=== PATIENT | male | born 1975 | race Caucasian/White ===

== ENCOUNTER 2019-04-28 12:08 | Inpatient (IN) | payer MEDICAID, SELFPAY | END 2019-04-30 15:40 | disposition home or self-care (01) | DRG 881 | PROVIDERS: Emergency Provider Emergency Medicine | DX: F32.9 Major depressive disorder, single episode, unspecified (principal); R45.851 Suicidal ideations; Z59.0 Homelessness; Z28.21 Immunization not carried out because of patient refusal; F20.1 Disorganized schizophrenia; F17.210 Nicotine dependence, cigarettes, uncomplicated ==

== ENCOUNTER 2019-05-05 22:16 | Inpatient (IN) | payer MEDICAID, SELFPAY ==
[2019-05-05 22:46] VITALS: BMI 31.1
[2019-05-05 22:54] VITALS: BP 122/94; PULSE 92; RESP 18; TEMP 36.6; O2SAT 98
--- NOTE | 2019-05-05 22:54 | ED_ITS ---
HPI - Psych General: Chief Complaint: Psychiatric Symptoms Stated Complaint: si/kidney pain Time Seen by Provider: 05/05/19 22:54 Source: patient Mode of arrival: ambulatory Limitations: no limitations History of Present Illness: HPI Narrative: pt states he is suicidal; reports 6-7 days ago he tried to OD on medications and was subsequently sent to [facility]; was released 5 days ago; pt reports meth use 5 days ago; reports he is homeless MD complaint: suicidal ideation Duration: constant History of same: Yes Relieving factors: none Context: recent drug abuse, significant life stressor and other (homelessness ) Associated symptoms: Reports depression and suicidal ideation Treatments prior to arrival: none Review of Systems Const: Denies: fever or chills Card: Denies: chest pain, palpitations, lightheadedness or syncope Resp: Denies: shortness of breath GI: Denies: abdominal pain, nausea, vomiting or diarrhea Skin/Breast: Denies: rash Neuro: Denies: headache Psych: Reports: depression and suicidal ideation PFSH ED PFSH: Statuses (acute, chronic, etc) shown below reflect problem list status as previously entered and may not be historically accurate Social History Smoking and tobacco status: current every day smoker Physical Exam Const: COMMON NORMALS: no apparent distress, oriented x3, alert and well nourished GENERAL APPEARANCE: cooperative and well kempt Resp: COMMON NORMALS: normal respiratory effort and clear to auscultation bilaterally AUSCULTATION: clear to auscultation bilaterally Cardio: COMMON NORMALS: regular rate and regular rhythm RATE: regular rate RHYTHM: regular rhythm Neuro: COMMON NORMALS: oriented x3 SENSORIUM/ORIENTATION: Yes alert Psych: COMMON NORMALS: mental status grossly normal, thought process normal, cooperative, affect normal, speech normal and activity/motor behavior normal APPEARANCE: Yes well kempt ACTIVITY/MOTOR BEHAVIOR: Yes appropriate eye contact and No psychomotor agitation SPEECH: Yes normal speech THOUGHT PROCESS: normal thought process MEMORY/COGNITION: Yes cognition grossly intact INSIGHT: insight good JUDGEMENT: judgment good MDM - Psych MDM Narrative: Medical decision making narrative: Dr. Byrd will place admit orders Lab Data: Labs: Lab Results 05/05/19 05/05/19 05/06/19 Range/Units 23:12 23:40 00:03 WBC 5.8 (4.0-10.0) 10^3/ uL RBC 4.92 (4.1-5.3) 10^6/u L Hgb 13.3 (11.7-16.6) g/dL Hct 41.5 L (42.0-52.0) % MCV 84.3 (80-94) fL MCH 27.0 L (28.0-34.0) pg MCHC 32.0 (30.0-36.0) g/dL RDW 12.5 (12.1-15.1) % Plt Count 275 (130-400) 10^3/c mm MPV 10.2 (7.4-10.4) fL Neut % (Auto) 42.2 % Lymph % (Auto) 45.8 % [place] % (Auto) 9.6 % Eos % (Auto) 1.9 % Baso % (Auto) 0.3 % Neut # (Auto) 2.5 (1.8-7.7) 10^3/u L Lymph # (Auto) 2.7 (0.8-4.8) 10^3/u L [place] # (Auto) 0.6 (0.2-0.9) 10^3/u L Eos # (Auto) 0.1 (0.0-0.8) 10^3/u L Baso # (Auto) 0.0 (0.0-0.1) 10^3/u L Nucleated RBC % (a uto) 0 % Nucleated RBCs # 0.0 /100WBC Sodium 137 (136-145) mmol/L Potassium 3.8 (3.5-5.1) mmol/L Chloride 100 (98-107) mmol/L Carbon Dioxide 26 (22-29) mmol/L Anion Gap 14.8 (5-19) BUN 9 (6-20) mg/dL Creatinine 0.6 L (0.7-1.2) mg/dL GFR Calculation 147.0 H (90-130) mL/min Glucose 90 (74-109) mg/dL Calcium 9.7 (8.6-10.0) mg/Dl Total Bilirubin 0.5 (0.15-1.2) mg/dL AST 29 (0-40) U/L ALT 32 (0-41) U/L Alkaline Phosphata se 82 (40-130) IU/L Total Protein 6.8 (6.6-8.7) g/dL Albumin 4.4 (3.5-5.2) g/dL Globulin 2.4 (1.3-4.6) g/dL Salicylates < 0.3 L (3-10) mg/dL Urine Opiates Scre en Negative (Negative) ng/mL Acetaminophen < 5.0 L (10-30) ug/mL Ur Barbiturates Sc reen Negative (Negative) ng/mL Ur Phencyclidine S crn Negative (Negative) ng/mL Ur Amphetamines Sc reen Positive H (Negative) ng/mL U Benzodiazepines Scrn Negative (Negative) ng/mL Urine Cocaine Scre en Negative (Negative) ng/mL U Marijuana (THC) Screen Negative (Negative) ng/mL Ethyl Alcohol < 10 (0-10) mg/dL Discharge Plan Discharge Patient Disposition: Home, Self-Care Clinical Impression: Suicidal ideation Condition: Stable Coding Level of Care Code ED Figurine Maker for Sriram Davalos Exam Problem Focused
[2019-05-05 23:22] LABS: Basophils % 0.3 %; Eosinophils # 0.1 10^3/uL (0.0-0.8); Eosinophils % 1.9 %; Hematocrit 41.5 % (42.0-52.0); Hemoglobin 13.3 g/dL (11.7-16.6); Lymphocytes # 2.7 10^3/uL (0.8-4.8); Lymphocytes % 45.8 %; Mean Corpuscular Volume 84.3 fL (80-94); Mean Platelet Volume 10.2 fL (7.4-10.4); Monocytes # 0.6 10^3/uL (0.2-0.9); Monocytes % 9.6 %; Neutrophils # 2.5 10^3/uL (1.8-7.7); Neutrophils % 42.2 %; Nucleated Red Blood Cells % 0 %; Platelet Count 275 10^3/cmm (130-400); Red Blood Count 4.92 10^6/uL (4.1-5.3); Red Cell Distribution Width 12.5 % (12.1-15.1); White Blood Count 5.8 10^3/uL (4.0-10.0)
[2019-05-06] VITALS (7 sets, daily range): BP systolic 109–133; BP diastolic 64–88; PULSE 68–90; RESP 14–20; TEMP 36.5–36.9; O2SAT 94–100
[2019-05-06 00:04] LABS: Alanine Aminotransferase 32 U/L (0-41); Albumin Level 4.4 g/dL (3.5-5.2); Alkaline Phosphatase 82 IU/L (40-130); Anion Gap 14.8 (5-19); Aspartate Amino Transferase 29 U/L (0-40); Blood Urea Nitrogen 9 mg/dL (6-20); Calcium 9.7 mg/Dl (8.6-10.0); Carbon Dioxide 26 mmol/L (22-29); Chloride 100 mmol/L (98-107); Globulin 2.4 g/dL (1.3-4.6); Glucose 90 mg/dL (74-109); Potassium 3.8 mmol/L (3.5-5.1); Sodium 137 mmol/L (136-145); Total Bilirubin 0.5 mg/dL (0.15-1.2); Total Protein 6.8 g/dL (6.6-8.7)
[2019-05-06 00:08] LABS: Acetaminophen < 5.0 ug/mL (10-30); Alcohol Level < 10 mg/dL (0-10); Salicylate < 0.3 mg/dL (3-10)
[2019-05-06 00:32] LABS: Barbiturates Screen Urine Negative (Negative); Benzodiazepines Screen Urine Negative (Negative); Cocaine Screen Urine Negative (Negative); Opiate Screen Urine Negative (Negative); PCP Screen Urine Negative (Negative); THC Screen Urine Negative (Negative)
[2019-05-06 00:34] LABS: Amphetamines Screen Urine Positive (Negative)
--- NOTE | 2019-05-06 13:37 | PM.NHP ---
Providers/Chief Complaint Admitting Physician: Jorge L Ceron MD Chief Complaint: si/kidney pain HPI [facility] History of Present Illness Yahir Kirkland is a 43 year old male who presented to the ED for as seventh hospitalization recently. He had 6 hospitalizations last year and the last 2 were very quick with him being admitted and being discharged within days. He presents reporting that he is homeless and he is needing his Abilify shot. Per his last hospitalization with Dr. Forrester it appears that he has struggled getting the 1 version of the injection Aristada. Further complicating matters is his continued addiction. He reports that he has been using methamphetamine and he is positive this time for meth. He reports that he has been working on and off that he has been on disability now for 10 years. He reports that last year his father and the property that he lived on was sold and things have been really tough since. He reports that he is on the Abilify injection and that he got it a week ago but we discussed the fact that he would need to continue with the oral medication for some period of time. Additionally we discussed the risks benefits and alternatives of considering naltrexone as an augmentation agent for his meth addiction that has shown some promise and he understood and agreed to proceed as is documented in this note. He denies any significant psychosocial changes since his last hospitalization. Per recent EVAL: History of Present Illness Date of Service: Mar 31, 2019 Chief Complaint: It's getting cold and I don't have any place to go. I was thinking about killing myself. HPI: History of present illness: Yahir Cancino presents on a voluntary basis for his fifth admission in 12 months. He vaguely reports suicidal ideation without intent or plan. He says that since his last admission here in November, he has not had any medication for the past month. He took the medications for a couple months and then stop mainly out of financial reasons. However he apparently did have money for access to methamphetamine. His urine drug screen is positive for meth. He does not give an estimate on how much she has been using. However he does report that he was charged with possession 2 weeks ago and has an upcoming court date. This is not supported by a surgeon public records at this time. Patient states that he is looking for a residential drug treatment. However the patient also states that one of his primary concerns at this time is that he is homeless and winter is coming. Otherwise he denies symptoms of depression. His suicidal ideation is passive only. He denies presence of auditory or visual hallucinations. He has good hedonic capacity. There is no apparent imminent risk to self or others. Patient is admitted under a voluntary status. Meds N[facility] Allergies Allergy/AdvReac Type Severity Reaction Status Date / Time No Known Allergies Allergy Verified 05/06/19 04:07 PFSH [facility] PFSH: Statuses (acute, chronic, etc) shown below reflect problem list status as previously entered and may not be historically accurate Social History Smoking and tobacco status: current every day smoker Mental Status Exam MSE Comments: This is an obese white male with adequate dress grooming and eye contact. No abnormal movements except for psychomotor retardation. Cooperative with exam in mild distress reportedly secondary to kidney stones. Speech was decreased rate and volume. Mood described as depressed affect congruent. Thought process organized. Thought content: Patient denied any homicidal ideation but did endorse suicidal ideation, there were no delusions reported or noted, he denied any auditory visual hallucinations. Attention and concentration were limited and memory appeared mostly reliable but none were formally tested. He is alert and oriented x3. Insight and judgment are limited versus impaired. Vitals/I&O/Wt Last Vital Signs Temp 98.4 F 05/06/19 13:58 Pulse 90 05/06/19 13:58 Resp 20 H 05/06/19 13:58 BP 133/81 05/06/19 13:58 Pulse Ox 100 05/06/19 13:58 Weight last 48 hrs Weight 102.693 kg Weight 104.326 kg A&P Assessment and plan (1) Adjustment disorder with mixed disturbance of emotions and conduct: This is a 43-year-old white male with a couple year history of depression and significant psychosocial stressors which have led to him being homeless and with limited resources even while on disability who presents struggling to have access to his medication. 1. Continue current medications. Except: 2. Start Abilify 10 mg p.o. every morning. And start naltrexone tomorrow. 3. Encouraged individual, group and milieu therapy. 4. Continue every 15 minute checks for safety. 5. Consider hospitalist consult for this reported kidney stone. Status: Acute Code(s): F43.25 - Adjustment disorder with mixed disturbance of emotions and conduct Involuntary Hold Information 96 Hour Hold: 96 Hour Involuntary Admission: No Attestations [facility] Medical Necessity Statement*: Inpatient hospitalization is medically necessary and the clinically appropriate intervention at this time. He will be in the hospital for over 2 midnights. We will initiate medication and titrate and monitor for effect. Likely length of stay 2 to 4 days. 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
[2019-05-06] MEDS: lithium carbonate 300 mg Capsule PO (17:17)
[2019-05-06] MEDS: trazodone 50 mg Tablet PO (21:08)
[2019-05-06] MEDS: doxepin 10 mg Capsule PO (21:08)
[2019-05-07 06:00] VITALS: BP 128/82; PULSE 66; RESP 18; TEMP 36.8; O2SAT 97
[2019-05-07] MEDS: acetaminophen 325 mg Tablet 650 MG PO ×2 (09:18→18:44)
[2019-05-07] MEDS: lithium carbonate 300 mg Capsule PO ×2 (09:19→17:12)
[2019-05-07 13:33] VITALS: BP 131/79; PULSE 75; RESP 18; TEMP 37; O2SAT 93
--- NOTE | 2019-05-07 14:19 | PM.NPN ---
Subjective [facility] Subjective: Interval history: Yahir presented today mostly disengaged. He has continued to stay to himself in his room mostly. He is not complaining as much today about his kidney issues. But he is not having a real sense of what his plan is. He was reluctant to the idea of starting the Abilify. But later in the day he agreed to started as I explained that he would only really need to take it for a period of time while we are waiting for the Abilify to fully take effect. He continues to be on board with the lithium and endorsed a willingness to work with the social work team we can find options for discharge. Mental Status Exam MSE Comments: This is an obese white male with adequate dress grooming and eye contact. No abnormal movements except for psychomotor retardation. Cooperative with exam in no acute distress. Speech was decreased rate and volume. Mood described as depressed affect congruent. Thought process organized. Thought content: Patient denied any homicidal ideation but did endorse suicidal ideation, there were no delusions reported or noted, he denied any auditory visual hallucinations. Attention and concentration were limited and memory appeared mostly reliable but none were formally tested. He is alert and oriented x3. Insight and judgment are limited versus impaired. Vitals/I&O/Wt Last Vital Signs Temp 98.2 F 05/08/19 06:00 Pulse 63 05/08/19 06:00 Resp 18 05/08/19 06:00 BP 149/85 05/08/19 06:00 Pulse Ox 97 05/08/19 06:00 A&P Additional A&P Information Additional A&P Information: This is a 43-year-old white male with a couple year history of depression and significant psychosocial stressors which have led to him being homeless and with limited resources even while on disability who presents struggling to have access to his medication. 1. Continue current medications. Except: 2. Start Abilify 15 mg p.o. every morning. And start naltrexone tomorrow. 3. Encouraged individual, group and milieu therapy. 4. Continue every 15 minute checks for safety. 5. Consider hospitalist consult for this reported kidney stone. Involuntary Hold Information 96 Hour Hold: 96 Hour Involuntary Admission: No Attestations [facility] Medical Necessity Statement*: Inpatient hospitalization is medically necessary and the clinically appropriate intervention at this time.We will initiate medication and titrate and monitor for effect. Likely length of stay 2 to 4 days. Coding Level of Care Code Acute C++ Quant Developer for Tanyag Anoop
[2019-05-07] MEDS: ARIPiprazole 30 mg Tablet 15 MG PO (18:43)
[2019-05-07] MEDS: doxepin 10 mg Capsule PO (20:41)
[2019-05-07 20:52] VITALS: BP 119/66; PULSE 83; RESP 16; TEMP 36.8; O2SAT 94
[2019-05-08 06:00] VITALS: BP 149/85; PULSE 63; RESP 18; TEMP 36.8; O2SAT 97
--- NOTE | 2019-05-08 07:25 | PM.NPN ---
Vitals/I&O/Wt Last Vital Signs Temp 98.2 F 05/08/19 06:00 Pulse 63 05/08/19 06:00 Resp 18 05/08/19 06:00 BP 149/85 05/08/19 06:00 Pulse Ox 97 05/08/19 06:00 Involuntary Hold Information 96 Hour Hold: 96 Hour Involuntary Admission: No Coding Level of Care Code Acute Manager Combination for Sriram Davalos
--- NOTE | 2019-05-08 08:28 | PM.NDC ---
Diagnoses at Discharge Discharge Diagnosis (1) Adjustment disorder with mixed disturbance of emotions and conduct: Status: Acute Reason for Visit Reason for Visit: Reason For Visit: si/kidney pain Brief History: HPI [facility] History of Present Illness Yahir Kirkland is a 43 year old male who presented to the ED for as seventh hospitalization recently. He had 6 hospitalizations last year and the last 2 were very quick with him being admitted and being discharged within days. He presents reporting that he is homeless and he is needing his Abilify shot. Per his last hospitalization with Dr. Forrester it appears that he has struggled getting the 1 version of the injection Aristada. Further complicating matters is his continued addiction. He reports that he has been using methamphetamine and he is positive this time for meth. He reports that he has been working on and off that he has been on disability now for 10 years. He reports that last year his father and the property that he lived on was sold and things have been really tough since. He reports that he is on the Abilify injection and that he got it a week ago but we discussed the fact that he would need to continue with the oral medication for some period of time. Additionally we discussed the risks benefits and alternatives of considering naltrexone as an augmentation agent for his meth addiction that has shown some promise and he understood and agreed to proceed as is documented in this note. He denies any significant psychosocial changes since his last hospitalization. Per recent EVAL: History of Present Illness Date of Service: Mar 31, 2019 Chief Complaint: It's getting cold and I don't have any place to go. I was thinking about killing myself. HPI: History of present illness: Yahir Cancino presents on a voluntary basis for his fifth admission in 12 months. He vaguely reports suicidal ideation without intent or plan. He says that since his last admission here in November, he has not had any medication for the past month. He took the medications for a couple months and then stop mainly out of financial reasons. However he apparently did have money for access to methamphetamine. His urine drug screen is positive for meth. He does not give an estimate on how much she has been using. However he does report that he was charged with possession 2 weeks ago and has an upcoming court date. This is not supported by a surgeon public records at this time. Patient states that he is looking for a residential drug treatment. However the patient also states that one of his primary concerns at this time is that he is homeless and winter is coming. Otherwise he denies symptoms of depression. His suicidal ideation is passive only. He denies presence of auditory or visual hallucinations. He has good hedonic capacity. There is no apparent imminent risk to self or others. Patient is admitted under a voluntary status. Hospital Course Hospital Course Yahir presented to the emergency room reporting lethality and active addiction. He endorsed not having access to his medication which was leading to poor choices. He was admitted to the neuropsychiatric unit where he slowly acclimated to the individual, group and milieu therapies provided. He was started on Abilify while we work with the social workers to figure out if we would be able to get his injections, and he responded well. During the hospitalization he had routine laboratory studies which were within normal limits except for a few outliers. Additionally he had a general medical evaluation which was also within normal limits and revealed no acute processes. Discharge Summary At the time of discharge he denied all lethality, his mood and psychosis had improved and he endorsed a plan to follow-up with outpatient services and the recommendations of the social workers and attempt to get some psychosocial stability in his life. He had achieved the maximum benefit from an inpatient hospitalization so he was discharged. Involuntary Hold Information 96 Hour Hold: 96 Hour Involuntary Admission: No Mental Status Exam MSE Comments: This is an obese white male with adequate dress grooming and eye contact. No abnormal movements except for psychomotor retardation. Cooperative with exam in no acute distress. Speech was decreased rate and volume. Mood described as better affect less subdued. Thought process organized. Thought content: Patient denied any suicidal or homicidal ideation, there were no delusions reported or noted, he denied any auditory visual hallucinations. Attention and concentration were improved and memory appeared mostly reliable but none were formally tested. He is alert and oriented x3. Insight and judgment are improving. Discharge Data Vitals: Last Vital Signs Temp 97.8 F 05/08/19 15:15 Pulse 81 05/08/19 15:15 Resp 20 H 05/08/19 15:15 BP 130/81 05/08/19 15:15 Pulse Ox 98 05/08/19 15:15 Discharge Plan Discharge Patient Disposition: Home, Self-Care Condition: Stable Prescriptions: No Action naproxen [EC-Naprosyn] 500 mg tablet,delayed release (DR/EC) 500 mg PO BID PRN (Reason: pain) Qty: 20 RF: 0 trazodone 50 mg Tablet 50 mg PO BEDTIME PRN (Reason: Sleep) Qty: 15 RF: 1 lithium carbonate 300 mg Capsule 300 mg PO BID Qty: 60 RF: 2 gabapentin 100 mg Capsule 100 mg PO TID Qty: 90 RF: 0 aripiprazole 30 mg Tablet 15 mg PO DAILY Qty: 30 RF: 2 Discharge Orders: Discharge Order (Routine); Ordered 05/08/19 Ordered By: Jorge L Ceron Patient Instructions: Depression, Doxepin (By mouth), [place] (By mouth), Aripiprazole (By mouth) Activity Restrictions/Additional Instructions: db To initiate services at [facility] you may go there during the walk-in hours and request initial intake. Walk-in hours 7:30-2:[address] 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
[2019-05-08] MEDS: ARIPiprazole 30 mg Tablet 15 MG PO (08:55)
[2019-05-08] MEDS: lithium carbonate 300 mg Capsule PO (08:56)
[2019-05-08 13:47] VITALS: BP 130/81; PULSE 81; RESP 20; TEMP 36.6; O2SAT 98
[2019-05-08 15:12] VITALS: BP 130/81; PULSE 81; RESP 20; TEMP 36.6; O2SAT 98
[2019-05-08 15:15] VITALS: BP 130/81; PULSE 81; RESP 20; TEMP 36.6; O2SAT 98
== END 2019-05-08 15:38 | disposition home or self-care (01) | DRG 882 ==
LOC: ER 05-06 00:30 → NP 05-06 00:58
PROVIDERS: Admitting Provider Psychiatry & Neurology Psychiatry; Emergency Provider Physician Assistant; Visit Provider Psychiatry & Neurology Psychiatry
DX: F43.25 Adjustment disorder with mixed disturbance of emotions and conduct (principal); F15.90 Other stimulant use, unspecified, uncomplicated; F17.210 Nicotine dependence, cigarettes, uncomplicated; Z59.0 Homelessness
CPT/HCPCS: 36415; 80053; 80307; 85025; 99284

== ENCOUNTER 2019-05-05 22:16 | Emergency (ER) | payer MEDICAID, SELFPAY | END 2019-05-06 02:07 | disposition admitted as inpatient to this hospital (09) | LOC: ER 06-15 09:54 | PROVIDERS: Emergency Provider Physician Assistant; PCP Urology | DX: F32.9 Major depressive disorder, single episode, unspecified (principal); R45.851 Suicidal ideations; F17.210 Nicotine dependence, cigarettes, uncomplicated; F19.10 Other psychoactive substance abuse, uncomplicated; Z59.0 Homelessness | CPT/HCPCS: 36415; 80053; 80307; 85025; 99284; 99285 ==

== ENCOUNTER 2019-05-15 17:43 | Emergency (ER) | payer MEDICAID, SELFPAY ==
[2019-05-15 18:07] VITALS: BP 118/78; PULSE 86; RESP 16; TEMP 36.6; O2SAT 98; BMI 29.8
[2019-05-15 19:02] LABS: Basophils % 0.4 %; Eosinophils # 0.1 10^3/uL (0.0-0.8); Eosinophils % 2.3 %; Hematocrit 41.3 % (42.0-52.0); Hemoglobin 13.5 g/dL (11.7-16.6); Lymphocytes # 2.5 10^3/uL (0.8-4.8); Lymphocytes % 47.4 %; Mean Corpuscular HGB Conc 32.7 g/dL (30.0-36.0); Mean Corpuscular Volume 85.5 fL (80-94); Mean Platelet Volume 9.6 fL (7.4-10.4); Monocytes # 0.3 10^3/uL (0.2-0.9); Neutrophils # 2.3 10^3/uL (1.8-7.7); Neutrophils % 43.7 %; Nucleated Red Blood Cells % 0 %; Platelet Count 200 10^3/cmm (130-400); Red Blood Count 4.83 10^6/uL (4.1-5.3); Red Cell Distribution Width 12.6 % (12.1-15.1); White Blood Count 5.2 10^3/uL (4.0-10.0)
[2019-05-15 19:50] LABS: Blood Urea Nitrogen 7 mg/dL (6-20); Calcium 9.7 mg/Dl (8.6-10.0); Carbon Dioxide 25 mmol/L (22-29); Chloride 101 mmol/L (98-107); Glomerular Filtration Rate 92.1 mL/min (90-130); Glucose 113 mg/dL (74-109); Sodium 138 mmol/L (136-145)
[2019-05-15 20:21] VITALS: BP 147/84; PULSE 78; RESP 17; O2SAT 98
--- NOTE | 2019-05-15 20:21 | PC.NURSE ---
Patient reports My kidney is hurting me. Patient states the pain has been getting worse. Patient states he has had a little burning with urination and dark urine.
--- NOTE | 2019-05-15 20:24 | ED_ITS ---
Entered by Sheela Gar, acting as scribe for Mora Canseco MD May 15, 2019 17:43 HPI - Abdominal Pain General: Chief Complaint: Abdominal Pain Stated Complaint: kidneys hurt Time Seen by Provider: 05/15/19 20:22 Source: patient Mode of arrival: ambulatory Limitations: no limitations History of Present Illness: HPI narrative: 43 y/o male presents to the ED with complaint of flank pain. Pt states this has been going on for several days and tonight it is worse. MD elicited complaint: flank pain Onset (ago): day(s) Pain Consistency: constant Quality: stabbing Relieving factors: nothing Associated Symptoms: Denies chills, diarrhea, fever(s), nausea and vomiting Review of Systems Const: Denies: fever or chills Eyes: Denies: change in vision ENMT: Denies: throat pain or mouth pain Card: Denies: chest pain Resp: Denies: shortness of breath GI: Denies: nausea, vomiting or diarrhea : Reports: flank pain Musc: Denies: joint pain Skin/Breast: Denies: rash Neuro: Denies: headache or behavioral changes Psych: Reports: anxiety Endo: Denies: excessive urination Bull/Lymph: Denies: easy bruising All/Imm: Denies: hives PFSH ED PFSH: Statuses (acute, chronic, etc) shown below reflect problem list status as previously entered and may not be historically accurate Medical History (Updated 05/15/19 @ 21:49 by Mora Canseco MD) Psychotic disorder (Acute) Social History Smoking and tobacco status: current every day smoker Physical Exam Const: COMMON NORMALS: no apparent distress, oriented x3 and healthy appearing HENMT: COMMON NORMALS: normocephalic and external nose normal HEAD & SCALP: normocephalic NOSE: external nose normal Eye: COMMON NORMALS: PERRL PUPIL: Yes PERRL Neck/C-Spine: COMMON NORMALS: full ROM and no lymphadenopathy Chest: COMMONS NORMALS: inspection of chest normal Resp: COMMON NORMALS: normal respiratory effort, no use of accessory muscles and clear to auscultation bilaterally AUSCULTATION: clear to auscultation bilaterally Cardio: COMMON NORMALS: regular rate and regular rhythm RATE: regular rate RHYTHM: regular rhythm GI: COMMON NORMALS: normal to inspection, nondistended, normoactive bowel sounds, soft to palpation, non-tender and no masses PALPATION: Yes soft OTHER: bilateral mild flank pain Back/Pelvis: THORACIC SPINE/UPPER BACK: Yes normal to inspection Extremity: COMMON NORMALS: normal to inspection, full ROM and normal capillary refill Neuro: COMMON NORMALS: oriented x3 Psych: COMMON NORMALS: mental status grossly normal and cooperative Skin: COMMON NORMALS: no rashes or lesions noted GENERAL SKIN EXAM: no rashes or lesions noted Course Vital Signs: Vital signs: Vital Signs Temperature 97.9 F 05/15/19 18:07 Pulse Rate 79 05/15/19 22:00 Respiratory Rate 17 05/15/19 22:00 Blood Pressure 141/85 05/15/19 22:00 Pulse Oximetry 98 05/15/19 22:00 MDM - Abdominal Pain MDM Narrative: Medical decision making narrative: Patient presents with flank pain. Bilateral nature and he does have point tenderness. Patient does have slight hematuria. Patient is not in severe pain and has no signs of acute kidney stone causing obstruction. Lab work here is normal including a normal white count. Patient is stable for discharge and is to follow-up with primary care doctor in 3 to 5 days and return if worsening. Lab Data: Labs: Lab Results 05/15/19 05/15/19 05/15/19 Range/Units 02:38 18:45 18:45 WBC 5.2 (4.0-10.0) 10^3/ uL RBC 4.83 (4.1-5.3) 10^6/u L Hgb 13.5 (11.7-16.6) g/dL Hct 41.3 L (42.0-52.0) % MCV 85.5 (80-94) fL MCH 28.0 (28.0-34.0) pg MCHC 32.7 (30.0-36.0) g/dL RDW 12.6 (12.1-15.1) % Plt Count 200 (130-400) 10^3/c mm MPV 9.6 (7.4-10.4) fL Neut % (Auto) 43.7 % Lymph % (Auto) 47.4 % [place] % (Auto) 6.0 % Eos % (Auto) 2.3 % Baso % (Auto) 0.4 % Neut # (Auto) 2.3 (1.8-7.7) 10^3/u L Lymph # (Auto) 2.5 (0.8-4.8) 10^3/u L [place] # (Auto) 0.3 (0.2-0.9) 10^3/u L Eos # (Auto) 0.1 (0.0-0.8) 10^3/u L Baso # (Auto) 0.0 (0.0-0.1) 10^3/u L Nucleated RBC % (a uto) 0 % Nucleated RBCs # 0.0 /100WBC Sodium 138 (136-145) mmol/L Potassium 4.0 (3.5-5.1) mmol/L Chloride 101 (98-107) mmol/L Carbon Dioxide 25 (22-29) mmol/L Anion Gap 16.0 (5-19) BUN 7 (6-20) mg/dL Creatinine 0.9 (0.7-1.2) mg/dL GFR Calculation 92.1 (90-130) mL/min Glucose 113 H (74-109) mg/dL Calcium 9.7 (8.6-10.0) mg/Dl Urine Color Yellow (Yellow) Urine Appearance Clear (CLEAR) Urine pH 6 (5-7) Ur Specific Gravit y 1.010 (1.005-1.030) Urine Protein Neg (Negative) Urine Glucose (UA) Norm (Normal) Urine Ketones Negative (Negative) Urine Occult Blood 2+ H (Negative) Urine Nitrate Negative (Negative) Urine Bilirubin Neg (NEGATIVE) Urine Urobilinogen Norm (Negative) mg/dL Ur Leukocyte Lisa ase Negative (Negative) Urine RBC 10-15 H (0-2) /hpf Urine WBC None (0-5) /hpf Ur Squamous Epith Cells None (0-5) Ur Transition Epit h Cell None /hpf Ur Renal Epithelia l Cell None /hpf Urine Bacteria None (NONE) Urine Mucus 1+ Discharge Plan Discharge Patient Disposition: Home, Self-Care Clinical Impression: Abdominal pain Qualifiers: Abdominal location: generalized Qualified Code(s): R10.84 - Generalized abdominal pain Back pain Qualifiers: Back pain location: low back pain Chronicity: acute Back pain laterality: bilateral Sciatica presence: without sciatica Qualified Code(s): M54.5 - Low back pain Condition: Stable Prescriptions: New EC-Naprosyn 500 mg tablet,delayed release (DR/EC) 500 mg PO BID PRN (Reason: pain) Qty: 20 RF: 0 No Action doxepin 10 mg Capsule 10 mg PO BEDTIME 30 Days Qty: 30 RF: 1 lithium carbonate 300 mg Capsule 300 mg PO BID 30 Days Qty: 60 RF: 0 aripiprazole 30 mg Tablet 15 mg PO DAILY 14 Days Qty: 14 RF: 0 Discharge Orders: Discharge Order (Routine); Ordered 05/15/19 Ordered By: Mora Canseco Discharge Diet: Advance as tolerated Discharge Activity: Resume usual activity Patient Instructions: Abdominal Pain (ED) Discharge Date/Time: 05/15/19 22:00 Coding Level of Care Code ED Mail Machine Operator for Chg Fwd Exam Problem Focused The documentation recorded by the Cong [employer] Ashley, accurately reflects the service I personally performed and the decisions made by Harleen bui Korby, MD May 15, 2019 17:43
[2019-05-15] MEDS: metoclopramide 5 mg/mL SDV 2 mL 10 MG IM (20:32)
[2019-05-15] MEDS: diphenhydrAMINE 50 mg/mL SDV 1mL IM (20:33)
--- NOTE | 2019-05-15 21:28 | PC.NURSE ---
Patient has bruise to the inner right knee and the inner left knee. Patient has abrasions to the left outer knee. Patient also has a bruise to the outer left ya.
[2019-05-15 21:29] LABS: Urine Color Yellow (Yellow)
[2019-05-15 21:30] LABS: Add Urine Microscopic? YES; Bilirubin Urine Neg (NEGATIVE); Blood Urine 2+ (Negative); Glucose Urine UA Norm (Normal); Ketones Urine Negative (Negative); Leukocyte Esterase Urine Negative (Negative); Nitrate Urine Negative (Negative); Protein Urine Neg (Negative); Urine Appearance Clear (CLEAR); Urobilinogen Urine Norm (Negative); pH Urine 6 (5-7)
[2019-05-15 21:37] LABS: Mucus Urine 1+
[2019-05-15 21:38] LABS: Add Urine Culture? Yes
[2019-05-15 22:00] VITALS: BP 141/85; PULSE 79; RESP 17; O2SAT 98
== END 2019-05-15 22:00 | disposition home or self-care (01) ==
PROVIDERS: Emergency Provider Emergency Medicine
DX: R10.84 Generalized abdominal pain (principal); M54.5 Low back pain; F17.210 Nicotine dependence, cigarettes, uncomplicated
CPT/HCPCS: 36415; 80048; 81003; 85025; 96372; 99282; J1200; J2765

== ENCOUNTER 2019-05-18 00:05 | Emergency (ER) | payer MEDICAID, SELFPAY ==
[2019-05-18 00:12] VITALS: BP 142/94; PULSE 65; RESP 17; TEMP 36.4; O2SAT 100; BMI 29.8
--- NOTE | 2019-05-18 00:18 | W.ED.DENTAL ---
HPI - Dental/Oral General: Chief complaint: Dental/Oral Stated complaint: DENTAL PAIN Time Seen by Provider: 05/18/19 00:17 History of Present Illness: HPI Narrative: Patient is a 43-year-old male comes to the ED with dental pain. Says the pain started Yesterday. He says he has had dental issues in the past. Said it's his back right lower mandible molar teeth that are bothering him. He currently does not have a dentist but is aware of a clinic in [place], [place] That he could call and try to set up an appointment. He says it's painful to touch the right lower jaw and he says he has a little bit of swelling. Denies any fever, chills, chest pain, shortness of breath, nausea, vomiting, abdominal pain, numbness tingling, weakness to extremities, dysuria and bowel symptoms. Patient was here for a kidney stone on May 15, 2019. He states he still has not passed the kidney stone. Review of Systems General: Reports: 10 or more systems reviewed and unremarkable except in HPI and below PFSH ED PFSH: Statuses (acute, chronic, etc) shown below reflect problem list status as previously entered and may not be historically accurate Medical History Psychotic disorder (Acute) Social History Smoking and tobacco status: current every day smoker Physical Exam Const: COMMON NORMALS: oriented x3 HENMT: COMMON NORMALS: normocephalic HEAD & SCALP: normocephalic FACE & SINUS: face symmetric (No facial swelling seen) and facial tenderness (Lower mandible-mild) on the right; no facial edema MOUTH: oral and palatal mucosa normal TEETH & GINGIVA: Yes abnormal tooth and associated gingiva (Mild tenderness and swelling gums on lower right mandible near molars), Yes caries, Yes gingiva abnormal (Mild) edematous and tender and Yes poor dentition THROAT: posterior oropharynx normal and uvula midline Neck/C-Spine: COMMON NORMALS: supple GENERAL: Yes normal visual inspection Resp: COMMON NORMALS: normal respiratory effort, no retractions, no use of accessory muscles and clear to auscultation bilaterally AUSCULTATION: clear to auscultation bilaterally Cardio: COMMON NORMALS: regular rate, regular rhythm, S1 normal heart sound, S2 normal heart sound, no gallops, no clicks, no murmurs and peripheral pulses 2+ throughout RATE: regular rate RHYTHM: regular rhythm HEART SOUNDS: S1 normal and S2 normal PERIPHERAL PULSES: pulses 2+ throughout GI: COMMON NORMALS: normal to inspection, nondistended, normoactive bowel sounds, soft to palpation, non-tender and no masses PALPATION: Yes soft : COMMON NORMALS: Yes no CVA tenderness BLADDER/KIDNEY EXAM: Yes no CVA tenderness Back/Pelvis: COMMON NORMALS: no CVA tenderness Neuro: COMMON NORMALS: oriented x3 and moves all extremities Course Vital Signs: Vital signs: Vital Signs Temperature 98.4 F 05/18/19 00:48 Pulse Rate 88 05/18/19 00:48 Respiratory Rate 16 05/18/19 00:48 Blood Pressure 114/69 05/18/19 00:48 Pulse Oximetry 94 05/18/19 00:48 Discharge Plan Discharge Patient Disposition: Home, Self-Care Clinical Impression: Pain due to dental caries Condition: Stable Prescriptions: New clindamycin HCl 150 mg capsule 300 mg PO QID 7 Days Qty: 56 RF: 0 No Action EC-Naprosyn 500 mg tablet,delayed release (DR/EC) 500 mg PO BID PRN (Reason: pain) Qty: 20 RF: 0 doxepin 10 mg Capsule 10 mg PO BEDTIME 30 Days Qty: 30 RF: 1 lithium carbonate 300 mg Capsule 300 mg PO BID 30 Days Qty: 60 RF: 0 aripiprazole 30 mg Tablet 15 mg PO DAILY 14 Days Qty: 14 RF: 0 Discharge Orders: Discharge Order (Routine); Ordered 05/18/19 Ordered By: Pavel Rogers Discharge Diet: Regular Discharge Activity: Resume usual activity Activity Restrictions/Additional Instructions: Call and set up an appointment with a dentist in the next 7-10 days for reevaluation. Take full course of antibiotics as prescribed. Take naproxen or ibuprofen as needed for pain or fevers. Apply warm moist heat and tender area and jaw. Discharge Date/Time: 05/18/19 00:48 Coding Level of Care Code ED Community Relations Police Lieutenant for Sriram Davalos
[2019-05-18] MEDS: HYDROcodone-acetaminophen 5-325 mg Tablet 1 TAB PO (00:36)
[2019-05-18 00:48] VITALS: BP 114/69; PULSE 88; RESP 16; TEMP 36.9; O2SAT 94
--- NOTE | 2019-05-18 13:56 | DCPLANNER ---
funeral home manager had message to help patient with a follow up appointment to a dentist. funeral home manager called patient to inform patient that there is a dentist in [place] at [facility] that accepts adult medicaid. funeral home manager was going to give patient the phone number to the clinic. funeral home manager unable to speak with patient at this time, a voicemail was left for patient to return case finisher phone call.
== END 2019-05-18 00:48 | disposition home or self-care (01) ==
PROVIDERS: Emergency Provider Physician Assistant
DX: K02.9 Dental caries, unspecified (principal); F17.210 Nicotine dependence, cigarettes, uncomplicated
CPT/HCPCS: 99281

== ENCOUNTER 2019-05-18 18:01 | Inpatient (IN) | payer MEDICAID, SELFPAY ==
[2019-05-18 18:11] VITALS: BP 147/98; PULSE 84; RESP 16; O2SAT 97; BMI 31.1
--- NOTE | 2019-05-18 18:20 | W.ED.PSYCH ---
HPI - Psych General: Chief Complaint: Psychiatric Symptoms Stated Complaint: SI Time Seen by Provider: 05/18/19 18:14 History of Present Illness: MD complaint: suicidal ideation and feels depressed Duration: constant History of same: Yes Relieving factors: none Exacerbating factors: other (homeless, lack of resources) Associated psychiatric symptoms: depression and suicidal ideation Associated symptoms: Reports depression and suicidal ideation Treatments prior to arrival: none If self harm: admits thoughts of self harm and has plan Review of Systems Const: Denies: fever, chills, change in appetite or malaise Eyes: Denies: change in vision, blurry vision, eye discharge or eye redness ENMT: Denies: throat pain, uvular edema, painful swallowing, mouth pain, dental pain, nasal congestion or facial/sinus pain Card: Denies: chest pain, irregular heart rhythm, swelling of feet/ankles, shortness of breath on exertion, shortness of breath when lying down or leg pain with exertion Resp: Denies: shortness of breath, productive cough, wheezing or coughing up blood GI: Denies: abdominal pain, nausea, vomiting, diarrhea, constipation or fecal incontinence : Denies: flank pain, painful urination, urinary frequency, urinary urgency or urinary hesitancy Musc: Denies: neck pain, back pain, extremity pain or extremity swelling Skin/Breast: Denies: rash, itching, redness, yellow skin or dry skin Neuro: Denies: headache, numbness in extremities, weakness in extremities, changes in sensation, lack of coordination or difficulty walking Psych: Reports: depression, sleeping less and suicidal ideation Endo: Denies: excessive urination, excessive thirst or tired all the time Bull/Lymph: Denies: easy bruising, petechiae or enlarged lymph nodes All/Imm: Denies: hives, throat swelling, facial swelling, acute wheezing or seasonal allergies PFSH ED PFSH: Statuses (acute, chronic, etc) shown below reflect problem list status as previously entered and may not be historically accurate Medical History Psychotic disorder (Acute) Social History Smoking and tobacco status: current every day smoker Physical Exam Const: COMMON NORMALS: no apparent distress, oriented x3, no limitations, healthy appearing, alert and well nourished GENERAL APPEARANCE: cooperative, comfortable, well kempt and well developed ORIENTATION/CONSCIOUSNESS: Yes awake, Yes oriented to person, Yes oriented to place and Yes oriented to time HENMT: COMMON NORMALS: normocephalic, head/scalp atraumatic, hearing grossly normal bilaterally, external ears normal, EAC's normal, TM's normal bilaterally, external nose normal, nasal mucous membranes and turbinates normal, moist oral mucous membranes, oropharynx normal, dentition normal and gingiva normal HEAD & SCALP: normal to inspection, normocephalic and atraumatic FACE & SINUS: normal facial exam NOSE: external nose normal and nasal mucous membranes and turbinates normal EXTERNAL EAR: Yes external ears normal EXTERNAL AUDITORY CANAL: EAC's normal TYMPANIC MEMBRANE: TM's normal bilaterally MOUTH: oral and palatal mucosa normal, lip normal and tongue normal THROAT: no uvular edema Eye: COMMON NORMALS: PERRL, EOMs intact bilaterally, conjunctivae normal, no scleral icterus and normal visual camp by confrontation GENERAL EYE: normal appearance of both eyes and normal light reflex VISUAL ACUITY: Yes acuity normal ALIGNMENT: Yes alignment normal PERIORBITAL: periorbital findings normal EYELID: eyelids normal CONJUNCTIVA: Yes conjunctivae normal SCLERA: sclerae normal PUPIL: Yes PERRL and Yes accommodation reflex normal DIRECT OPHTHALMOSCOPY: Yes normal light reflex Neck/C-Spine: COMMON NORMALS: full ROM, no lymphadenopathy, supple, no meningeal signs and no JVD GENERAL: Yes normal visual inspection CAROTIDS: Yes normal carotid upstroke CERVICAL SPINE: Yes cervical ROM normal Lymph: LYMPHATIC: no lymphadenopathy noted Chest: COMMONS NORMALS: inspection of chest normal CHEST: Yes symmetrical chest wall rise Resp: COMMON NORMALS: normal respiratory effort, no retractions, no use of accessory muscles and clear to auscultation bilaterally EFFORT & INSPECTION: Yes able to speak in complete sentences and Yes symmetric chest movement AUSCULTATION: clear to auscultation bilaterally Cardio: COMMON NORMALS: no JVD, regular rate, regular rhythm, S1 normal heart sound, S2 normal heart sound, no murmurs and peripheral pulses 2+ throughout RATE: regular rate RHYTHM: regular rhythm HEART SOUNDS: S1 normal and S2 normal PERIPHERAL PULSES: pulses 2+ throughout GI: COMMON NORMALS: normal to inspection, nondistended, normoactive bowel sounds and non-tender : COMMON NORMALS: Yes no CVA tenderness BLADDER/KIDNEY EXAM: Yes no CVA tenderness Back/Pelvis: COMMON NORMALS: no CVA tenderness, thoracic and lumbar spine normal to inspection, no thoracic nor lumbar tenderness and thoraco-lumbar ROM normal Extremity: COMMON NORMALS: normal to inspection, full ROM, normal capillary refill, no calf tenderness and no pedal edema Neuro: COMMON NORMALS: oriented x3, CN's II-XII intact bilaterally, moves all extremities, no focal motor deficits, no sensory deficits noted and gait normal SENSORIUM/ORIENTATION: Yes alert, Yes oriented to person, Yes oriented to place and Yes oriented to time MENINGEAL SIGNS: Yes no meningeal signs SPEECH: speech normal GAIT: Yes normal gait MOTOR EXAM: strength 5/5 throughout, no pronator drift and no tremor noted Psych: COMMON NORMALS: mental status grossly normal, thought process normal, cooperative, speech normal and activity/motor behavior normal APPEARANCE: Yes grossly normal and Yes well kempt ATTITUDE: Yes calm ACTIVITY/MOTOR BEHAVIOR: Yes appropriate eye contact SPEECH: Yes normal speech MOOD & AFFECT: Yes depressed mood THOUGHT PROCESS: normal thought process THOUGHT CONTENT: Yes suicidality ATTENTION/CONCENTRATION: Yes attention grossly intact and Yes concentration grossly intact MEMORY/COGNITION: Yes memory grossly intact and Yes cognition grossly intact (is aware that his circumstances in life now are due to poor life decisions) INSIGHT: insight good JUDGEMENT: fair Skin: COMMON NORMALS: no rashes or lesions noted, no wounds, skin turgor normal and no jaundice GENERAL SKIN EXAM: no rashes or lesions noted and turgor normal MDM - Psych Differential Diagnosis: Psych Differential Diagnosis: Likely suicidal ideation and depression Lab Data: Attestation: I reviewed the patient's lab results. Labs: Lab Results 05/18/19 05/18/19 Range/Units 19:38 19:38 WBC 5.7 (4.0-10.0) 10^3/ uL RBC 4.74 (4.1-5.3) 10^6/u L Hgb 12.7 (11.7-16.6) g/dL Hct 40.3 L (42.0-52.0) % MCV 85.0 (80-94) fL MCH 26.8 L (28.0-34.0) pg MCHC 31.5 (30.0-36.0) g/dL RDW 12.5 (12.1-15.1) % Plt Count 177 (130-400) 10^3/c mm MPV 9.8 (7.4-10.4) fL Neut % (Auto) 55.1 % Lymph % (Auto) 34.6 % [place] % (Auto) 6.9 % Eos % (Auto) 3.0 % Baso % (Auto) 0.2 % Neut # (Auto) 3.1 (1.8-7.7) 10^3/u L Lymph # (Auto) 2.0 (0.8-4.8) 10^3/u L [place] # (Auto) 0.4 (0.2-0.9) 10^3/u L Eos # (Auto) 0.2 (0.0-0.8) 10^3/u L Baso # (Auto) 0.0 (0.0-0.1) 10^3/u L Nucleated RBC % (a uto) 0 % Nucleated RBCs # 0.0 /100WBC Sodium 138 (136-145) mmol/L Potassium 4.0 (3.5-5.1) mmol/L Chloride 102 (98-107) mmol/L Carbon Dioxide 27 (22-29) mmol/L Anion Gap 13.0 (5-19) BUN 7 (6-20) mg/dL Creatinine 0.8 (0.7-1.2) mg/dL GFR Calculation 105.5 (90-130) mL/min Glucose 92 (74-109) mg/dL Calcium 9.5 (8.6-10.0) mg/Dl Total Bilirubin 0.2 (0.15-1.2) mg/dL AST 26 (0-40) U/L ALT 37 (0-41) U/L Alkaline Phosphata se 75 (40-130) IU/L Total Protein 6.6 (6.6-8.7) g/dL Albumin 4.0 (3.5-5.2) g/dL Globulin 2.6 (1.3-4.6) g/dL TSH 2.89 (0.27-4.20) uIU/ mL Salicylates < 0.3 L (3-10) mg/dL Acetaminophen < 5.0 L (10-30) ug/mL Ethyl Alcohol < 10 (0-10) mg/dL Discharge Plan Discharge Patient Disposition: Psych Hosp/Unit w Plan Readm Clinical Impression: Depression, Depression with suicidal ideation Condition: Stable Prescriptions: No Action naproxen [EC-Naprosyn] 500 mg tablet,delayed release (DR/EC) 500 mg PO BID PRN (Reason: pain) Qty: 20 RF: 0 clindamycin HCl 150 mg capsule 300 mg PO QID 7 Days Qty: 56 RF: 0 doxepin 10 mg Capsule 10 mg PO BEDTIME 30 Days Qty: 30 RF: 1 lithium carbonate 300 mg Capsule 300 mg PO BID 30 Days Qty: 60 RF: 0 aripiprazole 30 mg Tablet 15 mg PO DAILY 14 Days Qty: 14 RF: 0 Coding Level of Care Code ED Alternative Dispute Resolution Mediator for Sriram Davalos Exam Problem Focused
--- NOTE | 2019-05-18 19:18 | ECG_ITS ---
Measurements Intervals Bertrand Rate: 82 P: 30 MS: 160 QRS: 31 QRSD: 112 T: 75 QT: 393 QTc: 460 SINUS RHYTHM MODERATE INTRAVENTRICULAR CONDUCTION DELAY [110+ ms QRS DURATION] NONSPECIFIC T-WAVE ABNORMALITY Compared to ECG 01/04/2019 23:06:37 Intraventricular conduction delay now present T-wave abnormality still present Electronically Signed On 05-19-2019 11:27:49 [employer]OOK [employer]YRUP MAKER by Jm Anne M.D. [email or web address]
--- NOTE | 2019-05-18 19:26 | PC.NURSE ---
Introduced self to patient and initiated vital signs. Pt is A&O x 4 and agreeable. Pt states that the reason for the ER visit today is due to feelings of wanting to commit suicide. Pt states that he will take all of his meds in order to commit suicide if ne needs to. Pt states that he has been feeling this way for approximately 1 month. Reassured patient of needs and will continue to monitor. Awaiting provider at bedside.
[2019-05-18 19:43] LABS: Basophils % 0.2 %; Eosinophils # 0.2 10^3/uL (0.0-0.8); Hematocrit 40.3 % (42.0-52.0); Hemoglobin 12.7 g/dL (11.7-16.6); Lymphocytes % 34.6 %; Mean Corpuscular HGB Conc 31.5 g/dL (30.0-36.0); Mean Corpuscular Hemoglobin 26.8 pg (28.0-34.0); Mean Platelet Volume 9.8 fL (7.4-10.4); Monocytes # 0.4 10^3/uL (0.2-0.9); Monocytes % 6.9 %; Neutrophils # 3.1 10^3/uL (1.8-7.7); Neutrophils % 55.1 %; Nucleated Red Blood Cells % 0 %; Platelet Count 177 10^3/cmm (130-400); Red Blood Count 4.74 10^6/uL (4.1-5.3); Red Cell Distribution Width 12.5 % (12.1-15.1); White Blood Count 5.7 10^3/uL (4.0-10.0)
[2019-05-18 20:07] LABS: Alanine Aminotransferase 37 U/L (0-41); Alkaline Phosphatase 75 IU/L (40-130); Aspartate Amino Transferase 26 U/L (0-40); Blood Urea Nitrogen 7 mg/dL (6-20); Calcium 9.5 mg/Dl (8.6-10.0); Carbon Dioxide 27 mmol/L (22-29); Chloride 102 mmol/L (98-107); Globulin 2.6 g/dL (1.3-4.6); Glomerular Filtration Rate 105.5 mL/min (90-130); Glucose 92 mg/dL (74-109); Sodium 138 mmol/L (136-145); Thyroid Stimulating Hormone 2.89 uIU/mL (0.27-4.20); Total Bilirubin 0.2 mg/dL (0.15-1.2); Total Protein 6.6 g/dL (6.6-8.7)
[2019-05-18 20:08] LABS: Salicylate < 0.3 mg/dL (3-10)
[2019-05-18 20:09] LABS: Acetaminophen < 5.0 ug/mL (10-30); Alcohol Level < 10 mg/dL (0-10)
[2019-05-18 20:53] VITALS: BP 131/64; PULSE 78; RESP 18; O2SAT 94
[2019-05-18 21:27] VITALS: BP 145/61; PULSE 81; RESP 18; O2SAT 94
[2019-05-18 21:45] VITALS: BP 121/71; PULSE 78; RESP 18; TEMP 36.9; O2SAT 96
[2019-05-18 22:02] VITALS: BP 125/86; PULSE 77; RESP 18; TEMP 36.6; O2SAT 94
[2019-05-18 23:34] LABS: Add Urine Microscopic? NO
[2019-05-18 23:44] LABS: Bilirubin Urine Neg (NEGATIVE); Blood Urine Neg (Negative); Glucose Urine UA Norm (Normal); Ketones Urine Negative (Negative); Leukocyte Esterase Urine Negative (Negative); Nitrate Urine Negative (Negative); Protein Urine Neg (Negative); Urine Appearance Clear (CLEAR); Urine Color Yellow (Yellow); Urobilinogen Urine Norm (Negative); pH Urine 6.5 (5-7)
[2019-05-19 01:18] LABS: Barbiturates Screen Urine Negative (Negative); Benzodiazepines Screen Urine Negative (Negative); Cocaine Screen Urine Negative (Negative); Opiate Screen Urine Negative (Negative); PCP Screen Urine Negative (Negative); THC Screen Urine Negative (Negative)
[2019-05-19 01:36] LABS: Amphetamines Screen Urine Positive (Negative)
[2019-05-19 06:00] VITALS: BP 126/80; PULSE 74; RESP 19; TEMP 36.7; O2SAT 97
[2019-05-19] MEDS: lithium carbonate 300 mg Capsule PO ×2 (08:27→17:33)
[2019-05-19] MEDS: ARIPiprazole 30 mg Tablet 15 MG PO (08:27)
--- NOTE | 2019-05-19 09:48 | P.HP_ITS ---
Providers/Chief Complaint Admitting Physician: Mahendra Sorensen MD Chief Complaint: SUICIDAL IDEATION HPI NPU History of Present Illness Yahir Kirkland is a 43 year old male Chief complaint: History of present illness: Yahir Kirkland Presents for his 8 admission 2 months and second admission in 14 days.As is typical, Yahir does not provides much information though it becomes clear that his main intent and concern is lack of shoulder with rigid cold weather coming. The emergency room note is limited to: MD complaint: suicidal ideation and feels depressed Duration: constant History of same: Yes Relieving factors: none Exacerbating factors: other (homeless, lack of resources) Associated psychiatric symptoms: depression and suicidal ideation Associated symptoms: Reports depression and suicidal ideation Treatments prior to arrival: none If self harm: admits thoughts of self harm and has plan It is also noted that no lithium level was done at the time of admission. He was just in this unit for 4 days commencing on 05/06/2019. He was discharged on a combination of Abilify, lithium, and doxepin. The patient states that he likes his lithium because it helps him sleep. Noncompliance has been a problem in the past. He had been on Abilify and maintain a with his last injection being on April 27. His next scheduled injection would not be for another 9 days. He reported suicidal ideation but could not delineate a plan. Historically, he has utilized this complaint to gain access to the inpatient psychiatric unit for short periods of time. Mental health history: Discharge summary from 04/28/2019:Admission Diagnosis: Depression with suicidal ideation. Other Discharge Diagnoses: Chronic disorganized schizophrenia, mild. Psychosocial impairment. Homelessness. Noncompliance Procedures Performed: Initiation of Abilify maintena. Involvement in milieu. Discharge planning including follow-up for Abilify maintena. Brief History: The patient presents on a voluntary basis for his 6th admission in 12 months. He again vaguely reports suicidal ideation without intent or plan. He indicates he should be on Abilify maintena, suggesting the Aristada protocol, which our pharmacist says we don?t have and would have to be approved by the hospital pharmacy director. He is homeless and it is cold and raining outside. Otherwise, he denies symptoms of depression. His suicidal ideation is passive only. He denies presence of auditory or visual hallucinations. There is no apparent imminent risk to self or others. Hospital Course: The patient is here mainly to get his Abilify maintena, which was administered on the . He is doing well his mood is good and he is not troubled with any auditory hallucinations. He is now competent, per my assessment today, to resume responsibility for life on the outside. Disposition: Patient will be discharged to self-care. He has an apartment and her roommate and his car will be out of impound tomorrow. Condition at Discharge: The patient is improved she has not hallucinating mental status is bright and cheerful thought processes are under aerated and he has not delusional he has sufficient judgment and insight to resume his self-care in a safe manner. New Medications: Aripiprazole Maintena (Abilify Maintena) 400 Mg Suser.vial 400 MG IM every thirty days for 30 Days, #1 VIAL 1 Refill Next injection of Abilify maintena 400 milligrams is due May 28. Discharge summary from his admission on 03/30/2019: Yahir Cancino presented on a voluntary basis for his fifth admission in 12 months. He vaguely reported suicidal ideation without intent or plan. He said that since his last admission here in November, he has not had any medication for the past month. He took the medications for a couple months and then stopped mainly out of financial reasons. 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 He does not give an estimate on how much he has been using. However he was charged with possession 2 weeks ago and has an upcoming court date. This is not supported by a search of public records. Patient states that he is looking for a residential drug treatment. However, the patient also states that one of his primary concerns is that he is homeless and winter is coming. Otherwise he denies symptoms of depression. His suicidal ideation is passive only. He denies presence of auditory or visual hallucinations. He has good hedonic capacity. There is no apparent imminent risk to self or others. Hospital Course: The patient stabilized rapidly. He was tearful when I saw him yesterday but his mood has brightened now that he has the psychosocial support of our discharge planners. He continues to deny any suicidal or homicidal ideation, plan or intent. He says he is ready to leave and he will be safe. Social history:The patient remains homeless. His social history otherwise has not changed since his last admission. Legal history:The past years, he has been arrested for possession of marijuana twice, failing to drive on the correct side of the road once, and once for stealing. Past medical history:Please see the emergency room nursing notes. No significant changes since his admission of 05/06/2019. Mental Status Exam: Appearance: hygiene is fair; no gross neurological deficits., gait is unremarkable; AIMS=0 Speech: Speech is of normal rate and rhythm and easily understood. Thought processes: Thought processes are [place]. Judgment is not adequate for safety. Associations: intact Psychotic processes: There is no indication of guarding or paranoia. There is no attention to the internal stimuli. Auditory and visual hallucinations are denied. Judgment: Insight is fair. Problem solving skills are Poor. Orientation: The patient is oriented to person, place time and situation. Memory: no deficits noted in immediate, intermediate, or remote spheres. Attention: The patient is alert and interpersonally engaged. Language: Verbalizations are coherent. Fund of knowledge: Fund of knowledge is poor. Affect/Mood: Affect is consistent with a Euthymic mood. He verbalized passive suicidal ideation Affective range Constricted Psychosis: perception unimpaired except through cognitive distortion and cognitive limitations; reality testing intact. Diagnoses:Adjustment disorder with disturbance of mood and conduct Assessment:A lithium level be acquired to see if he has been at all compliant with medication is noted that he has already been given lithium once this morning. The rest of his medications will be continued and will see how his suicidal ideations evolve based on changing his psychosocial circumstances. Treatment plan: Due to the psychiatric conditions and treatment listed in the Assessment and Da n - the patient requires continued hospitalization. Will provide a safe and therapeutic environment for patient.. Will continue inpatient treatment to allow for medication adjustment and monitoring. Will continue q15 min safety checks. Hospital day #1:Will continue current medications and monitor for medication side effects. A lithium level be acquired to see if he has been at all compliant with medication is noted that he has already been given lithium once this morning. The rest of his medications will be continued and will see how his suicidal ideations evolve based on changing his psychosocial circumstances. Monitor patient's mood, sleep, appetite, and behavior closely. Encourage patient to participate in individual and group therapeutic sessions on the alvarez. Estimated length of stay 5 days The expected benefits and potential side effects of patient's psychiatric medications were discussed with the patient. The patient understands and consents to treatment.CRITERIA FOR DISCHARGE: stable on medications and no longer an im Meds NPU Allergies Allergy/AdvReac Type Severity Reaction Status Date / Time No Known Allergies Allergy Verified 05/15/19 18:12 PFSH NPU PFSH: Statuses (acute, chronic, etc) shown below reflect problem list status as previously entered and may not be historically accurate Medical History Psychotic disorder (Acute) Social History Smoking and tobacco status: current every day smoker Vitals/I&O/Wt Last Vital Signs Temp 98.1 F 05/19/19 06:00 Pulse 74 05/19/19 06:00 Resp 19 H 05/19/19 06:00 BP 126/80 05/19/19 06:00 Pulse Ox 97 05/19/19 06:00 Weight last 48 hrs Weight 104.326 kg Data NPU : 05/18/19 19:38 05/18/19 19:38 Involuntary Hold Information 96 Hour Hold: 96 Hour Involuntary Admission: No Attestations NPU Medical Necessity Statement*: Patient will remain in the hospital another 2-3 nights to complete this assessment and establish appropriate follow-up treatment plan. Coding Level of Care Code Acute Plastics Engineering Teacher for Sriram Davalos
[2019-05-19] MEDS: acetaminophen 325 mg Tablet 650 MG PO ×2 (11:16→21:36)
[2019-05-19 14:00] VITALS: BP 133/83; PULSE 83; RESP 18; TEMP 36.5; O2SAT 95
[2019-05-19 14:22] LABS: Lithium 0.5 mmol/L (0.6-1.2)
[2019-05-19 20:38] VITALS: BP 145/92; PULSE 72; RESP 18; TEMP 36.6; O2SAT 97
[2019-05-19] MEDS: doxepin 10 mg Capsule PO (21:35)
[2019-05-20 06:00] VITALS: BP 145/94; PULSE 73; RESP 20; TEMP 36.7; O2SAT 97
[2019-05-20] MEDS: ARIPiprazole 30 mg Tablet 15 MG PO (08:32)
[2019-05-20] MEDS: lithium carbonate 300 mg Capsule PO ×2 (08:33→17:58)
[2019-05-20] MEDS: gabapentin 300 mg Capsule PO (09:50)
--- NOTE | 2019-05-20 11:33 | P.PN_ITS ---
Mental Status Exam MSE Comments: Mental Status Exam: Appearance: hygiene is fair; no gross neurological deficits., gait is unremarkable; AIMS=0 Speech: Speech is of normal rate and rhythm and easily understood. Thought processes: Thought processes are [place]. Judgment is not adequate for safety. Associations: intact Psychotic processes: There is no indication of guarding or paranoia. There is no attention to the internal stimuli. Auditory and visual hallucinations are denied. Judgment: Insight is fair. Problem solving skills are Poor. Orientation: The patient is oriented to person, place time and situation. Memory: no deficits noted in immediate, intermediate, or remote spheres. Attention: The patient is alert and interpersonally engaged. Language: Verbalizations are coherent. Fund of knowledge: Fund of knowledge is poor. Affect/Mood: Affect is consistent with a Euthymic mood. He verbalized passive suicidal ideation Affective range Constricted Psychosis: perception unimpaired except through cognitive distortion and cognitive limitations; reality testing intact. Vitals/I&O/Wt Last Vital Signs Temp 98.1 F 05/20/19 06:00 Pulse 73 05/20/19 06:00 Resp 20 H 05/20/19 06:00 BP 145/94 05/20/19 06:00 Pulse Ox 97 05/20/19 06:00 Weight last 48 hrs Weight 108.953 kg Weight 104.326 kg Data NPU : 05/18/19 19:38 05/18/19 19:38 A&P Additional A&P Information Diagnoses:Adjustment disorder with disturbance of mood and conduct Assessment:A lithium level be acquired to see if he has been at all compliant with medication is noted that he has already been given lithium once this morning. The rest of his medications will be continued and will see how his suicidal ideations evolve based on changing his psychosocial circumstances. Treatment plan: Due to the psychiatric conditions and treatment listed in the Assessment and Plan - the patient requires continued hospitalization. Will provide a safe and therapeutic environment for patient.. Will continue inpatient treatment to allow for medication adjustment and monitoring. Will continue q15 min safety checks. Hospital day #1:Will continue current medications and monitor for medication side effects. A lithium level be acquired to see if he has been at all compliant with medication is noted that he has already been given lithium once this mornin g. The rest of his medications will be continued and will see how his suicidal ideations evolve based on changing his psychosocial circumstances. Hospital day #2: Patient complains about back pain and requests gabapentin. His lithium level on admission was = 0.5. This does indicate that there was some compliance with his discharge medications from his last admission.Plan: Patient has a history of vague somatic complaints. His presentation is consistent with those in the past and needing a place to stay during cold weather until his homelessness can be resolved.Gabapentin 150 mg 3 times a day. Monitor patient's mood, sleep, appetite, and behavior closely. Encourage patient to participate in individual and group therapeutic sessions on the alvarez. Estimated length of stay 5 days The expected benefits and potential side effects of patient's psychiatric medications were discussed with the patient. The patient understands and consents to treatment.CRITERIA FOR DISCHARGE: stable on medications and no longer an imminent risk To self or others Involuntary Hold Information 96 Hour Hold: 96 Hour Involuntary Admission: No Attestations NPU Medical Necessity Statement*: Patient will remain in the hospital tonight until we can verify compliance with medications and verify that he is medically stable. Coding Level of Care Code Acute Hotbed Operator for Sriram Davalos
[2019-05-20 14:00] VITALS: BP 135/85; PULSE 79; RESP 18; TEMP 36.9; O2SAT 97
[2019-05-20] MEDS: gabapentin 100 mg Capsule PO ×2 (14:55→20:39)
[2019-05-20 19:58] VITALS: BP 139/91; PULSE 70; RESP 18; TEMP 36.7; O2SAT 96
[2019-05-20] MEDS: doxepin 10 mg Capsule PO (20:39)
[2019-05-20 22:00] VITALS: BP 139/91; RESP 18; TEMP 36.7; O2SAT 96
[2019-05-21 06:00] VITALS: BP 138/93; PULSE 63; RESP 18; TEMP 36.8; O2SAT 96
[2019-05-21] MEDS: gabapentin 100 mg Capsule PO ×2 (09:18→14:57)
[2019-05-21] MEDS: lithium carbonate 300 mg Capsule PO (09:18)
[2019-05-21] MEDS: ARIPiprazole 30 mg Tablet 15 MG PO (09:18)
--- NOTE | 2019-05-21 14:35 | PM.NDC ---
Reason for Visit Reason for Visit: Reason For Visit: SUICIDAL IDEATION Brief History: [facility] [address] [place] [address] History & Physical Report Signed Patient: Yahir Kirkland WMR#: [id number] : 1975Acct#:[id number] Age/Sex: 43 / MADM Date: 05/18/19 [facility]: Mahendra Sorensen MD Report Number: [id number] Providers/Chief Complaint Admitting Physician: Mahendra Sorensen MD Chief Complaint: SUICIDAL IDEATION HPI NPU History of Present Illness Yahir Kirkland is a 43 year old male Chief complaint: History of present illness: Yahir Kirkland Presents for his 8 admission 2 months and second admission in 14 days.As is typical, Yahir does not provides much information though it becomes clear that his main intent and concern is lack of shoulder with rigid cold weather coming. The emergency room note is limited to: MD complaint: suicidal ideation and feels depressed Duration: constant History of same: Yes Relieving factors: none Exacerbating factors: other (homeless, lack of resources) Associated psychiatric symptoms: depression and suicidal ideation Associated symptoms: Reports depression and suicidal ideation Treatments prior to arrival: none If self harm: admits thoughts of self harm and has plan It is also noted that no lithium level was done at the time of admission. He was just in this unit for 4 days commencing on 05/06/2019. He was discharged on a combination of Abilify, lithium, and doxepin. The patient states that he likes his lithium because it helps him sleep. Noncompliance has been a problem in the past. He had been on Abilify and maintain a with his last injection being on April 27. His next scheduled injection would not be for another 9 days. He reported suicidal ideation but could not delineate a plan. Historically, he has utilized this complaint to gain access to the inpatient psychiatric unit for short periods of time. Hospital Course Hospital Course Hospital day #1:Will continue current medications and monitor for medication side effects. A lithium level be acquired to see if he has been at all compliant with medication is noted that he has already been given lithium once this morning. The rest of his medications will be continued and will see how his suicidal ideations evolve based on changing his psychosocial circumstances. Hospital day #2: Patient complains about back pain and requests gabapentin. His lithium level on admission was = 0.5. This does indicate that there was some compliance with his discharge medications from his last admission.Plan: Patient has a history of vague somatic complaints. His presentation is consistent with those in the past and needing a place to stay during cold weather until his homelessness can be resolved.Gabapentin 150 mg 3 times a day. Involuntary Hold Information 96 Hour Hold: 96 Hour Involuntary Admission: No Mental Status Exam MSE Comments: Discharge Mental Status Exam: Appearance: hygiene is good; no gross neurological deficits., gait is unremarkable; AIMS=0 Speech: Speech is of normal rate and rhythm and easily understood. Thought processes: Thought processes are abstract. Judgment is adequate for safety. Associations: intact Psychotic processes: There is no indication of guarding or paranoia. There is no attention to the internal stimuli. Auditory and visual hallucinations are denied. Judgment: Insight is fair. Problem solving skills are adequate for safety. Orientation: The patient is oriented to person, place time and situation. Memory: no deficits noted in immediate, intermediate, or remote spheres. Attention: The patient is alert and interpersonally engaged. Language: Verbalizations are coherent. Fund of knowledge: Fund of knowledge is adequate. Affect/Mood: Affect is consistent with a euthymic mood. denied suicidal ideation Affective range is appropriate. Psychosis: perception unimpaired except through cognitive distortion; reality testing intact. Discharge Data Vitals: Last Vital Signs Temp 98.2 F 05/21/19 06:00 Pulse 63 05/21/19 06:00 Resp 18 05/21/19 06:00 BP 138/93 05/21/19 06:00 Pulse Ox 96 05/21/19 06:00 Discharge Plan Discharge Patient Disposition: Home, Self-Care Condition: Stable Prescriptions: New trazodone 50 mg Tablet 50 mg PO BEDTIME PRN (Reason: Sleep) Qty: 15 RF: 1 lithium carbonate 300 mg Capsule 300 mg PO BID Qty: 60 RF: 2 gabapentin 100 mg Capsule 100 mg PO TID Qty: 90 RF: 0 aripiprazole 30 mg Tablet 15 mg PO DAILY Qty: 30 RF: 2 Continued naproxen [EC-Naprosyn] 500 mg tablet,delayed release (DR/EC) 500 mg PO BID PRN (Reason: pain) Qty: 20 RF: 0 Discontinued clindamycin HCl 150 mg capsule 300 mg PO QID 7 Days Qty: 56 RF: 0 doxepin 10 mg Capsule 10 mg PO BEDTIME 30 Days Qty: 30 RF: 1 lithium carbonate 300 mg Capsule 300 mg PO BID 30 Days Qty: 60 RF: 0 aripiprazole 30 mg Tablet 15 mg PO DAILY 14 Days Qty: 14 RF: 0 Discharge Orders: Discharge Order (Routine); Ordered 05/21/19 Ordered By: Mahendra Sorensen Referrals: Dylan Meehan MD [Physician] - Discharge Diet: Low Cholesterol Discharge Activity: Increase activity as tolerated Activity Restrictions/Additional [facility]ructions[facility] office: [phone] If you are interested in R[facility] placement at [facility] contact Mikayla at [phone] to discuss. [facility] Follow up as a walk in at [facility], walk in hours are from 7:30AM-2:00PM, first come, first seen. Once you do this assessment you will be referred for appropriate services. [place] [id number] [place] [address] Discharge Attestations NPU Time Spent in Discharge Care*: greater than 30 min Coding Level of Care Code Acute Diabetic Educator for Sriram Davalos
[2019-05-21 14:52] VITALS: BP 138/93; PULSE 63; RESP 18; TEMP 36.8; O2SAT 96
== END 2019-05-21 15:06 | disposition home or self-care (01) | DRG 881 ==
LOC: ER 22:01 → NP 22:38
PROVIDERS: Admitting Provider Psychiatry & Neurology Psychiatry; Emergency Provider Emergency Medicine; Visit Provider Psychiatry & Neurology Psychiatry
DX: F43.21 Adjustment disorder with depressed mood (principal); R45.851 Suicidal ideations; Z59.0 Homelessness; F20.9 Schizophrenia, unspecified; Z91.19 Patient's noncompliance with other medical treatment and regimen
CPT/HCPCS: 12345; 80053; 80178; 80306; 80307; 81003; 84443; 85025; 93005; 99284

== ENCOUNTER 2019-05-18 18:01 | Emergency (ER) | payer MEDICAID, SELFPAY | END 2019-05-18 18:02 | disposition left against medical advice (07) | LOC: ER 06-15 12:38 | PROVIDERS: Emergency Provider Emergency Medicine; PCP Urology | DX: N50.812 Left testicular pain (principal); J06.9 Acute upper respiratory infection, unspecified; F43.25 Adjustment disorder with mixed disturbance of emotions and conduct; Z76.5 Malingerer [conscious simulation]; Z53.21 Procedure and treatment not carried out due to patient leaving prior to being seen by health care provider | CPT/HCPCS: 99281 ==

== ENCOUNTER 2019-05-18 18:01 | Emergency (ER) | payer MEDICAID, SELFPAY | END 2019-05-19 00:19 | disposition admitted as inpatient to this hospital (09) | LOC: ER 07-25 13:31 | PROVIDERS: Emergency Provider Emergency Medicine; PCP Nurse Practitioner | DX: R07.9 Chest pain, unspecified (principal); S20.219A Contusion of unspecified front wall of thorax, initial encounter; X58.XXXA Exposure to other specified factors, initial encounter; F17.210 Nicotine dependence, cigarettes, uncomplicated; Z59.0 Homelessness; F25.0 Schizoaffective disorder, bipolar type; F43.25 Adjustment disorder with mixed disturbance of emotions and conduct; Z76.5 Malingerer [conscious simulation]; Z95.1 Presence of aortocoronary bypass graft | CPT/HCPCS: 80053; 80178; 80306; 80307; 81003; 84443; 85025; 93005; 99284; 99285 ==

== ENCOUNTER 2019-05-21 22:12 | Emergency (ER) | payer MEDICAID, SELFPAY ==
[2019-05-21 22:36] VITALS: BP 193/99; PULSE 77; RESP 18; TEMP 36.9; O2SAT 96; BMI 29.8
[2019-05-21 22:42] VITALS: BP 133/79; PULSE 76; RESP 16; O2SAT 97
[2019-05-21 23:00] LABS: Basophils % 0.1 %; Eosinophils # 0.1 10^3/uL (0.0-0.8); Eosinophils % 0.6 %; Hematocrit 42.3 % (42.0-52.0); Hemoglobin 13.9 g/dL (11.7-16.6); Lymphocytes # 1.9 10^3/uL (0.8-4.8); Lymphocytes % 23.5 %; Mean Corpuscular HGB Conc 32.9 g/dL (30.0-36.0); Mean Corpuscular Hemoglobin 27.2 pg (28.0-34.0); Mean Corpuscular Volume 82.8 fL (80-94); Mean Platelet Volume 10.2 fL (7.4-10.4); Monocytes # 0.5 10^3/uL (0.2-0.9); Neutrophils # 5.6 10^3/uL (1.8-7.7); Neutrophils % 69.6 %; Nucleated Red Blood Cells % 0 %; Platelet Count 197 10^3/cmm (130-400); Red Blood Count 5.11 10^6/uL (4.1-5.3); Red Cell Distribution Width 12.4 % (12.1-15.1)
--- NOTE | 2019-05-21 23:14 | ED_ITS ---
Entered by Sheela Gar, acting as scribe for Sulema Perez Tobin May 21, 2019 22:12 HPI - Abdominal Pain General: Chief Complaint: Abdominal Pain Stated Complaint: Kidney pain Time Seen by Provider: 05/21/19 23:13 Source: patient Mode of arrival: ambulatory History of Present Illness: HPI narrative: 43 y/o male presents to the ED with complaint of left flank pain. Pt states this has been going on for about a week. He has a hx of kidney stones and this pain feels similar to previous episodes. MD elicited complaint: flank pain Pertinent past history: kidney stones Onset (ago): week(s) (1) Pain Consistency: constant Severity: mild Exacerbating factors: movement Associated Symptoms: Denies chills, coffee ground emesis, constipation, GI cramping, diarrhea, dysuria, fever(s), hematochezia, hematuria, hematemesis, melena, nausea, syncope and vomiting Review of Systems General: Reports: other (negative unless marked) Const: Denies: fever, chills, body aches, fatigue, malaise or diaphoresis Eyes: Denies: change in vision or blurry vision ENMT: Denies: throat pain, painful swallowing, hoarseness, ear pain, ear discharge, Change in hearing or nasal discharge Card: Denies: chest pain, palpitations, irregular heart rhythm, syncope, pre- syncope, shortness of breath on exertion or shortness of breath when lying down Resp: Denies: shortness of breath, productive cough, non-productive cough, wheezing, coughing up blood or chest congestion GI: Denies: nausea, vomiting, vomiting blood, coffee grounds in vomit, diarrhea, constipation, cramping, blood in stool or black tarry stool : Denies: painful urination or blood in urine Musc: Denies: neck pain, back pain, extremity pain, extremity swelling, joint pain, joint swelling, joint warmth or joint stiffness Skin/Breast: Denies: rash, skin tenderness or yellow skin Neuro: Denies: headache, numbness in extremities, weakness in extremities, changes in sensation, lack of coordination, difficulty walking, dizziness, vertigo or confusion Endo: Denies: excessive thirst, tired all the time, cold intolerance, excess nishi sweating, flushing or hot flashes Bull/Lymph: Denies: easy bruising, easy bleeding, petechiae or enlarged lymph nodes All/Imm: Denies: hives, throat swelling, tongue swelling, facial swelling or acute wheezing PFSH ED PFSH: Statuses (acute, chronic, etc) shown below reflect problem list status as previously entered and may not be historically accurate Medical History Psychotic disorder (Acute) Social History Smoking and tobacco status: current every day smoker Physical Exam Const: COMMON NORMALS: no apparent distress, oriented x3, no limitations, healthy appearing and well nourished EXAM LIMITATIONS: no altered mental status GENERAL APPEARANCE: cooperative, well kempt and well developed ORIENTATION/CONSCIOUSNESS: Yes awake HENMT: COMMON NORMALS: normocephalic, head/scalp atraumatic, hearing grossly normal bilaterally, external ears normal, EAC's normal, external nose normal and moist oral mucous membranes HEAD & SCALP: normal to inspection, normocephalic and atraumatic FACE & SINUS: normal facial exam and face symmetric NOSE: external nose normal and nares normal EXTERNAL EAR: Yes external ears normal EXTERNAL AUDITORY CANAL: EAC's normal MOUTH: oral and palatal mucosa normal and tongue normal Eye: COMMON NORMALS: PERRL, EOMs intact bilaterally, conjunctivae normal and no scleral icterus GENERAL EYE: normal appearance of both eyes and normal light reflex CONJUNCTIVA: Yes conjunctivae normal SCLERA: sclerae normal CORNEA: Yes corneas normal PUPIL: Yes PERRL DIRECT OPHTHALMOSCOPY: Yes normal light reflex Neck/C-Spine: COMMON NORMALS: full ROM, no lymphadenopathy, supple, no meningeal signs and no JVD GENERAL: Yes normal visual inspection and Yes trachea midline CERVICAL SPINE: Yes cervical ROM normal Chest: COMMONS NORMALS: inspection of chest normal and palpation of chest normal Resp: COMMON NORMALS: normal respiratory effort, no retractions, no use of accessory muscles and clear to auscultation bilaterally EFFORT & INSPECTION: Yes able to speak in complete sentences AUSCULTATION: clear to auscultation bilaterally Cardio: COMMON NORMALS: no JVD, regular rate, regular rhythm, S1 normal heart sound, S2 normal heart sound, no gallops, no clicks, no murmurs and no rub JUGULAR VENOUS DISTENTION: no JVD RATE: regular rate RHYTHM: regular rhythm HEART SOUNDS: S1 normal and S2 normal GI: COMMON NORMALS: soft to palpation, non-tender, no hepatosplenomegaly and no masses INSPECTION: Yes normal to inspection PALPATION: Yes soft and Yes no hepatosplenomegaly : COMMON NORMALS: Yes no CVA tenderness BLADDER/KIDNEY EXAM: Yes no CVA tenderness Back/Pelvis: COMMON NORMALS: no CVA tenderness, thoracic and lumbar spine normal to inspection, no thoracic nor lumbar tenderness and thoraco-lumbar ROM normal Extremity: COMMON NORMALS: normal to inspection, full ROM, normal capillary refill, no joint enlargement, no clubbing, cyanosis or edema and no calf tenderness Neuro: COMMON NORMALS: oriented x3, CN's II-XII intact bilaterally, moves all extremities, no focal motor deficits and no sensory deficits noted MENINGEAL SIGNS: Yes no meningeal signs Psych: COMMON NORMALS: thought process normal, cooperative, affect normal, speech normal and activity/motor behavior normal APPEARANCE: Yes well kempt SPEECH: Yes normal speech THOUGHT PROCESS: normal thought process Skin: COMMON NORMALS: no rashes or lesions noted, skin turgor normal, no jaundice, no petechiae and no mottling GENERAL SKIN EXAM: no rashes or lesions noted and turgor normal Course Vital Signs: Vital signs: Vital Signs Temperature 98.4 F 05/22/19 00:52 Pulse Rate 75 05/22/19 00:52 Respiratory Rate 14 05/22/19 00:52 Blood Pressure 153/65 05/22/19 00:52 Pulse Oximetry 95 05/21/19 23:42 MDM - Abdominal Pain MDM Narrative: Medical decision making narrative: Yahir comes in complaining of left flank pain but there is no sign of stone on the left side. He has no right upper quadrant pain. His labs are unremarkable. He admits to being homeless and needing some place to stay as it is cold outside. He will be given something to eat and drink and allowed to be discharged. His CT scan does not show anything remarkable except for possible fluid around his gallbladder but he has no right upper quadrant pain and has no real complaints. His left flank pain is thought to be a lie just to come into the hospital stable and place warm. He does understand though he is welcome to return at any time should his symptoms return or he change his mind. Differential Diagnosis: Differential diagnosis abdominal pain: Likely abdominal pain, calculus of kidney, constipation, diverticulitis, gastroenteritis, pancreatitis and small bowel obstruction Lab Data: Attestation: I reviewed the patient's lab results. Labs: Lab Results 05/21/19 05/21/19 05/21/19 Range/Units 22:52 22:52 23:20 WBC 8.0 (4.0-10.0) 10^3/ uL RBC 5.11 (4.1-5.3) 10^6/u L Hgb 13.9 (11.7-16.6) g/dL Hct 42.3 (42.0-52.0) % MCV 82.8 (80-94) fL MCH 27.2 L (28.0-34.0) pg MCHC 32.9 (30.0-36.0) g/dL RDW 12.4 (12.1-15.1) % Plt Count 197 (130-400) 10^3/c mm MPV 10.2 (7.4-10.4) fL Neut % (Auto) 69.6 % Lymph % (Auto) 23.5 % Clarke % (Auto) 6.0 % Eos % (Auto) 0.6 % Baso % (Auto) 0.1 % Neut # (Auto) 5.6 (1.8-7.7) 10^3/u L Lymph # (Auto) 1.9 (0.8-4.8) 10^3/u L Clarke # (Auto) 0.5 (0.2-0.9) 10^3/u L Eos # (Auto) 0.1 (0.0-0.8) 10^3/u L Baso # (Auto) 0.0 (0.0-0.1) 10^3/u L Nucleated RBC % (a uto) 0 % Nucleated RBCs # 0.0 /100WBC Sodium 142 (136-145) mmol/L Potassium 3.8 (3.5-5.1) mmol/L Chloride 101 (98-107) mmol/L Carbon Dioxide 28 (22-29) mmol/L Anion Gap 16.8 (5-19) BUN 11 (6-20) mg/dL Creatinine 0.7 (0.7-1.2) mg/dL GFR Calculation 123.1 (90-130) mL/min Glucose 154 H (74-109) mg/dL Calcium 9.9 (8.6-10.0) mg/Dl Total Bilirubin 0.2 (0.15-1.2) mg/dL AST 31 (0-40) U/L ALT 50 H (0-41) U/L Alkaline Phosphata se 82 (40-130) IU/L Total Protein 7.3 (6.6-8.7) g/dL Albumin 3.9 (3.5-5.2) g/dL Globulin 3.4 (1.3-4.6) g/dL Urine Color Yellow (Yellow) Urine Appearance Clear (CLEAR) Urine pH 6 (5-7) Ur Specific Gravit y 1.020 (1.005-1.030) Urine Protein Neg (Negative) Urine Glucose (UA) Norm (Normal) Urine Ketones Negative (Negative) Urine Occult Blood Neg (Negative) Urine Nitrate Negative (Negative) Urine Bilirubin Neg (NEGATIVE) Urine Urobilinogen Norm (Negative) mg/dL Ur Leukocyte Lisa ase Negative (Negative) Urine RBC None (0-2) /hpf Urine WBC None (0-5) /hpf Ur Squamous Epith Cells None (0-5) Urine Bacteria 2+ H (NONE) Imaging Data ^: CT Abd/Pel: Radiologist's impression: [place] [address] CT Scan Report Signed Patient: Yahir Kirkland Unit #: [id number] : 1975 Age/Sex: 43 / M ADM Date: 05/21/19 Loc: ER Room/Bed: Attending Dr: Ordering Provider/Ordering MD: Sulema Perez DO Date of Service: 05/21/19 Procedure(s): CT kidney stone 30418 Accession Number(s): [id number] Report Number: [id number] PROCEDURE INFORMATION: Exam: CT Abdomen And Pelvis Without Contrast Exam date and time: 05/21/2019 11:33 PM Age: 43 years old Clinical indication: Abdominal pain; Flank; Right; Additional info: Flank/abdominal pain TECHNIQUE: Imaging protocol: Computed tomography of the abdomen and pelvis without contrast. Total DLP: 1906.26 mGy-cm Radiation optimization: All CT scans at this facility use at least one of these dose optimization techniques: automated exposure control; mA and/or kV adjustment per patient size (includes targeted exams where dose is matched to clinical indication); or iterative reconstruction. COMPARISON: CT Abdomen/Pelvis Renal [id number] 05/17/2018 9:35 PM FINDINGS: Lungs: The lung bases are clear. Liver: Unremarkable. Gallbladder and bile ducts: The gallbladder is contracted. At least 1 small calcified gallstone suspected within the gallbladder. Ultrasound could be more sensitive/specific for detecting gallstones, if clinically needed. Possible mild pericholecystic edema/inflammation, slightly less prominent than on the prior exam. Please correlate clinically for possibility of cholecystitis. No biliary tree dilation. Pancreas: Unremarkable. Spleen: Unremarkable. Adrenals: Unremarkable. Kidneys and ureters: There are several intrarenal calculi bilaterally. No significant hydronephrosis or hydroureter involving either kidney. No visible ureteral calculus. Mild to moderate perinephric stranding bilaterally, similar to prior exam. This is a nonspecific appearance and could well be chronic. Possibility of pyelonephritis is not entirely excluded, please correlate clinically. Stomach and bowel: There are no CT findings to strongly suggest diverticulitis. Appendix: The appendix is visualized and appears normal. Intraperitoneal space: No free air, ascites, or bowel distention. Vasculature: No evidence for abdominal aortic aneurysm. Lymph nodes: No retroperitoneal adenopathy. Bladder: Mild to moderate diffuse urinary bladder wall thickening. While nonspecific, this could indicate evidence for cystitis. Please correlate clinically. No visible calculus in the urinary bladder. Reproductive: Essentially unremarkable for age. Bones/joints: No significant acute finding. Soft tissues: Very small left inguinal hernia, containing only fat. CT/CT kidney stone [id number] IMPRESSION: 1. Bilateral intrarenal calculi. No significant hydronephrosis or visible ureteral calculus. 2. Mild to moderate perinephric stranding bilaterally, see above discussion. 3. Mild to moderate urinary bladder wall thickening, possibly secondary to cystitis. 4. Probable cholelithiasis, and possible pericholecystic edema, see additional details above. 5. Normal appendix. 6. Other findings discussed above. Radiation Dose CTDIVOL = (mGy): DLP = 1906.26 (mGy-cm) Dictated By: Chad Salmeron MD Signed By: Chad Salmeron MD Signed Date/Time: 05/22/19 0011 DD/ 0010 Discharge Plan Discharge Patient Disposition: Home, Self-Care Clinical Impression: Acute left flank pain Condition: Stable Prescriptions: No Action naproxen [EC-Naprosyn] 500 mg tablet,delayed release (DR/EC) 500 mg PO BID PRN (Reason: pain) Qty: 20 RF: 0 trazodone 50 mg Tablet 50 mg PO BEDTIME PRN (Reason: Sleep) Qty: 15 RF: 1 lithium carbonate 300 mg Capsule 300 mg PO BID Qty: 60 RF: 2 gabapentin 100 mg Capsule 100 mg PO TID Qty: 90 RF: 0 aripiprazole 30 mg Tablet 15 mg PO DAILY Qty: 30 RF: 2 Discharge Orders: Discharge Order (Routine); Ordered 05/22/19 Ordered By: Sulema Perez Referrals: Kyree Naqvi MD [Physician] - Patient Instructions: Cholecystitis (ED), Abdominal Pain (ED) Activity Restrictions/Additional Instructions: Please return to the ER immediately for any of the signs or symptoms listed on your discharge instruction sheets, worsening/changing of your symptoms, you are not getting better as quickly as expected, or for ANY other cause or concerns. Discharge Date/Time: 05/22/19 01:03 Coding Level of Care Code ED Manager Infrastructure for Chg Fwd Exam Problem Focused The documentation recorded by the Cong [employer] Ashley, accurately reflects the service I personally performed and the decisions made by Chris bui Eli N May 21, 2019 22:12
[2019-05-21 23:15] LABS: Alanine Aminotransferase 50 U/L (0-41); Albumin Level 3.9 g/dL (3.5-5.2); Alkaline Phosphatase 82 IU/L (40-130); Anion Gap 16.8 (5-19); Aspartate Amino Transferase 31 U/L (0-40); Blood Urea Nitrogen 11 mg/dL (6-20); Calcium 9.9 mg/Dl (8.6-10.0); Carbon Dioxide 28 mmol/L (22-29); Chloride 101 mmol/L (98-107); Globulin 3.4 g/dL (1.3-4.6); Glomerular Filtration Rate 123.1 mL/min (90-130); Glucose 154 mg/dL (74-109); Potassium 3.8 mmol/L (3.5-5.1); Sodium 142 mmol/L (136-145); Total Bilirubin 0.2 mg/dL (0.15-1.2); Total Protein 7.3 g/dL (6.6-8.7)
--- NOTE | 2019-05-21 23:19 | PC.NURSE ---
Introduced self to patient and initiated vital signs. Pt is A&O x 4 and agreeable. Pt states that the reason for the ER visit today is due to kidney pain. Reassured patient of needs and will continue to monitor. Awaiting provider at bedside.
[2019-05-21 23:42] VITALS: BP 150/91; PULSE 75; RESP 16; O2SAT 95
[2019-05-22 00:19] LABS: Bilirubin Urine Neg (NEGATIVE); Blood Urine Neg (Negative); Glucose Urine UA Norm (Normal); Ketones Urine Negative (Negative); Leukocyte Esterase Urine Negative (Negative); Nitrate Urine Negative (Negative); Protein Urine Neg (Negative); Urine Appearance Clear (CLEAR); Urine Color Yellow (Yellow); Urobilinogen Urine Norm (Negative); pH Urine 6 (5-7)
[2019-05-22 00:21] LABS: Bacteria Urine 2+
[2019-05-22 00:52] VITALS: BP 153/65; PULSE 75; RESP 14; TEMP 36.9
--- NOTE | 2019-05-22 10:33 | DCPLANNER ---
manager dialysis had message to schedule a follow up appointment for patient with Dr. Naqvi. manager dialysis called the office of Dr. Naqvi, spoke with Talia, gave clinic patients information. manager dialysis was told that patients information would be printed and given to Bernie for review. Clinic will call patient with appointment information. manager dialysis will call for appointment information.
--- NOTE | 2019-05-24 13:54 | DCPLANNER ---
A follow up appointment is scheduled for May at 3:[address] Naqvi. Clinic will contact patient with appointment information.
--- NOTE | 2019-05-31 14:37 | DCPLANNER ---
Appointment scheduled for 05.31.19 was cancelled.
== END 2019-05-22 01:03 | disposition home or self-care (01) ==
PROVIDERS: Emergency Provider Emergency Medicine
DX: N20.0 Calculus of kidney (principal)
CPT/HCPCS: 36415; 74176; 80053; 81001; 85025; 99282

== ENCOUNTER 2019-05-28 17:51 | Emergency (ER) | payer MEDICAID, SELFPAY ==
[2019-05-28 18:07] VITALS: BP 126/94; PULSE 88; RESP 20; TEMP 36.4; O2SAT 97; BMI 30.7
[2019-05-28 20:58] LABS: Bilirubin Urine Neg (NEGATIVE); Blood Urine Neg (Negative); Glucose Urine UA Norm (Normal); Ketones Urine Negative (Negative); Leukocyte Esterase Urine Negative (Negative); Nitrate Urine Negative (Negative); Protein Urine Neg (Negative); Specific Gravity, Urine 1.005 (1.005-1.030); Urine Appearance Clear (CLEAR); Urine Color Yellow (Yellow); Urobilinogen Urine Norm (Negative); pH Urine 7 (5-7)
[2019-05-28] MEDS: ciprofloxacin 500 mg Tablet PO (21:20)
[2019-05-28 21:21] VITALS: BP 130/84; PULSE 70; RESP 16; O2SAT 96
--- NOTE | 2019-05-29 14:59 | DCPLANNER ---
corporate services manager had message to schedule a follow up appointment for patient with Dr. Naqvi. corporate services manager called the office of Dr. Naqvi. corporate services manager spoke with Talia, gave clinic patients information. corporate services manager was told that patients information would be printed and given to Bernie for review. Clinic will call patient with appointment information. corporate services manager will call for appointment information.
--- NOTE | 2019-05-30 13:56 | DCPLANNER ---
Patient has a follow up appointment scheduled for 05.31.[address] Naqvi.
--- NOTE | 2019-06-17 02:24 | ED_ITS ---
HPI - Male Genitourinary General: Chief complaint: Urogenital-Male Stated complaint: flank pain, strong smelling urine Time Seen by Provider: 05/28/19 21:03 History of Present Illness: HPI Narrative: Flank pain right side has more of an urgency to go to the bathroom more often Onset (ago): hour(s) Duration: improved and now resolved Associated symptoms: Reports no associated symptoms; Deny nausea or vomiting Review of Systems Const: Denies: fever, chills or body aches Eyes: Denies: change in vision or blurry vision ENMT: Denies: throat pain or nasal congestion Card: Denies: chest pain or shortness of breath on exertion Resp: Denies: shortness of breath, productive cough or non-productive cough GI: Denies: abdominal pain, nausea or vomiting : Reports: urinary urgency; Denies: difficulty urinating Musc: Denies: extremity pain Skin/Breast: Denies: rash Neuro: Denies: headache Psych: Denies: anxiety or depression Bull/Lymph: Denies: easy bruising PFS ED PFSH: Medical History (Updated 06/16/19 @ 00:00 by ) Adjustment disorder with mixed disturbance of emotions and conduct Psychotic disorder Social History (Updated 06/05/19 @ 14:02 by An Serrato LPN) Smoking and tobacco status: current every day smoker cigarettes Packs smoked per day: 1 Years cigarettes smoked: 1 Quit status (tobacco): not considering quitting Second hand smoke exposure: No Physical Exam Const: COMMON NORMALS: no apparent distress, average body habitus and oriented x3 HENMT: COMMON NORMALS: normocephalic HEAD & SCALP: normal to inspection and normocephalic FACE & SINUS: normal facial exam Eye: COMMON NORMALS: conjunctivae normal GENERAL EYE: normal appearance of both eyes CONJUNCTIVA: Yes conjunctivae normal Neck/C-Spine: COMMON NORMALS: no JVD Chest: COMMONS NORMALS: inspection of chest normal Resp: COMMON NORMALS: normal respiratory effort and clear to auscultation bilaterally AUSCULTATION: clear to auscultation bilaterally Cardio: COMMON NORMALS: no JVD, regular rate and regular rhythm RATE: regular rate RHYTHM: regular rhythm GI: COMMON NORMALS: normal to inspection, nondistended, normoactive bowel sounds Extremity: COMMON NORMALS: normal to inspection and full ROM Neuro: COMMON NORMALS: oriented x3 Course Vital Signs: Vital signs: Vital Signs Temperature 97.6 F 05/28/19 18:07 Pulse Rate 70 05/28/19 21:21 Respiratory Rate 16 05/28/19 21:21 Blood Pressure 130/84 05/28/19 21:21 Pulse Oximetry 96 05/28/19 21:21 MDM - Male Lab Data: Labs: Lab Results 05/28/19 Range/Units 18:34 Urine Color Yellow (Yellow) Urine Appearance Clear (CLEAR) Urine pH 7 (5-7) Ur Specific Gravit y 1.005 (1.005-1.030) Urine Protein Neg (Negative) Urine Glucose (UA) Norm (Normal) Urine Ketones Negative (Negative) Urine Occult Blood Neg (Negative) Urine Nitrate Negative (Negative) Urine Bilirubin Neg (NEGATIVE) Urine Urobilinogen Norm (Negative) mg/dL Ur Leukocyte Lisa ase Negative (Negative) Urine RBC None (0-2) /hpf Urine WBC None (0-5) /hpf Ur Squamous Epith Cells None (0-5) Urine Bacteria None (NONE) Discharge Plan Discharge Patient Disposition: Home, Self-Care Clinical Impression: Dysuria Condition: Stable Prescriptions: No Action lithium carbonate 300 mg capsule 300 mg PO BID Qty: 60 RF: 2 trazodone 50 mg Tablet 50 mg PO BEDTIME PRN (Reason: Sleep) Qty: 15 RF: 1 gabapentin 100 mg Capsule 100 mg PO TID Qty: 90 RF: 0 aripiprazole 10 mg Tablet 10 mg PO DAILY 30 Days Qty: 30 RF: 1 gabapentin 100 mg Capsule 100 mg PO TID 30 Days Qty: 90 RF: 0 ibuprofen 800 mg tablet 800 mg PO Q8H PRN (Reason: pain) Qty: 20 RF: 0 Discharge Orders: Discharge Order (Routine); Ordered 05/28/19 Ordered By: Ricardo Miranda Referrals: Kyree Naqvi MD [Primary Care Provider] - Discharge Diet: Usual diet Discharge Activity: Resume usual activity Patient Instructions: Dysuria (ED) Activity Restrictions/Additional Instructions: Follow-up with medical provider as directed. Take medications as prescribed. Return to the ER or your medical provider if condition worsens. Please read and understand discharge instructions. If any questions ask please. Make sure you see your primary care provider Discharge Date/Time: 05/28/19 21:21 Coding Level of Care Code ED Electronic Prepress Operator for Sriram Davalos
== END 2019-05-28 21:21 | disposition home or self-care (01) ==
PROVIDERS: Emergency Medicine; Emergency Provider Nurse Practitioner Family; PCP Urology
DX: R30.0 Dysuria (principal); F17.210 Nicotine dependence, cigarettes, uncomplicated
CPT/HCPCS: 81001; 99282

== ENCOUNTER 2019-05-30 01:48 | Emergency (ER) | payer MEDICAID, SELFPAY ==
[2019-05-30 02:07] VITALS: BP 165/96; PULSE 97; RESP 20; TEMP 36.6; O2SAT 94; BMI 29.8
--- NOTE | 2019-05-30 02:18 | ED_ITS ---
HPI - Chest Pain General: Chief Complaint: Chest Pain Stated Complaint: CP Time Seen by Provider: 05/30/19 02:10 History of Present Illness: HPI narrative: Patient complains about chest wall tenderness on the left upper chest. Complains of pain with range of motion of his arm. Patient is requesting picture of where he had a heart surgery in the past. Denies any illicit drug use here recently. Said he is not taking medication for this pain that he has. Said it hurts when he moves his shoulder around. Said is been going on for days patient denies being suicidal denies any is going to hurt himself or anybody else he said he has had these thoughts in the past but currently he is doing fine complaint: chest discomfort Onset (ago): day(s) Timing of current episode: episodic Prior episodes: Yes Pain location: left chest Pain radiation: none and left shoulder (Left shoulder hurts with range of motion) Quality: aching Exacerbating factors: movement Associated symptoms: Deny abdominal pain, dyspnea, fever(s), nausea or vomiting Review of Systems Const: Denies: fever, chills or body aches Eyes: Denies: change in vision or blurry vision ENMT: Denies: throat pain or nasal congestion Card: Reports: chest pain; Denies: shortness of breath on exertion Resp: Denies: shortness of breath, productive cough or non-productive cough GI: Denies: abdominal pain, nausea or vomiting : Denies: difficulty urinating Musc: Reports: extremity pain (Left shoulder) Skin/Breast: Denies: rash Neuro: Denies: headache Psych: Denies: anxiety or depression Bull/Lymph: Denies: easy bruising PFSH ED PFSH: Statuses (acute, chronic, etc) shown below reflect problem list status as previously entered and may not be historically accurate Social History Smoking and tobacco status: current every day smoker Physical Exam Const: COMMON NORMALS: no apparent distress, average body habitus and oriented x3 HENMT: COMMON NORMALS: normocephalic HEAD & SCALP: normal to inspection and normocephalic FACE & SINUS: normal facial exam Eye: COMMON NORMALS: conjunctivae normal GENERAL EYE: normal appearance of both eyes CONJUNCTIVA: Yes conjunctivae normal Neck/C-Spine: COMMON NORMALS: no JVD Chest: COMMONS NORMALS: negative for palpation of chest normal (Does have chest wall tenderness to his left chest up into the shoulder and has pains with range of motion of left shoulder denies any heaviness in his chest) Resp: COMMON NORMALS: normal respiratory effort and clear to auscultation bilaterally AUSCULTATION: clear to auscultation bilaterally Cardio: COMMON NORMALS: no JVD, regular rate and regular rhythm RATE: r egular rate RHYTHM: regular rhythm GI: COMMON NORMALS: normal to inspection, nondistended, normoactive bowel sounds Extremity: COMMON NORMALS: normal to inspection and full ROM LEFT UPPER EXTREMITY: Yes shoulder joint (Pain with range of motion no swelling. Does have pain on palpation. Or pain with abduction then abduction.) Neuro: COMMON NORMALS: oriented x3 Course Vital Signs: Vital signs: Vital Signs Temperature 97.8 F 05/30/19 02:07 Pulse Rate 97 05/30/19 02:07 Respiratory Rate 20 H 05/30/19 02:07 Blood Pressure 165/96 05/30/19 02:07 Pulse Oximetry 94 05/30/19 02:07 MDM - Chest Pain EKG Data^: EKG 1: EKG interpretation date: 05/30/19 EKG interpretation time: 02:12 Interpretation: NSR, 88BPM Discharge Plan Discharge Patient Disposition: Home, Self-Care Clinical Impression: Chest wall tenderness Condition: Stable Prescriptions: New ketorolac 10 mg tablet 10 mg PO TID PRN (Reason: pain) 3 Days RF: 0 No Action naproxen [EC-Naprosyn] 500 mg tablet,delayed release (DR/EC) 500 mg PO BID PRN (Reason: pain) Qty: 20 RF: 0 trazodone 50 mg Tablet 50 mg PO BEDTIME PRN (Reason: Sleep) Qty: 15 RF: 1 lithium carbonate 300 mg Capsule 300 mg PO BID Qty: 60 RF: 2 gabapentin 100 mg Capsule 100 mg PO TID Qty: 90 RF: 0 aripiprazole 30 mg Tablet 15 mg PO DAILY Qty: 30 RF: 2 ciprofloxacin HCl 500 mg tablet 500 mg PO BID Qty: 10 RF: 0 Referrals: Kyree Naqvi MD [Primary Care Provider] - Discharge Diet: Advance as tolerated Discharge Activity: Increase activity as tolerated Patient Instructions: Chest Pain - Chest Wall Activity Restrictions/Additional Instructions: Follow-up with medical provider as directed. Take medications as prescribed. Return to the ER or your medical provider if condition worsens. Please read and understand discharge instructions. If any questions ask please. Ice and heat alternate to left shoulder left chest wall Coding Level of Care Code ED Oscillograph Technician for Tanyag Fwd Exam Problem Focused
--- NOTE | 2019-05-30 02:22 | XR_ITS ---
WS: [id number] CHEST XRAY TECHNIQUE: Portable chest. CLINICAL INFORMATION: admission COMPARISON: None. FINDINGS: Heart: Sternotomy. CABG. Lungs: Mild chronic emphysematous changes. No acute pulmonary infiltrates. Bones: Normal visualized bony structures. XR/XR chest 1V portable [id number] IMPRESSION: No acute chest findings
[2019-05-30] MEDS: ketorolac 60 mg/2 mL INJ IM (02:32)
[2019-05-30 03:01] VITALS: BP 113/62; PULSE 84; RESP 16; O2SAT 94
== END 2019-05-30 03:02 | disposition home or self-care (01) ==
PROVIDERS: Emergency Provider Nurse Practitioner Family; PCP Urology
DX: R07.89 Other chest pain (principal); F17.210 Nicotine dependence, cigarettes, uncomplicated
CPT/HCPCS: 71045; 96372; 99281; 99283; J1885

== ENCOUNTER 2019-05-31 00:43 | Emergency (ER) | payer MEDICAID, SELFPAY | END 2019-05-31 04:05 | disposition admitted as inpatient to this hospital (09) | LOC: ER 06-21 07:37 | PROVIDERS: Emergency Provider Emergency Medicine | DX: F43.9 Reaction to severe stress, unspecified (principal); R45.851 Suicidal ideations; R45.850 Homicidal ideations; F17.210 Nicotine dependence, cigarettes, uncomplicated | CPT/HCPCS: 36415; 80053; 80156; 80164; 80178; 80185; 80307; 81003; 84443; 85025; 99284; 99285 ==

== ENCOUNTER 2019-05-31 00:43 | Inpatient (IN) | payer MEDICAID, SELFPAY ==
[2019-05-31] VITALS (7 sets, daily range): BP systolic 132–173; BP diastolic 83–105; PULSE 68–98; RESP 17–20; TEMP 36.4–36.7; O2SAT 95–98; BMI 29.8
--- NOTE | 2019-05-31 01:11 | ED_ITS ---
Documented by User: KEISHA La 05/31/19 17:09 HPI - Psych General: Chief Complaint: Psychiatric Symptoms Stated Complaint: LEFT FOOT PAIN, STRESSED Time Seen by Provider: 05/31/19 00:54 Source: patient Mode of arrival: ambulatory Limitations: no limitations History of Present Illness: HPI Narrative: Patient comes in today for complaints of suicidal thoughts and homicidal ideation. Patient has a history of psychiatric disorder and substance abuse. Patient does admit to use of meth every now and then. Patient denies any alcohol use or cigarette use. Patient states he takes lithium and gabapentin routinely. Patient is also on a antibiotic he reports for a urinary tract infection and has also been on some ketorolac for chest wall pain. Patient appears well. Patient appears in no pain. Patient is very cooperative. Patient is homeless. MD complaint: suicidal ideation Context: significant life stressor (homeless) Associated symptoms: Reports depression and suicidal ideation Review of Systems General: Reports: 10 or more systems reviewed and unremarkable except in HPI and below Psych: Reports: depression and suicidal ideation PFS ED PFSH: Statuses (acute, chronic, etc) shown below reflect problem list status as previously entered and may not be historically accurate Social History Smoking and tobacco status: current every day smoker Physical Exam Const: COMMON NORMALS: no apparent distress and oriented x3 GENERAL APPEARANCE: cooperative HENMT: COMMON NORMALS: normocephalic, external ears normal, EAC's normal, TM's normal bilaterally and external nose normal HEAD & SCALP: normal to inspection and normocephalic FACE & SINUS: normal facial exam NOSE: external nose normal GENERAL EAR: hearing not grossly impaired EXTERNAL EA R: Yes external ears normal EXTERNAL AUDITORY CANAL: EAC's normal TYMPANIC MEMBRANE: TM's normal bilaterally MOUTH: oral and palatal mucosa normal THROAT: posterior oropharynx normal Eye: COMMON NORMALS: PERRL and EOMs intact bilaterally PUPIL: Yes PERRL Neck/C-Spine: COMMON NORMALS: full ROM and no lymphadenopathy Lymph: LYMPHATIC: no lymphedema noted Chest: COMMONS NORMALS: inspection of chest normal and palpation of chest normal Resp: COMMON NORMALS: normal respiratory effort and clear to auscultation bilaterally AUSCULTATION: clear to auscultation bilaterally Cardio: COMMON NORMALS: regular rate and regular rhythm RATE: regular rate RHYTHM: regular rhythm GI: COMMON NORMALS: normal to inspection, nondistended, normoactive bowel soun ds and non-tender : COMMON NORMALS: Yes no CVA tenderness BLADDER/KIDNEY EXAM: Yes no CVA tenderness Back/Pelvis: COMMON NORMALS: no CVA tenderness and thoracic and lumbar spine normal to inspection Extremity: COMMON NORMALS: normal to inspection GENERAL: No edema Neuro: COMMON NORMALS: oriented x3, moves all extremities and no focal motor deficits Psych: COMMON NORMALS: thought process normal, cooperative and activity/motor behavior normal (flat affect) APPEARANCE: Yes unkempt ATTITUDE: Yes calm ACTIVITY/MOTOR BEHAVIOR: No appropriate eye contact SPEECH: Yes slow MOOD & AFFECT: Yes blunted affect THOUGHT PROCESS: normal thought process THOUGHT CONTENT: Yes suicidality (wants to step into traffic to kill self) and Yes homicidality (wants to harm some family member ) ATTENTION/CONCENTRATION: Yes attention grossly intact MEMORY/COGNITION: Yes memory grossly intact INSIGHT: fair JUDGEMENT: fair Skin: COMMON NORMALS: no rashes or lesions noted GENERAL SKIN EXAM: no rashes or lesions noted MDM - Psych Lab Data: Labs: Lab Results 05/31/19 05/31/19 05/31/19 Range/Units 00:57 00:57 01:25 WBC 6.4 (4.0-10.0) 10^3/ uL RBC 4.75 (4.1-5.3) 10^6/u L Hgb 12.9 (11.7-16.6) g/dL Hct 39.8 L (42.0-52.0) % MCV 83.8 (80-94) fL MCH 27.2 L (28.0-34.0) pg MCHC 32.4 (30.0-36.0) g/dL RDW 13.2 (12.1-15.1) % Plt Count 250 (130-400) 10^3/c mm MPV 9.1 (7.4-10.4) fL Neut % (Auto) 51.4 % Lymph % (Auto) 37.6 % [place] % (Auto) 8.2 % Eos % (Auto) 2.3 % Baso % (Auto) 0.3 % Neut # (Auto) 3.3 (1.8-7.7) 10^3/u L Lymph # (Auto) 2.4 (0.8-4.8) 10^3/u L [place] # (Auto) 0.5 (0.2-0.9) 10^3/u L Eos # (Auto) 0.2 (0.0-0.8) 10^3/u L Baso # (Auto) 0.0 (0.0-0.1) 10^3/u L Nucleated RBC % (a uto) 0 % Nucleated RBCs # 0.0 /100WBC Sodium (136-145) mmol/L Potassium (3.5-5.1) mmol/L Chloride (98-107) mmol/L Carbon Dioxide (22-29) mmol/L Anion Gap (5-19) BUN (6-20) mg/dL Creatinine (0.7-1.2) mg/dL GFR Calculation (90-130) mL/min Glucose (74-109) mg/dL Calcium (8.5-10.5) mg/dL Total Bilirubin (0.15-1.2) mg/dL AST (0-40) U/L ALT (0-41) U/L Alkaline Phosphata se (40-130) IU/L Total Protein (6.6-8.7) g/dL Albumin (3.5-5.2) g/dL Globulin (1.3-4.6) g/dL TSH (0.27-4.20) uIU/ mL Urine Color Yellow (Yellow) Urine Appearance Clear (CLEAR) Urine pH 6 (5-7) Ur Specific Gravit y 1.020 (1.005-1.030) Urine Protein Neg (Negative) Urine Glucose (UA) Norm (Normal) Urine Ketones Negative (Negative) Urine Occult Blood Neg (Negative) Urine Nitrate Negative (Negative) Urine Bilirubin Neg (NEGATIVE) Urine Urobilinogen Norm (Negative) mg/dL Ur Leukocyte Lisa ase Negative (Negative) Salicylates (3-10) mg/dL Urine Opiates Scre en Negative (Negative) ng/mL Acetaminophen (10-30) ug/mL Ur Barbiturates Sc reen Negative (Negative) ng/mL Phenytoin (10-20) ug/mL Valproic Acid (50-100) mcg/mL Carbamazepine (4.0-12.0) ug/mL Ur Phencyclidine S crn Negative (Negative) ng/mL Ur Amphetamines Sc reen Positive H (Negative) ng/mL U Benzodiazepines Scrn Negative (Negative) ng/mL [place] (0.6-1.2) mmol/L Urine Cocaine Scre en Negative (Negative) ng/mL U Marijuana (THC) Screen Negative (Negative) ng/mL Ethyl Alcohol (0-10) mg/dL 05/31/19 05/31/19 Range/Units 01:25 01:25 WBC (4.0-10.0) 10^3/ uL RBC (4.1-5.3) 10^6/u L Hgb (11.7-16.6) g/dL Hct (42.0-52.0) % MCV (80-94) fL MCH (28.0-34.0) pg MCHC (30.0-36.0) g/dL RDW (12.1-15.1) % Plt Count (130-400) 10^3/c mm MPV (7.4-10.4) fL Neut % (Auto) % Lymph % (Auto) % [place] % (Auto) % Eos % (Auto) % Baso % (Auto) % Neut # (Auto) (1.8-7.7) 10^3/u L Lymph # (Auto) (0.8-4.8) 10^3/u L [place] # (Auto) (0.2-0.9) 10^3/u L Eos # (Auto) (0.0-0.8) 10^3/u L Baso # (Auto) (0.0-0.1) 10^3/u L Nucleated RBC % (a uto) % Nucleated RBCs # /100WBC Sodium 139 (136-145) mmol/L Potassium 4.0 (3.5-5.1) mmol/L Chloride 100 (98-107) mmol/L Carbon Dioxide 28 (22-29) mmol/L Anion Gap 15.0 (5-19) BUN 11 (6-20) mg/dL Creatinine 1.0 (0.7-1.2) mg/dL GFR Calculation 81.6 L (90-130) mL/min Glucose 115 H (74-109) mg/dL Calcium 9.8 (8.5-10.5) mg/dL Total Bilirubin 0.4 (0.15-1.2) mg/dL AST 45 H (0-40) U/L ALT 40 (0-41) U/L Alkaline Phosphata se 71 (40-130) IU/L Total Protein 7.3 (6.6-8.7) g/dL Albumin 4.0 (3.5-5.2) g/dL Globulin 3.3 (1.3-4.6) g/dL TSH 5.67 H (0.27-4.20) uIU/ mL Urine Color (Yellow) Urine Appearance (CLEAR) Urine pH (5-7) Ur Specific Gravit y (1.005-1.030) Urine Protein (Negative) Urine Glucose (UA) (Normal) Urine Ketones (Negative) Urine Occult Blood (Negative) Urine Nitrate (Negative) Urine Bilirubin (NEGATIVE) Urine Urobilinogen (Negative) mg/dL Ur Leukocyte Lisa ase (Negative) Salicylates < 0.3 L (3-10) mg/dL Urine Opiates Scre en (Negative) ng/mL Acetaminophen < 5.0 L (10-30) ug/mL Ur Barbiturates Sc reen (Negative) ng/mL Phenytoin < 0.8 L (10-20) ug/mL Valproic Acid < 2.8 L (50-100) mcg/mL Carbamazepine < 2.0 L (4.0-12.0) ug/mL Ur Phencyclidine S crn (Negative) ng/mL Ur Amphetamines Sc reen (Negative) ng/mL U Benzodiazepines Scrn (Negative) ng/mL [place] 0.7 (0.6-1.2) mmol/L Urine Cocaine Scre en (Negative) ng/mL U Marijuana (THC) Screen (Negative) ng/mL Ethyl Alcohol < 10 (0-10) mg/dL Discharge Plan Discharge Patient Disposition: Admitted As Inpatient Admit Provider: Jorge L Ceron Condition: Stable Referrals: Kyree Naqvi MD [Primary Care Provider] - Discharge Date/Time: 05/31/19 04:05 Sign Out Sign Out Data: Patient Sign Out occurred on 05/31/19 at 02:56. Patient's care was discussed, and care was transferred from Roberth Jim to Sulema Perez. Sign Out Comment: Patient comes in for suicidal thought and homicidal ideation. Patient was kicked out of family home, patient is cooperative. Labs back awaiting admit to [facility]. wjw Last updated by Roberth Jmi FNP at 05/31/19 02:48 Coding Level of Care Code ED [employer] Chg Fwd Exam Problem Focused Documented by User: Sulema Perez 05/31/19 04:33 HPI - Psych General: Chief Complaint: Psychiatric Symptoms Stated Complaint: LEFT FOOT PAIN, STRESSED Time Seen by Provider: 05/31/19 00:54 [facility] ED PFSH: Statuses (acute, chronic, etc) shown below reflect problem list status as previously entered and may not be historically accurate Social History Smoking and tobacco status: current every day smoker MDM - Psych MDM Narrative: Medical decision making narrative: Patient care assumed by me at the end of shift of Roberth Jim APN. Please see his note for his history, physical exam and medical decision making notes. The patient was admitted by me with a 96-hour hold. Dr. Ceron accepts the patient. Lab Data: Attestation: I reviewed the patient's lab results. Labs: Lab Results 05/31/19 05/31/19 05/31/19 Range/Units 00:57 00:57 01:25 WBC 6.4 (4.0-10.0) 10^3/ uL RBC 4.75 (4.1-5.3) 10^6/u L Hgb 12.9 (11.7-16.6) g/dL Hct 39.8 L (42.0-52.0) % MCV 83.8 (80-94) fL MCH 27.2 L (28.0-34.0) pg MCHC 32.4 (30.0-36.0) g/dL RDW 13.2 (12.1-15.1) % Plt Count 250 (130-400) 10^3/c mm MPV 9.1 (7.4-10.4) fL Neut % (Auto) 51.4 % Lymph % (Auto) 37.6 % [place] % (Auto) 8.2 % Eos % (Auto) 2.3 % Baso % (Auto) 0.3 % Neut # (Auto) 3.3 (1.8-7.7) 10^3/u L Lymph # (Auto) 2.4 (0.8-4.8) 10^3/u L [place] # (Auto) 0.5 (0.2-0.9) 10^3/u L Eos # (Auto) 0.2 (0.0-0.8) 10^3/u L Baso # (Auto) 0.0 (0.0-0.1) 10^3/u L Nucleated RBC % (a uto) 0 % Nucleated RBCs # 0.0 /100WBC Sodium (136-145) mmol/L Potassium (3.5-5.1) mmol/L Chloride (98-107) mmol/L Carbon Dioxide (22-29) mmol/L Anion Gap (5-19) BUN (6-20) mg/dL Creatinine (0.7-1.2) mg/dL GFR Calculation (90-130) mL/min Glucose (74-109) mg/dL Calcium (8.5-10.5) mg/dL Total Bilirubin (0.15-1.2) mg/dL AST (0-40) U/L ALT (0-41) U/L Alkaline Phosphata se (40-130) IU/L Total Protein (6.6-8.7) g/dL Albumin (3.5-5.2) g/dL Globulin (1.3-4.6) g/dL TSH (0.27-4.20) uIU/ mL Urine Color Yellow (Yellow) Urine Appearance Clear (CLEAR) Urine pH 6 (5-7) Ur Specific Gravit y 1.020 (1.005-1.030) Urine Protein Neg (Negative) Urine Glucose (UA) Norm (Normal) Urine Ketones Negative (Negative) Urine Occult Blood Neg (Negative) Urine Nitrate Negative (Negative) Urine Bilirubin Neg (NEGATIVE) Urine Urobilinogen Norm (Negative) mg/dL Ur Leukocyte Lisa ase Negative (Negative) Salicylates (3-10) mg/dL Urine Opiates Scre en Negative (Negative) ng/mL Acetaminophen (10-30) ug/mL Ur Barbiturates Sc reen Negative (Negative) ng/mL Phenytoin (10-20) ug/mL Valproic Acid (50-100) mcg/mL Carbamazepine (4.0-12.0) ug/mL Ur Phencyclidine S crn Negative (Negative) ng/mL Ur Amphetamines Sc reen Positive H (Negative) ng/mL U Benzodiazepines Scrn Negative (Negative) ng/mL [place] (0.6-1.2) mmol/L Urine Cocaine Scre en Negative (Negative) ng/mL U Marijuana (THC) Screen Negative (Negative) ng/mL Ethyl Alcohol (0-10) mg/dL 05/31/19 05/31/19 Range/Units 01:25 01:25 WBC (4.0-10.0) 10^3/ uL RBC (4.1-5.3) 10^6/u L Hgb (11.7-16.6) g/dL Hct (42.0-52.0) % MCV (80-94) fL MCH (28.0-34.0) pg MCHC (30.0-36.0) g/dL RDW (12.1-15.1) % Plt Count (130-400) 10^3/c mm MPV (7.4-10.4) fL Neut % (Auto) % Lymph % (Auto) % [place] % (Auto) % Eos % (Auto) % Baso % (Auto) % Neut # (Auto) (1.8-7.7) 10^3/u L Lymph # (Auto) (0.8-4.8) 10^3/u L [place] # (Auto) (0.2-0.9) 10^3/u L Eos # (Auto) (0.0-0.8) 10^3/u L Baso # (Auto) (0.0-0.1) 10^3/u L Nucleated RBC % (a uto) % Nucleated RBCs # /100WBC Sodium 139 (136-145) mmol/L Potassium 4.0 (3.5-5.1) mmol/L Chloride 100 (98-107) mmol/L Carbon Dioxide 28 (22-29) mmol/L Anion Gap 15.0 (5-19) BUN 11 (6-20) mg/dL Creatinine 1.0 (0.7-1.2) mg/dL GFR Calculation 81.6 L (90-130) mL/min Glucose 115 H (74-109) mg/dL Calcium 9.8 (8.5-10.5) mg/dL Total Bilirubin 0.4 (0.15-1.2) mg/dL AST 45 H (0-40) U/L ALT 40 (0-41) U/L Alkaline Phosphata se 71 (40-130) IU/L Total Protein 7.3 (6.6-8.7) g/dL Albumin 4.0 (3.5-5.2) g/dL Globulin 3.3 (1.3-4.6) g/dL TSH 5.67 H (0.27-4.20) uIU/ mL Urine Color (Yellow) Urine Appearance (CLEAR) Urine pH (5-7) Ur Specific Gravit y (1.005-1.030) Urine Protein (Negative) Urine Glucose (UA) (Normal) Urine Ketones (Negative) Urine Occult Blood (Negative) Urine Nitrate (Negative) Urine Bilirubin (NEGATIVE) Urine Urobilinogen (Negative) mg/dL Ur Leukocyte Lisa ase (Negative) Salicylates < 0.3 L (3-10) mg/dL Urine Opiates Scre en (Negative) ng/mL Acetaminophen < 5.0 L (10-30) ug/mL Ur Barbiturates Sc reen (Negative) ng/mL Phenytoin < 0.8 L (10-20) ug/mL Valproic Acid < 2.8 L (50-100) mcg/mL Carbamazepine < 2.0 L (4.0-12.0) ug/mL Ur Phencyclidine S crn (Negative) ng/mL Ur Amphetamines Sc reen (Negative) ng/mL U Benzodiazepines Scrn (Negative) ng/mL [place] 0.7 (0.6-1.2) mmol/L Urine Cocaine Scre en (Negative) ng/mL U Marijuana (THC) Screen (Negative) ng/mL Ethyl Alcohol < 10 (0-10) mg/dL Discharge Plan Discharge Patient Disposition: Admitted As Inpatient Admit Provider: Jorge L Ceron Condition: Stable Referrals: Kyree Naqvi MD [Primary Care Provider] - Discharge Date/Time: 05/31/19 04:05 Sign Out Sign Out Data: Patient Sign Out occurred on 05/31/19 at 02:56. Patient's care was discussed, and care was transferred from Roberth Jim to Sulema Perez. Sign Out Comment: Patient comes in for suicidal thought and homicidal ideation. Patient was kicked out of family home, patient is cooperative. Labs back awaiting admit to [facility]. wjw Last updated by Roberth Jim FNP at 05/31/19 02:48 Coding Level of Care Code ED [employer]g Fwd Exam Problem Focused
[2019-05-31 01:31] LABS: Basophils % 0.3 %; Eosinophils # 0.2 10^3/uL (0.0-0.8); Eosinophils % 2.3 %; Hematocrit 39.8 % (42.0-52.0); Hemoglobin 12.9 g/dL (11.7-16.6); Lymphocytes # 2.4 10^3/uL (0.8-4.8); Lymphocytes % 37.6 %; Mean Corpuscular HGB Conc 32.4 g/dL (30.0-36.0); Mean Corpuscular Hemoglobin 27.2 pg (28.0-34.0); Mean Corpuscular Volume 83.8 fL (80-94); Mean Platelet Volume 9.1 fL (7.4-10.4); Monocytes # 0.5 10^3/uL (0.2-0.9); Monocytes % 8.2 %; Neutrophils # 3.3 10^3/uL (1.8-7.7); Neutrophils % 51.4 %; Nucleated Red Blood Cells % 0 %; Platelet Count 250 10^3/cmm (130-400); Red Blood Count 4.75 10^6/uL (4.1-5.3); Red Cell Distribution Width 13.2 % (12.1-15.1); White Blood Count 6.4 10^3/uL (4.0-10.0)
[2019-05-31 01:33] LABS: Add Urine Microscopic? NO
[2019-05-31 01:36] LABS: Bilirubin Urine Neg (NEGATIVE); Blood Urine Neg (Negative); Glucose Urine UA Norm (Normal); Ketones Urine Negative (Negative); Leukocyte Esterase Urine Negative (Negative); Nitrate Urine Negative (Negative); Protein Urine Neg (Negative); Urine Appearance Clear (CLEAR); Urine Color Yellow (Yellow); Urobilinogen Urine Norm (Negative); pH Urine 6 (5-7)
[2019-05-31 01:53] LABS: Barbiturates Screen Urine Negative (Negative); Benzodiazepines Screen Urine Negative (Negative); Cocaine Screen Urine Negative (Negative); Opiate Screen Urine Negative (Negative); PCP Screen Urine Negative (Negative); THC Screen Urine Negative (Negative)
[2019-05-31 01:56] LABS: Alanine Aminotransferase 40 U/L (0-41); Alkaline Phosphatase 71 IU/L (40-130); Aspartate Amino Transferase 45 U/L (0-40); Blood Urea Nitrogen 11 mg/dL (6-20); Calcium 9.8 mg/dL (8.5-10.5); Carbon Dioxide 28 mmol/L (22-29); Chloride 100 mmol/L (98-107); Globulin 3.3 g/dL (1.3-4.6); Glomerular Filtration Rate 81.6 mL/min (90-130); Glucose 115 mg/dL (74-109); Sodium 139 mmol/L (136-145); Thyroid Stimulating Hormone 5.67 uIU/mL (0.27-4.20); Total Bilirubin 0.4 mg/dL (0.15-1.2); Total Protein 7.3 g/dL (6.6-8.7)
[2019-05-31 02:37] LABS: Acetaminophen < 5.0 ug/mL (10-30); Alcohol Level < 10 mg/dL (0-10); Salicylate < 0.3 mg/dL (3-10)
[2019-05-31 02:39] LABS: Amphetamines Screen Urine Positive (Negative)
[2019-05-31 06:06] LABS: Lithium 0.7 mmol/L (0.6-1.2)
[2019-05-31 06:27] LABS: Carbamazepine Tegretol < 2.0 ug/mL (4.0-12.0); Phenytoin Dilantin < 0.8 ug/mL (10-20); Valproic Acid Level < 2.8 mcg/mL (50-100)
[2019-05-31] MEDS: lithium carbonate 300 mg Capsule PO ×2 (08:27→17:09)
[2019-05-31] MEDS: ciprofloxacin 500 mg Tablet PO ×2 (08:27→17:08)
[2019-05-31] MEDS: gabapentin 100 mg Capsule PO ×3 (08:28→20:45)
--- NOTE | 2019-05-31 13:28 | P.HP_ITS ---
Providers/Chief Complaint Admitting Physician: Jorge L Ceron MD Primary Care Provider: Kyree Naqvi MD Chief Complaint: SI HPI NPU History of Present Illness Yahir Kirkland is a 43 year old male who presents for evaluation today was limited contributory information for the circumstance. He is homeless and is reporting more or less that he is couch surfing post discharge. He initially very much focused on how medications to be changed in very much downplays his addiction and those choices in the circumstances. We discussed his medications at length and the symptoms he's been having changes will be possible. Specifically we discussed the possibility of increasing his lithium, he'll requesting increase in his Neurontin back to a dose he reports he was being given before, we discussed Abilify and whether or not it was effective and he h ad been actually using it prior to admission, as well as all his other medications. He reports that he ran out of the Abilify due to limitation in prescribing and we agree I would look into it and we would consider restarting the Abilify. We discussed however the importance of him following up with outpatient services and creating an environment where he can have success with outpatient treatment. We reviewed the chart for May and March and those hospitalizations. He reports that there've been no significant changes from a psychosocial standpoint in this period of time. Information from past hospitalizations: HPI NPU History of Present Illness Yahir Kirkland is a 43 year old male Chief complaint: History of present illness: Yahir Kirkland Presents for his 8 admission 2 months and second admission in 14 days.As is typical, Yahir does not provides much information though it becomes clear that his main intent and concern is lack of shoulder with rigid cold weather coming. The emergency room note is limited to: complaint: suicidal ideation and feels depressed Duration: constant History of same: Yes Relieving factors: none Exacerbating factors: other (homeless, lack of resources) Associated psychiatric symptoms: depression and suicidal ideation Associated symptoms: Reports depression and suicidal ideation Treatments prior to arrival: none If self harm: admits thoughts of self harm and has plan It is also noted that no lithium level was done at the time of admission. He was just in this unit for 4 days commencing on 05/06/2019. He was discharged on a combination of Abilify, lithium, and doxepin. The patient states that he likes his lithium because it helps him sleep. Noncompliance has been a problem in the past. He had been on Abilify and maintain a with his last injection being on April 27. His next scheduled injection would not be for another 9 days. He reported suicidal ideation but could not delineate a plan. Historically, he has utilized this complaint to gain access to the inpatient psychiatric unit for short periods of time. Mental health history: Discharge summary from 04/28/2019:Admission Diagnosis: Depression with suicidal ideation. Other Discharge Diagnoses: Chronic disorganized schizophrenia, mild. Psychosocial impairment. Homelessness. Noncompliance Procedures Performed: Initiation of Abilify maintena. Involvement in milieu. Discharge planning including follow-up for Abilify maintena. Brief History: The patient presents on a voluntary basis for his 6th admission in 12 months. He again vaguely reports suicidal ideation without intent or plan. He indicates he should be on Abilify maintena, suggesting the [facility] protocol, which our pharmacist says we don?t have and would have to be approved by the pharmacy consultant. He is homeless and it is cold and raining outside. Otherwise, he denies symptoms of depression. His suicidal ideation is passive only. He denies presence of auditory or visual hallucinations. There is no apparent imminent risk to self or others. Hospital Course: The patient is here mainly to get his Abilify maintena, which was administered on the . He is doing well his mood is good and he is not troubled with any auditory hallucinations. He is now competent, per my assessment today, to resume responsibility for life on the outside. Disposition: Patient will be discharged to self-care. He has an apartment and her roommate and his car will be out of impound tomorrow. Condition at Discharge: The patient is improved she has not hallucinating mental status is bright and cheerful thought processes are under aerated and he has not delusional he has sufficient judgment and insight to resume his self-care in a safe manner. New Medications: Aripiprazole Maintena (Abilify Maintena) 400 Mg Suser.vial 400 MG IM every thirty days for 30 Days, #1 VIAL 1 Refill Next injection of Abilify maintena 400 milligrams is due May 28. Discharge summary from his admission on 03/30/2019: Yahir Cancino presented on a voluntary basis for his fifth admission in 12 months. He vaguely reported suicidal ideation without intent or plan. He said that since his last admission here in November, he has not had any medication for the past month. He took the medications for a couple months and then stopped mainly out of financial reasons. 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 He does not give an estimate on how much he has been using. However he was charged with possession 2 weeks ago and has an upcoming court date. This is not supported by a search of public records. Patient states that he is looking for a residential drug treatment. However, the patient also states that one of his primary concerns is that he is homeless and winter is coming. Otherwise he denies symptoms of depression. His suicidal ideation is passive only. He denies presence of auditory or visual hallucinations. He has good hedonic capacity. There is no apparent imminent risk to self or others. Hospital Course: The patient stabilized rapidly. He was tearful when I saw him yesterday but his mood has brightened now that he has the psychosocial support of our discharge planners. He continues to deny any suicidal or homicidal ideation, plan or intent. He says he is ready to leave and he will be safe. Social history:The patient remains homeless. His social history otherwise has not changed since his last admission. Legal history:The past years, he has been arrested for possession of marijuana twice, failing to drive on the correct side of the road once, and once for stealing. Past medical history:Please see the emergency room nursing notes. No significant changes since his admission of 05/06/2019. Mental Status Exam: Appearance: hygiene is fair; no gross neurological deficits., gait is unremarkable; AIMS=0 Speech: Speech is of normal rate and rhythm and easily understood. Thought processes: Thought processes are [place]. Judgment is not adequate for safety. Associations: intact Psychotic processes: There is no indication of guarding or paranoia. There is no attention to the internal stimuli. Auditory and visual hallucinations are denied. Judgment: Insight is fair. Problem solving skills are Poor. Orientation: The patient is oriented to person, place time and situation. Memory: no deficits noted in immediate, intermediate, or remote spheres. Attention: The patient is alert and interpersonally engaged. Language: Verbalizations are coherent. Fund of knowledge: Fund of knowledge is poor. Affect/Mood: Affect is consistent with a Euthymic mood. He verbalized passive suicidal ideation Affective range Constricted Psychosis: perception unimpaired except through cognitive distortion and cognitive limitations; reality testing intact. Diagnoses:Adjustment disorder with disturbance of mood and conduct Assessment:A lithium level be acquired to see if he has been at all compliant with medication is noted that he has already been given lithium once this mornin g. The rest of his medications will be continued and will see how his suicidal ideations evolve based on changing his psychosocial circumstances. Treatment plan: Due to the psychiatric conditions and treatment listed in the Assessment and Plan - the patient requires continued hospitalization. Will provide a safe and therapeutic environment for patient.. Will continue inpatient treatment to allow for medication adjustment and monitoring. Will continue q15 min safety checks. Hospital day #1:Will continue current medications and monitor for medication side effects. A lithium level be acquired to see if he has been at all compliant with medication is noted that he has already been given lithium once this morning. The rest of his medications will be continued and will see how his suicidal ideations evolve based on changing his psychosocial circumstances. Monitor patient's mood, sleep, appetite, and behavior closely. Encourage patient to participate in individual and group therapeutic sessions on the alvarez. Estimated length of stay 5 days The expected benefits and potential side effects of patient's psychiatric medications were discussed with the patient. The patient understands and c onsents to treatment.CRITERIA FOR DISCHARGE: stable on medications and no longer an im Meds NPU Allergies Allergy/AdvReac Type Severity Reaction Status Date / Time No Known Allergies Allergy Verified 05/31/19 00:54 PFSH NPU PFSH: Statuses (acute, chronic, etc) shown below reflect problem list status as previously entered and may not be historically accurate Social History Smoking and tobacco status: current every day smoker Mental Status Exam MSE Comments: This is an obese white male with adequate dress grooming and eye contact. No abnormal movements except for psychomotor retardation. Cooperative with exam in no acute distress. Speech was decreased rate and volume. Mood described as depressed affect subdued. Thought process organized. Thought content: Patient denied any suicidal or homicidal ideation, there were no delusions reported or noted, he denied any auditory visual hallucinations. Attention and concentration were intact and memory appeared mostly unreliable but none were formally tested. He is alert and oriented x3. Insight and judgment are impaired. Vitals/I&O/Wt Last Vital Signs Temp 98.1 F 05/31/19 13:36 Pulse 72 05/31/19 13:36 Resp 20 H 05/31/19 13:36 BP 141/83 05/31/19 13:36 Pulse Ox 97 05/31/19 13:36 Weight last 48 hrs Weight 99.79 kg Data NPU : 05/31/19 01:25 05/31/19 01:25 A&P Additional A&P Information This is a 43-year-old white male with multiple recent hospitalizations with similar story lines who presents reporting significant depression and anxiety and need for medication changes with continued active addiction with limited investment in any treatment paradigm that would give him a chance for success who presents wanting medications to be changes centimeters needs and with limited real conversation about addressing his ongoing addiction. Concerns for malingering have been raised. 1. Continue current medication. 2. Review medications and consider the appropriateness for restarting Abilify, increasing Neurontin, as well as considering an increase in the lithium. Additionally consideration of antidepressant is being discussed with Yahir. 3. Continue individual, group and milieu therapy. 4. Continue every 15 minute checks for safety. 5. Recommend sober living services at the highest level of care to which he is willing to commit. Involuntary Hold Information 96 Hour Hold: 96 Hour Involuntary Admission: Yes 96 Hour Hold Ending Date: 06/06/19 96 Hour Hold Ending Time: 01:25 Attestations NPU Medical Necessity Statement*: Inpatient hospitalization is medically necessary in the clinically appropriate intervention at this time. Will monitor medications and changes indicated and titrated to effect. He will be inpatient for over 2 midnights. Likely length of stay 3-5 days. Coding Level of Care Code Acute Attorney Law Clerk for Sriram Davalos
[2019-06-01 06:00] VITALS: BP 138/92; PULSE 72; RESP 21; TEMP 36.8; O2SAT 98
[2019-06-01] MEDS: lithium carbonate 300 mg Capsule PO ×2 (08:39→17:36)
[2019-06-01] MEDS: gabapentin 100 mg Capsule PO ×3 (08:39→20:48)
[2019-06-01] MEDS: ciprofloxacin 500 mg Tablet PO ×2 (08:39→17:35)
--- NOTE | 2019-06-01 11:05 | PM.NPN ---
Subjective NPU Subjective: Interval history: Yahir presented today and we discussed his plan moving forward. We discussed the fact that we would work with him this time but discussed his pattern of use of the inpatient unit and that we would need to make sure that we had some clear goals to his progress and treatment suspect that we're not just going in this pattern of him coming leaving when he has money and returning when he is broke. He endorsed understanding we discussed the risks benefits and alternatives of restarting Abilify and he understood and agreed to proceed as documented in his note. Mental Status Exam MSE Comments: This is an obese white male with adequate dress grooming and eye contact. No abnormal movements except for psychomotor retardation. Cooperative with exam in no acute distress. Speech was decreased rate and volume. Mood described as depressed affect subdued. Thought process organized. Thought content: Patient denied any suicidal or homicidal ideation, there were no delusions reported or noted, he denied any auditory visual hallucinations. Attention and concentration were intact and memory appeared mostly unreliable but none were formally tested. He is alert and oriented x3. Insight and judgment are improving. Vitals/I&O/Wt Last Vital Signs Temperature 98.1, pulse 73, respirations 18, pulse ox 98%, blood pressure 134/79 Data NPU : 05/31/19 01:25 05/31/19 01:25 A&P Additional A&P Information This is a 43-year-old white male with multiple recent hospitalizations with similar story lines who presents reporting significant depression and anxiety and need for medication changes with continued active addiction with limited investment in any treatment paradigm that would give him a chance for success who presents wanting medications to be changes centimeters needs and with limited real conversation about addressing his ongoing addiction. Concerns for malingering have been raised. 1. Continue current medication. 2. Restart Abilify 10 mg by mouth every morning. 3. Continue individual, group and milieu therapy. 4. Continue every 15 minute checks for safety. 5. Recommend sober living services at the highest level of care to which he is willing to commit. Involuntary Hold Information 96 Hour Hold: 96 Hour Involuntary Admission: Yes 96 Hour Hold Ending Date: 06/06/19 96 Hour Hold Ending Time: 01:25 Attestations NPU Medical Necessity Statement*: Inpatient hospitalization is medically necessary in the clinically appropriate intervention at this time. We will initiate medications, monitor medications and titrate to effect. Likely length of stay 1-3 days. Coding Level of Care Code Acute Splitting Machine Operator Helper for Sriram Davalos
[2019-06-01 14:00] VITALS: BP 140/90; PULSE 80; RESP 20; TEMP 37; O2SAT 98
[2019-06-01 19:48] VITALS: BP 134/79; PULSE 73; RESP 18; TEMP 36.7; O2SAT 98
[2019-06-01] MEDS: trazodone 50 mg Tablet PO (20:48)
[2019-06-01] MEDS: acetaminophen 325 mg Tablet 650 MG PO (20:49)
[2019-06-02 05:36] VITALS: BP 114/71; PULSE 69; RESP 16; TEMP 36.6; O2SAT 95
--- NOTE | 2019-06-02 08:07 | PC.NURSE ---
Nursing Note; Random inspection of clients room completed this morning. No contraband found.
[2019-06-02] MEDS: ciprofloxacin 500 mg Tablet PO (08:52)
[2019-06-02] MEDS: lithium carbonate 300 mg Capsule PO (08:52)
[2019-06-02] MEDS: gabapentin 100 mg Capsule PO (08:53)
[2019-06-02] MEDS: ARIPiprazole 10 mg Tablet PO (11:17)
--- NOTE | 2019-06-02 11:36 | PM.NDC ---
Diagnoses at Discharge Discharge Diagnosis (1) Homeless: Status: Chronic (2) Tobacco use disorder: Status: Chronic (3) Schizoaffective disorder, bipolar type: Status: Chronic (4) Adjustment disorder with mixed disturbance of emotions and conduct: Status: Acute (5) Malingering: Status: Acute Reason for Visit Reason for Visit: Reason For Visit: SI Brief History: HPI NPU History of Present Illness Yahir Kirkland is a 43 year old male who presents for evaluation today was limited contributory information for the circumstance. He is homeless and is reporting more or less that he is couch surfing post discharge. He initially very much focused on how medications need to be changed and very much downplays his addiction and those choices contribution in the circumstances. We discussed his medications at length and the symptoms he's been having and what changes will be possible. Specifically we discussed the possibility of increasing his lithium, he's requesting an increase in his Neurontin back to a dose he reports he was being given before, we discussed Abilify and whether or not it was effective and he had been actually using it prior to admission, as well as all his other medications. He reports that he ran out of the Abilify due to limitation in prescribing and we agree I would look into it and we would consider restarting the Abilify. We discussed however the importance of him following up with outpatient services and creating an environment where he can have success with outpatient treatment. We reviewed the chart for May and March and those hospitalizations. He reports that there've been no significant changes from a psychosocial standpoint in this period of time. Information from past hospitalizations: HPI NPU History of Present Illness Yahir Kirkland is a 43 year old male Chief complaint: History of present illness: Yahir Kirkland Presents for his 8 admission 2 months and second admission in 14 days.As is typical, Yahir does not provides much information though it becomes clear that his main intent and concern is lack of shoulder with rigid cold weather coming. The emergency room note is limited to: complaint: suicidal ideation and feels depressed Duration: constant History of same: Yes Relieving factors: none Exacerbating factors: other (homeless, lack of resources) Associated psychiatric symptoms: depression and suicidal ideation Associated symptoms: Reports depression and suicidal ideation Treatments prior to arrival: none If self harm: admits thoughts of self harm and has plan It is also noted that no lithium level was done at the time of admission. He was just in this unit for 4 days commencing on 05/06/2019. He was discharged on a combination of Abilify, lithium, and doxepin. The patient states that he likes his lithium because it helps him sleep. Noncompliance has been a problem in the past. He had been on Abilify and maintain a with his last injection being on April 27. His next scheduled injection would not be for another 9 days. He reported suicidal ideation but could not delineate a plan. Historically, he has utilized this complaint to gain access to the inpatient psychiatric unit for short periods of time. Mental health history: Discharge summary from 04/28/2019:Admission Diagnosis: Depression with suicidal ideation. Other Discharge Diagnoses: Chronic disorganized schizophrenia, mild. Psychosocial impairment. Homelessness. Noncompliance Procedures Performed: Initiation of Abilify maintena. Involvement in milieu. Discharge planning including follow-up for Abilify maintena. Brief History: The patient presents on a voluntary basis for his 6th admission in 12 months. He again vaguely reports suicidal ideation without intent or plan. He indicates he should be on Abilify maintena, suggesting the Aristada protocol, which our pharmacist says we don?t have and would have to be approved by the pharmacy general manager. He is homeless and it is cold and raining outside. Otherwise, he denies symptoms of depression. His suicidal ideation is passive only. He denies presence of auditory or visual hallucinations. There is no apparent imminent risk to self or others. Hospital Course: The patient is here mainly to get his Abilify maintena, which was administered on the . He is doing well his mood is good and he is not troubled with any auditory hallucinations. He is now competent, per my assessment today, to resume responsibility for life on the outside. Disposition: Patient will be discharged to self-care. He has an apartment and her roommate and his car will be out of impound tomorrow. Condition at Discharge: The patient is improved she has not hallucinating mental status is bright and cheerful thought processes are under aerated and he has not delusional he has sufficient judgment and insight to resume his self-care in a safe manner. New Medications: Aripiprazole Maintena (Abilify Maintena) 400 Mg Sitaer.vial 400 MG IM every thirty days for 30 Days, #1 VIAL 1 Refill Next injection of Abilify maintena 400 milligrams is due May 28. Discharge summary from his admission on 03/30/2019: Yahir Cancino presented on a voluntary basis for his fifth admission in 12 months. He vaguely reported suicidal ideation without intent or plan. He said that since his last admission here in November, he has not had any medication for the past month. He took the medications for a couple months and then stopped mainly out of financial reasons. 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 He does not give an estimate on how much he has been using. However he was charged with possession 2 weeks ago and has an upcoming court date. This is not supported by a search of public records. Patient states that he is looking for a residential drug treatment. However, the patient also states that one of his primary concerns is that he is homeless and winter is coming. Otherwise he denies symptoms of depression. His suicidal ideation is passive only. He denies presence of auditory or visual hallucinations. He has good hedonic capacity. There is no apparent imminent risk to self or others. Hospital Course: The patient stabilized rapidly. He was tearful when I saw him yesterday but his mood has brightened now that he has the psychosocial support of our discharge planners. He continues to deny any suicidal or homicidal ideation, plan or intent. He says he is ready to leave and he will be safe. Social history:The patient remains homeless. His social history otherwise has not changed since his last admission. Legal history:The past years, he has been arrested for possession of marijuana twice, failing to drive on the correct side of the road once, and once for stealing. Past medical history:Please see the emergency room nursing notes. No significant changes since his admission of 05/06/2019. Mental Status Exam: Appearance: hygiene is fair; no gross neurological deficits., gait is unremarkable; AIMS=0 Speech: Speech is of normal rate and rhythm and easily understood. Thought processes: Thought processes are [place]. Judgment is not adequate for safety. Associations: intact Psychotic processes: There is no indication of guarding or paranoia. There is no attention to the internal stimuli. Auditory and visual hallucinations are denied. Judgment: Insight is fair. Problem solving skills are Poor. Orientation: The patient is oriented to person, place time and situation. Memory: no deficits noted in immediate, intermediate, or remote spheres. Attention: The patient is alert and interpersonally engaged. Language: Verbalizations are coherent. Fund of knowledge: Fund of knowledge is poor. Affect/Mood: Affect is consistent with a Euthymic mood. He verbalized passive suicidal ideation Affective range Constricted Psychosis: perception unimpaired except through cognitive distortion and cognitive limitations; reality testing intact. Diagnoses:Adjustment disorder with disturbance of mood and conduct Assessment:A lithium level be acquired to see if he has been at all compliant with medication is noted that he has already been given lithium once this morning. The rest of his medications will be continued and will see how his suicidal ideations evolve based on changing his psychosocial circumstances. Treatment plan: Due to the psychiatric conditions and treatment listed in the Assessment and Plan - the patient requires continued hospitalization. Will provide a safe and therapeutic environment for patient.. Will continue inpatient treatment to allow for medication adjustment and monitoring. Will continue q15 min safety checks. Hospital day #1:Will continue current medications and monitor for medication side effects. A lithium level be acquired to see if he has been at all compliant with medication is noted that he has already been given lithium once this morning. The rest of his medications will be continued and will see how his suicidal ideations evolve based on changing his psychosocial circumstances. Monitor patient's mood, sleep, appetite, and behavior closely. Encourage patient to participate in individual and group therapeutic sessions on the alvarez. Estimated length of stay 5 days The expected benefits and potential side effects of patient's psychiatric medications were discussed with the patient. The patient understands and consents to treatment.CRITERIA FOR DISCHARGE: stable on medications and no longer an im Hospital Course Hospital Course Yahir presented to the emergency room with suicidal ideation and irritability much like his previous hospitalizations. He was admitted to the neuro psych unit and slowly acclimated to the individual, group and milieu therapies provided. We had very in-depth conversations about his current situation and how his lack of accountability to taking the medication as prescribed is likely contributing to the lack of effectiveness he feels from the medication. We restarted Abilify and he was not open to going back to the previous 15 mg dose. We are able to restart the lithium and Neurontin. His mood improved significantly but he was resistant to really embracing the impact of his addiction on his frequent presentations to the unit. Routine laboratory studies were obtained which were within normal limits except for a few outliers. Additionally a general medical evaluation was performed which was within normal limits in general and revealed no new acute processes. Discharge Summary At the time of discharge all lethality was denied. Mood and anxiety were reported as improved and there was no psychosis reported or noted. Patient reported a plan to follow-up with outpatient services per referrals. She endorsed a plan to avoid all drugs of abuse and explore some recovery oriented aftercare. Maximum benefit from inpatient hospitalization was achieved and the patient was discharged. Involuntary Hold Information 96 Hour Hold: 96 Hour Involuntary Admission: Yes 96 Hour Hold Ending Date: 06/06/19 96 Hour Hold Ending Time: 01:25 Mental Status Exam MSE Comments: This is an obese white male with adequate dress grooming and eye contact. No abnormal movements except for improving psychomotor retardation. Cooperative with exam in no acute distress. Speech was less decreased rate and volume. Mood described as a little better affect less subdued. Thought process organized. Thought content: Patient denied any suicidal or homicidal ideation, there were no delusions reported or noted, he denied any auditory visual hallucinations. Attention and concentration were intact and memory appeared mostly unreliable but none were formally tested. He is alert and oriented x3. Insight and judgment are limited but improving. Discharge Data Vitals: Last Vital Signs Temp 98 F 06/02/19 05:36 Pulse 69 06/02/19 05:36 Resp 16 06/02/19 05:36 BP 114/71 06/02/19 05:36 Pulse Ox 95 06/02/19 05:36 Discharge Plan Discharge Patient Disposition: Home, Self-Care Condition: Stable Prescriptions: Discontinued aripiprazole 30 mg Tablet 15 mg PO DAILY Qty: 30 RF: 2 No Action aripiprazole [Abilify] 10 mg tablet 10 mg PO DAILY Qty: 30 RF: 0 lithium carbonate 300 mg capsule 300 mg PO BID Qty: 60 RF: 0 gabapentin 100 mg capsule 100 mg PO TID Qty: 90 RF: 0 trazodone 50 mg tablet 50 mg PO BEDTIME PRN (Reason: Sleep) Qty: 30 RF: 0 methocarbamol [Robaxin-750] 750 mg tablet 750 mg PO Q8H Qty: 10 RF: 0 ibuprofen 800 mg tablet 800 mg PO Q8H PRN (Reason: pain) Qty: 20 RF: 0 loperamide [Imodium A-D] 2 mg capsule 2 mg PO Q4H PRN (Reason: loose stool) Qty: 14 RF: 0 lisinopril 10 mg tablet 10 mg PO DAILY Qty: 14 RF: 0 Discharge Orders: Discharge Order (Routine); Ordered 06/02/19 Ordered By: Jorge L Ceron Referrals: Janee Williamson APRN [Nurse Practitioner] - 06/05/19 2:00 pm Kyree Naqvi MD [Primary Care Provider] - Discharge Diet: Regular Discharge Activity: Resume usual activity Patient Instructions: Gabapentin (By mouth), Aripiprazole (By mouth) Activity Restrictions/Additional Instructions: Do consider going to [facility] as soon as you get your legal issue resolved. [facility] [place] [address] [facility] [phone] Discharge Date/Time: 06/02/19 13:05 Discharge Attestations NPU Time Spent in Discharge Care*: less than 30 min Specific Discharge Activities: Specific discharge activities: educating patient, discussing with telehealth case manager/social workers/dc planners, documenting/other paperwork and evaluating patient/reviewing data Coding Level of Care Code Acute Welding Machine Operator Arc for [facility] Fwd Diagnoses Homeless Z59.0 Tobacco use disorder F17.200 Schizoaffective disorder, bipolar type F25.0 Adjustment disorder with mixed disturbance of emotions and conduct F43.25 Malingering Z76.5
[2019-06-02 12:48] VITALS: BP 114/71; PULSE 69; RESP 16; TEMP 36.6; O2SAT 95
--- NOTE | 2019-06-02 17:05 | PC.NURSE ---
Housekeeping; Housekeeping came down to clean this patients room after he was discharged from the hospital. Client left an empty can of chewing tobacco in the bed linens. Staff member did a safety sweep of his room earlier in the day and did not find any contraband in his room. Client must have had it on his person and left in his room prior to his discharge.
== END 2019-06-02 13:05 | disposition home or self-care (01) | DRG 881 ==
LOC: ER 03:43 → NP 03:44
PROVIDERS: Nurse Practitioner Family; Admitting Provider Psychiatry & Neurology Psychiatry; Emergency Provider Emergency Medicine; PCP Urology; Visit Provider Psychiatry & Neurology Psychiatry
DX: F32.9 Major depressive disorder, single episode, unspecified (principal); R45.851 Suicidal ideations; Z59.0 Homelessness; F20.1 Disorganized schizophrenia; Z91.14 Patient's other noncompliance with medication regimen; F43.25 Adjustment disorder with mixed disturbance of emotions and conduct; F17.210 Nicotine dependence, cigarettes, uncomplicated
CPT/HCPCS: 12345; 36415; 80053; 80156; 80164; 80178; 80185; 80307; 81003; 84443; 85025; 99284; A9270

== ENCOUNTER → 2019-06-05 13:44 | Outpatient (BNVA) | payer MEDICAID, SELFPAY | PROVIDERS: PCP Urology; Visit Provider Nurse Practitioner Psychiatric/Mental Health | DX: F15.10 Other stimulant abuse, uncomplicated (principal); Z59.0 Homelessness; F25.0 Schizoaffective disorder, bipolar type; F17.200 Nicotine dependence, unspecified, uncomplicated; Z51.81 Encounter for therapeutic drug level monitoring; Z79.899 Other long term (current) drug therapy | CPT/HCPCS: 99204 ==

== ENCOUNTER 2019-06-07 06:47 | Emergency (ER) | payer MEDICAID, SELFPAY ==
[2019-06-07 06:54] VITALS: BP 160/91; PULSE 88; RESP 18; TEMP 36.6; O2SAT 99; BMI 29.8
--- NOTE | 2019-06-07 07:01 | W.ED.BACK ---
HPI - Back Pain/Injury General: Chief Complaint: Back Pain/Injury Stated Complaint: Side pain on both sides Time Seen by Provider: 06/07/19 07:01 Source: patient Mode of arrival: ambulatory Limitations: no limitations History of Present Illness: HPI Narrative: Patient here today with complaints of back pain/kidney pain. Patient thinks he has a urinary tract infection. Patient has a history of previous urinary tract infections. Patient reports that he is getting ready to go into treatment for his methamphetamine use. Patient is in good spirits and is excited about completing treatment. Patient reports some back pain and is requesting medication for his pain. Patient appears well. Patient appears in mild to no pain. MD elicited complaint: back pain Review of Systems General: Reports: 10 or more systems reviewed and unremarkable except in HPI and below Musc: Reports: back pain PFSH ED PFSH: Statuses (acute, chronic, etc) shown below reflect problem list status as previously entered and may not be historically accurate Medical History (Updated 06/07/19 @ 07:48 by KEISHA La) Adjustment disorder with mixed disturbance of emotions and conduct (Acute) Psychotic disorder (Acute) Social History (Updated 06/05/19 @ 14:02 by An Serrato LPN) Smoking and tobacco status: current every day smoker cigarettes Packs smoked per day: 1 Years cigarettes smoked: 1 Quit status (tobacco): not considering quitting Second hand smoke exposure: No Physical Exam Const: COMMON NORMALS: no apparent distress and oriented x3 GENERAL APPEARANCE: cooperative HENMT: COMMON NORMALS: normocephalic, external ears normal, EAC's normal, TM's normal bilaterally and external nose normal HEAD & SCALP: normal to inspection and normocephalic FACE & SINUS: normal facial exam NOSE: external nose normal GENERAL EAR: hearing not grossly impaired EXTERNAL EAR: Yes external ears normal EXTERNAL AUDITORY CANAL: EAC's normal TYMPANIC MEMBRANE: TM's normal bilaterally MOUTH: oral and palatal mucosa normal THROAT: posterior oropharynx normal Eye: COMMON NORMALS: PERRL and EOMs intact bilaterally PUPIL: Yes PERRL Neck/C-Spine: COMMON NORMALS: full ROM and no lymphadenopathy Lymph: LYMPHATIC: no lymphedema noted Chest: COMMONS NORMALS: inspection of chest normal and palpation of chest normal Resp: COMMON NORMALS: normal respiratory effort and clear to auscultation bilaterally AUSCULTATION: clear to auscultation bilaterally Cardio: COMMON NORMALS: regular rate and regular rhythm RATE: regular rate RHYTHM: regular rhythm GI: COMMON NORMALS: normal to inspection, nondistended, normoactive bowel sounds and non-tender : COMMON NORMALS: Yes no CVA tenderness BLADDER/KIDNEY EXAM: Yes no CVA tenderness Back/Pelvis: COMMON NORMALS: no CVA tenderness LUMBAR SPINE/LOWER BACK: Yes paraspinal muscle tenderness Extremity: COMMON NORMALS: normal to inspection GENERAL: No edema Neuro: COMMON NORMALS: oriented x3, moves all extremities and no focal motor deficits Psych: COMMON NORMALS: mental status grossly normal and cooperative Skin: COMMON NORMALS: no rashes or lesions noted GENERAL SKIN EXAM: no rashes or lesions noted Course Vital Signs: Vital signs: Vital Signs Temperature 97.8 F 06/07/19 06:54 Pulse Rate 88 06/07/19 06:54 Respiratory Rate 18 06/07/19 06:54 Blood Pressure 160/91 06/07/19 06:54 Pulse Oximetry 95 06/07/19 07:08 MDM - Back Pain/Injury MDM Narrative: Medical decision making narrative: Patient comes in today with complaints of back pain. Patient states that he is having some urinary difficulty and believes the back pain is due to that. Patient has had frequent urinary tract infections. Exam notes some mild CVA tenderness bilaterally and muscle tenderness on palpation. No vertebral tenderness is noted. Negative leg lift test. Differential diagnosis includes pyelonephritis, prostatitis, UTI, lumbar strain, facet arthropathy, intervertebral disc disease. Urine was insignificant. Reviewed exam with patient recommended continued treatment with the Cipro for another 7 days and ibuprofen as needed for pain. Encourage plenty of fluids and follow-up with primary care. Patient reports understanding agreed to plan. Lab Data: Labs: Lab Results 06/07/19 Range/Units 07:27 Urine Color Yellow (Yellow) Urine Appearance Clear (CLEAR) Urine pH 6.0 (5-7) Ur Specific Gravit y 1.015 (1.005-1.030) Urine Protein Neg (Negative) Urine Glucose (UA) Norm (Normal) Urine Ketones Negative (Negative) Urine Occult Blood Neg (Negative) Urine Nitrate Negative (Negative) Urine Bilirubin Neg (NEGATIVE) Urine Urobilinogen Norm (Negative) mg/dL Ur Leukocyte Lisa ase Negative (Negative) Urine RBC TNP Urine WBC TNP Ur Squamous Epith Cells TNP Urine Bacteria TNP Discharge Plan Discharge Patient Disposition: Home, Self-Care Clinical Impression: Dysuria Condition: Stable Prescriptions: New Cipro 500 mg tablet 500 mg PO BID Qty: 14 RF: 0 ibuprofen 800 mg tablet 800 mg PO Q8H PRN (Reason: pain) Qty: 20 RF: 0 Discontinued naproxen [EC-Naprosyn] 500 mg tablet,delayed release (DR/EC) 500 mg PO BID PRN (Reason: pain) Qty: 20 RF: 0 ciprofloxacin HCl 500 mg tablet 500 mg PO BID Qty: 10 RF: 0 No Action trazodone 50 mg Tablet 50 mg PO BEDTIME PRN (Reason: Sleep) Qty: 15 RF: 1 lithium carbonate 300 mg Capsule 300 mg PO BID Qty: 60 RF: 2 gabapentin 100 mg Capsule 100 mg PO TID Qty: 90 RF: 0 aripiprazole 10 mg Tablet 10 mg PO DAILY 30 Days Qty: 30 RF: 1 gabapentin 100 mg Capsule 100 mg PO TID 30 Days Qty: 90 RF: 0 Discharge Orders: Discharge Order (Routine); Ordered 06/07/19 Ordered By: Roberth Jim Referrals: Kyree Naqvi MD [Primary Care Provider] - Discharge Diet: Usual diet Discharge Activity: Increase activity as tolerated Patient Instructions: Dysuria (ED) Activity Restrictions/Additional Instructions: Drink plenty of water Activity as tolerated Healthy diet Follow-up with primary care in one week Return to ER for high fever or new concerns Coding Level of Care Code ED Senior Caregiver for Sriram Davalos Exam Problem Focused
[2019-06-07 07:08] VITALS: O2SAT 95
[2019-06-07] MEDS: ketorolac 30 mg/mL INJ IM (07:31)
[2019-06-07 07:39] LABS: Bilirubin Urine Neg (NEGATIVE); Blood Urine Neg (Negative); Glucose Urine UA Norm (Normal); Ketones Urine Negative (Negative); Leukocyte Esterase Urine Negative (Negative); Nitrate Urine Negative (Negative); Protein Urine Neg (Negative); Specific Gravity, Urine 1.015 (1.005-1.030); Urine Appearance Clear (CLEAR); Urine Color Yellow (Yellow); Urobilinogen Urine Norm (Negative)
[2019-06-07 07:40] LABS: Add Urine Culture? No
[2019-06-07 07:51] VITALS: BP 160/91; PULSE 81; O2SAT 92
--- NOTE | 2019-06-11 09:58 | DCPLANNER ---
Addendum entered by Deepti Hutchins 06/11/19 10:20: Bita from Dr. Castanon office called rn case mgr and was told that patient would need to follow up with his primary care physician. Clinic can not reach patient due to not answering phone. Original Note: construction engineering manager had message to schedule a follow up appointment for patient with Dr. Naqvi. construction engineering manager called the office of Dr. Naqvi, spoke with Bita, gave clinic patients information. construction engineering manager was told that patients information would be printed and given to Bernie for review. Clinic will call patient with appointment information. construction engineering manager will call for appointment information.
== END 2019-06-07 07:51 | disposition home or self-care (01) ==
PROVIDERS: Emergency Provider Nurse Practitioner Family; PCP Urology
DX: R30.0 Dysuria (principal); F17.210 Nicotine dependence, cigarettes, uncomplicated
CPT/HCPCS: 81001; 96372; 99282; 99283; A9270; J1885

== ENCOUNTER 2019-06-08 16:38 | Emergency (ER) | payer MEDICAID, SELFPAY ==
[2019-06-08 16:59] VITALS: BP 152/95; PULSE 93; RESP 18; TEMP 36.6; O2SAT 97; BMI 29.9
--- NOTE | 2019-06-08 17:39 | PC.NURSE ---
PT LEFT PRIOR TO NURSES ASSESSMENT. STOPPED NURSE IN [place] AND STATED HE WAS GOING TO LEAVE. NURSE ASKED PT TO WAIT A FEW MINUTES TO NOTIFY PROVIDER. PT STATES SHE LOOKED AT IT AND SAID THEY WEREN'T GOING TO DO ANYTHING. PT THEN STATES, YOU THINK THEY'LL GIVE ME SOMETHING FOR IT? EXPLAINED TO PT THAT I COULD NOT SPEAK FOR HIS PROVIDER. SEE PA'S ASSESSMENT .
--- NOTE | 2019-06-08 17:40 | ED_ITS ---
HPI - Extremity Problem General: Chief complaint: Extremity Injury, Lower Stated complaint: toe pain on left foot Time Seen by Provider: 06/08/19 17:27 Source: patient Mode of arrival: ambulatory Limitations: no limitations History of Present Illness: HPI Narrative: Patient is a 43-year-old male who presents to ED today with a spot on his second left toe that has bothering him for a few weeks now. MD Complaint: extremity pain Onset (ago): week(s) Pain Consistency: constant Location: left and toe Exacerbating factors: other (walking) Associated symptoms: Deny fever(s) or rash Review of Systems Const: Denies: fever or chills Musc: Reports: extremity pain (L toe pain); Denies: neck pain, back pain, extremity swelling, joint pain, joint swelling, redness or joint warmth Skin/Breast: Denies: rash PFSH ED PFSH: Statuses (acute, chronic, etc) shown below reflect problem list status as previously entered and may not be historically accurate Medical History (Updated 06/08/19 @ 17:44 by WYATT Knutson) Adjustment disorder with mixed disturbance of emotions and conduct (Acute) Psychotic disorder (Acute) Social History (Updated 06/05/19 @ 14:02 by An Serrato LPN) Smoking and tobacco status: current every day smoker cigarettes Packs smoked per day: 1 Years cigarettes smoked: 1 Quit status (tobacco): not considering quitting Second hand smoke exposure: No Physical Exam Const: COMMON NORMALS: no apparent distress, oriented x3, no limitations and alert Extremity: OTHER: pt has a few callused areas throughout his L foot; he complains of pain to the distal tip of his second toe that is callused and appears to have a small blood blister; no redness/swelling/drainage Neuro: COMMON NORMALS: oriented x3 SENSORIUM/ORIENTATION: Yes alert Course Vital Signs: Vital signs: Vital Signs Temperature 97.8 F 06/08/19 16:59 Pulse Rate 93 06/08/19 16:59 Respiratory Rate 18 06/08/19 16:59 Blood Pressure 152/95 06/08/19 16:59 Pulse Oximetry 97 06/08/19 16:59 MDM - Extremity (Nontraumatic) MDM Narrative: Medical decision making narrative: site does not look infected; he mentioned me cutting it out but pt overall has poor hygiene and I told him me excising something on his foot would increase chance of infection; there is no active infection currently; recommend keeping area clean and dry, discussed foot care, adequate shoe wear; he is stable for discharge Discharge Plan Discharge Patient Disposition: Left Against Medical Advice Clinical Impression: Callus of foot Prescriptions: No Action trazodone 50 mg Tablet 50 mg PO BEDTIME PRN (Reason: Sleep) Qty: 15 RF: 1 lithium carbonate 300 mg Capsule 300 mg PO BID Qty: 60 RF: 2 gabapentin 100 mg Capsule 100 mg PO TID Qty: 90 RF: 0 aripiprazole 10 mg Tablet 10 mg PO DAILY 30 Days Qty: 30 RF: 1 gabapentin 100 mg Capsule 100 mg PO TID 30 Days Qty: 90 RF: 0 Cipro 500 mg tablet 500 mg PO BID Qty: 14 RF: 0 ibuprofen 800 mg tablet 800 mg PO Q8H PRN (Reason: pain) Qty: 20 RF: 0 Interventions: ED Discharge Assessment Last Done: 06/08/19 17:43 Discharge Date/Time: 06/08/19 17:43 Coding Level of Care Code ED Blueprint Cutter for Sriram Davalos
== END 2019-06-08 17:43 | disposition left against medical advice (07) ==
PROVIDERS: Emergency Provider Physician Assistant; PCP Urology
DX: L84 Corns and callosities (principal)
CPT/HCPCS: 99281

== ENCOUNTER 2019-06-11 23:12 | Emergency (ER) | payer MEDICAID, SELFPAY ==
[2019-06-11 23:16] VITALS: BP 135/79; PULSE 80; RESP 16; TEMP 36.7; O2SAT 99; BMI 30.7
--- NOTE | 2019-06-12 00:46 | ED_ITS ---
Entered by Jeanna Hernandez, acting as scribe for Mora Canseco MD Jun 11, 2019 23:12 HPI - Dental/Oral General: Chief complaint: Dental/Oral Stated complaint: DENTAL PAIN Time Seen by Provider: 06/12/19 00:02 History of Present Illness: HPI Narrative: 43 yo m came to the er for dental pain. He has been seen in the ER multiple times for dental pain. Patient last patient bikes week ago. He states he has not followed up with a doctor. He has had no problems swallowing or breathing. Complaint: tooth pain Onset (ago): day(s) (today) Duration: constant Relieving factors: nothing Exacerbating factors: nothing Associated symptoms: Reports no associated symptoms; Denies fever(s) Review of Systems General: Reports: other (negative unless marked) Const: Denies: fever, chills, body aches or change in appetite Eyes: Denies: blurry vision or eye discomfort ENMT: Reports: dental pain; Denies: throat pain Card: Denies: chest pain Resp: Denies: shortness of breath GI: Denies: abdominal pain, nausea, vomiting or diarrhea : Denies: painful urination Musc: Denies: neck pain or back pain Skin/Breast: Denies: rash Neuro: Denies: headache Psych: Denies: depression Bull/Lymph: Denies: easy bruising All/Imm: Denies: hives PFSH ED PFSH: Statuses (acute, chronic, etc) shown below reflect problem list status as previously entered and may not be historically accurate Medical History (Updated 06/12/19 @ 00:48 by Mora Canseco MD) Adjustment disorder with mixed disturbance of emotions and conduct Psychotic disorder Social History (Updated 06/05/19 @ 14:02 by An Serrato LPN) Smoking and tobacco status: current every day smoker cigarettes Packs smoked per day: 1 Years cigarettes smoked: 1 Quit status (tobacco): not considering quitting Second hand smoke exposure: No Physical Exam Const: COMMON NORMALS: no apparent distress, oriented x3 and healthy appearing HENMT: COMMON NORMALS: normocephalic and head/scalp atraumatic HEAD & SCALP: normocephalic and atraumatic OTHER: Patient has slight dental caries with no abscess or trismus Eye: COMMON NORMALS: PERRL and EOMs intact bilaterally PUPIL: Yes PERRL Neck/C-Spine: COMMON NORMALS: full ROM and supple Chest: COMMONS NORMALS: inspection of chest normal and palpation of chest normal Resp: COMMON NORMALS: normal respiratory effort, no retractions, no use of accessory muscles and clear to auscultation bilaterally AUSCULTATION: clear to auscultation bilaterally Cardio: COMMON NORMALS: regular rate, regular rhythm and no murmurs RATE: regular rate RHYTHM: regular rhythm GI: COMMON NORMALS: normal to inspection, nondistended, normoactive bowel sounds, soft to palpation, non-tender and no masses PALPATION: Yes soft Extremity: COMMON NORMALS: normal to inspection and full ROM Neuro: COMMON NORMALS: oriented x3, moves all extremities and no focal motor deficits Psych: COMMON NORMALS: mental status grossly normal, thought process normal and cooperative THOUGHT PROCESS: normal thought process Skin: COMMON NORMALS: no rashes or lesions noted and no wounds GENERAL SKIN EXAM: no rashes or lesions noted Course Vital Signs: Vital signs: Vital Signs Temperature 98.1 F 06/11/19 23:16 Pulse Rate 80 06/11/19 23:16 Respiratory Rate 16 06/11/19 23:16 Blood Pressure 135/79 06/11/19 23:16 Pulse Oximetry 99 06/11/19 23:16 MDM - Dental/Oral MDM Narrative: Medical decision making narrative: Patient presents here with dental pain. Patient's exam here is benign he has no abscess. Patient is to follow-up with primary care doctor in 3 to 5 days. Patient given Naprosyn here. Discharge Plan Discharge Patient Disposition: Home, Self-Care Clinical Impression: Toothache Condition: Stable Prescriptions: No Action lithium carbonate 300 mg capsule 300 mg PO BID Qty: 60 RF: 2 trazodone 50 mg Tablet 50 mg PO BEDTIME PRN (Reason: Sleep) Qty: 15 RF: 1 gabapentin 100 mg Capsule 100 mg PO TID Qty: 90 RF: 0 aripiprazole 10 mg Tablet 10 mg PO DAILY 30 Days Qty: 30 RF: 1 gabapentin 100 mg Capsule 100 mg PO TID 30 Days Qty: 90 RF: 0 Cipro 500 mg tablet 500 mg PO BID Qty: 14 RF: 0 ibuprofen 800 mg tablet 800 mg PO Q8H PRN (Reason: pain) Qty: 20 RF: 0 Referrals: Kyree Naqvi MD [Primary Care Provider] - Discharge Diet: Advance as tolerated Discharge Activity: Resume usual activity Patient Instructions: Toothache (ED) Coding Level of Care Code ED Social Media Sr Strategy Manager for Chg Fwd The documentation recorded by the David banks Stephanie Lyn, accurately reflects the service I personally performed and the decisions made by , Mora Canseco MD Jun 11, 2019 23:12
[2019-06-12] MEDS: naproxen 500 mg Tablet PO (01:22)
[2019-06-12 01:26] VITALS: RESP 16
== END 2019-06-12 01:26 | disposition home or self-care (01) ==
PROVIDERS: Emergency Provider Emergency Medicine; PCP Urology
DX: K08.89 Other specified disorders of teeth and supporting structures (principal); F17.210 Nicotine dependence, cigarettes, uncomplicated
CPT/HCPCS: 99281; 99283

== ENCOUNTER 2019-06-14 00:33 | Emergency (ER) | payer MEDICAID, SELFPAY ==
--- NOTE | 2019-06-14 00:37 | ED_ITS ---
Entered by Sheela Gar, acting as scribe for Mora Canseco MD HPI - General Adult General: Chief complaint: General Medical Stated complaint: HEADACHE, CONGESTION Time Seen by Provider: 06/14/19 00:34 Source: patient Mode of arrival: ambulatory History of Present Illness: HPI narrative: 43 y/o male presents to the ED with complaint of cough and FERRERA. Pt states he has had nasal congestion for about 2 weeks. He denies fever or productive cough. MD complaint: Cough, FERRERA Onset (ago): week(s) (2) Location: head Severity: similar to prior episodes Relieving factors: none Associated symptoms: Reports headache(s); Deny chest pain, dyspnea, nausea, rash or vomiting Review of Systems Const: Denies: fever, chills, body aches or change in appetite Eyes: Denies: blurry vision or eye discomfort ENMT: Denies: throat pain or dental pain Card: Denies: chest pain Resp: Reports: non-productive cough; Denies: shortness of breath GI: Denies: abdominal pain, nausea, vomiting or diarrhea : Denies: painful urination Musc: Denies: neck pain or back pain Skin/Breast: Denies: rash Neuro: Reports: headache Psych: Denies: depression Bull/Lymph: Denies: easy bruising All/Imm: Denies: hives PFSH ED PFSH: Statuses (acute, chronic, etc) shown below reflect problem list status as previously entered and may not be historically accurate Medical History (Updated 06/14/19 @ 01:36 by Mora Canseco MD) Adjustment disorder with mixed disturbance of emotions and conduct Psychotic disorder Social History (Updated 06/05/19 @ 14:02 by An Serrato LPN) Smoking and tobacco status: current every day smoker cigarettes Packs smoked per day: 1 Years cigarettes smoked: 1 Quit status (tobacco): not considering quitting Second hand smoke exposure: No Physical Exam Const: COMMON NORMALS: no apparent distress, oriented x3 and healthy appearing HENMT: COMMON NORMALS: normocephalic and head/scalp atraumatic HEAD & SCALP: normocephalic and atraumatic Eye: COMMON NORMALS: PERRL and EOMs intact bilaterally PUPIL: Yes PERRL Neck/C-Spine: COMMON NORMALS: full ROM and supple Chest: COMMONS NORMALS: inspection of chest normal and palpation of chest normal Resp: COMMON NORMALS: normal respiratory effort, no retractions, no use of accessory muscles and clear to auscultation bilaterally AUSCULTATION: clear to auscultation bilaterally Cardio: COMMON NORMALS: regular rate, regular rhythm and no murmurs RATE: regular rate RHYTHM: regular rhythm GI: COMMON NORMALS: normal to inspection, nondistended, normoactive bowel sounds, soft to palpation, non-tender and no masses PALPATION: Yes soft Extremity: COMMON NORMALS: normal to inspection and full ROM Neuro: COMMON NORMALS: oriented x3, moves all extremities and no focal motor deficits Psych: COMMON NORMALS: mental status grossly normal, thought process normal and cooperative THOUGHT PROCESS: normal thought process Skin: COMMON NORMALS: no rashes or lesions noted and no wounds GENERAL SKIN EXAM: no rashes or lesions noted Course Vital Signs: Vital signs: Vital Signs Temperature 97.8 F 06/14/19 00:38 Pulse Rate 88 06/14/19 01:54 Respiratory Rate 18 06/14/19 01:54 Blood Pressure 129/91 06/14/19 01:54 Pulse Oximetry 98 06/14/19 01:54 MDM - General Adult MDM Narrative: Medical decision making narrative: Patient presents here with cough and congestion is likely an upper respiratory infection. Patient's x-ray here is negative. Patient is stable for discharge and is to follow-up with primary care doctor in 3 to 5 days return if worsening. Imaging Data^: CXR: Attestation: I personally reviewed and interpreted this imaging study as follows: My impression: no acute abnormality Discharge Plan Discharge Patient Disposition: Home, Self-Care Clinical Impression: Acute upper respiratory infection Condition: Stable Prescriptions: No Action lithium carbonate 300 mg capsule 300 mg PO BID Qty: 60 RF: 2 trazodone 50 mg Tablet 50 mg PO BEDTIME PRN (Reason: Sleep) Qty: 15 RF: 1 gabapentin 100 mg Capsule 100 mg PO TID Qty: 90 RF: 0 aripiprazole 10 mg Tablet 10 mg PO DAILY 30 Days Qty: 30 RF: 1 gabapentin 100 mg Capsule 100 mg PO TID 30 Days Qty: 90 RF: 0 ibuprofen 800 mg tablet 800 mg PO Q8H PRN (Reason: pain) Qty: 20 RF: 0 Discharge Orders: Discharge Order (Routine); Ordered 06/14/19 Ordered By: Mora Canseco Referrals: Kyree Naqvi MD [Primary Care Provider] - Discharge Diet: Advance as tolerated Discharge Activity: Resume usual activity Patient Instructions: Upper Respiratory Infection (ED) Discharge Date/Time: 06/14/19 01:55 Coding Level of Care Code ED Steel Buffer for Chg Fwd Exam Problem Focused The documentation recorded by the Cong banks Ashley, accurately reflects the service I personally performed and the decisions made by Harleen bui Korby, MD Jun 14, 2019 00:33
[2019-06-14 00:38] VITALS: BP 124/79; PULSE 82; RESP 16; TEMP 36.6; O2SAT 92; BMI 29.8
--- NOTE | 2019-06-14 00:38 | XR_ITS ---
WS: [id number] PROCEDURE: XR chest 2V* [id number] CLINICAL INFORMATION: cough COMPARISON: May 30, 2019 FINDINGS: Heart: Normal cardiac silhouette. Sternotomy. CABG. Lungs: Lungs are clear. No consolidation or pleural fluid. Mild chronic emphysematous changes. Bones: Mild thoracic kyphosis. Chronic anterior wedging mid thoracic spine. XR/XR chest 2V* [id number] IMPRESSION: 1. Sternotomy with CABG. Normal cardiac silhouette. 2. No acute pulmonary infiltrates. No focal pneumonia.
[2019-06-14] MEDS: dexamethasone 10 mg/mL INJ IM (00:48)
[2019-06-14 01:54] VITALS: BP 129/91; PULSE 88; RESP 18; O2SAT 98
--- NOTE | 2019-06-15 09:53 | DCPLANNER ---
certified wellness program manager had message to schedule a follow up appointment for patient with Dr. Naqvi. certified wellness program manager called the office of Dr. Naqvi, spoke with Talia, was told that patient will need to call and schedule the appointment. Patient does not have a phone number that is good to be able to reach patient on to give appointment information. Patient no shows his appointments.
== END 2019-06-14 01:55 | disposition home or self-care (01) ==
PROVIDERS: Emergency Provider Emergency Medicine; PCP Urology
DX: J06.9 Acute upper respiratory infection, unspecified (principal); F17.210 Nicotine dependence, cigarettes, uncomplicated
CPT/HCPCS: 71046; 96372; 99281; 99283; J1100

== ENCOUNTER 2019-06-17 09:21 | Emergency (ER) | payer MEDICAID, SELFPAY | END 2019-06-17 11:25 | disposition home or self-care (01) | LOC: ER 06-26 14:53 | PROVIDERS: Emergency Provider Physician Assistant | DX: S20.219A Contusion of unspecified front wall of thorax, initial encounter (principal); X58.XXXA Exposure to other specified factors, initial encounter; R07.9 Chest pain, unspecified; F17.210 Nicotine dependence, cigarettes, uncomplicated ==

== ENCOUNTER 2019-06-17 09:21 | Emergency (ER) | payer MEDICAID, SELFPAY ==
[2019-06-17 09:24] VITALS: BP 141/91; PULSE 101; RESP 17; TEMP 36.6; O2SAT 96; BMI 29.8
--- NOTE | 2019-06-17 09:33 | ED_ITS ---
HPI - SOB/Dyspnea General: Chief Complaint: Shortness of Breath/Dyspnea Stated Complaint: Congested Time Seen by Provider: 06/17/19 09:30 History of Present Illness: HPI Narrative: Patient is a 43-year-old male comes to the ED with upper respiratory symptoms. He has had a nonproductive cough and nasal congestion for the past week. Patient has been seen here and diagnosed with upper respiratory infection several days ago.Patient is complaining of some neck muscle pain started in the past couple days. He also is complaining of some dysuria started a couple days ago and he says his urine dark. Denies any fevers, chest pain, abdominal pain, nausea, vomiting, bowel symptoms. Associated symptoms: Deny abdominal pain, chest pain, fever(s), nausea, orthopnea, palpitations or vomiting Review of Systems Const: Denies: fever, chills or fatigue Eyes: Denies: change in vision or eye discomfort ENMT: Denies: throat pain, painful swallowing, nasal discharge or nasal congestion Card: Denies: chest pain, palpitations, edema, swelling of feet/ankles, shortness of breath on exertion or shortness of breath when lying down Resp: Reports: shortness of breath and non-productive cough; Denies: productive cough GI: Denies: abdominal pain, nausea, vomiting, diarrhea, constipation or blood in stool : Reports: painful urination; Denies: flank pain, difficulty urinating or blood in urine Musc: Reports: neck pain; Denies: back pain or extremity swelling Skin/Breast: Denies: rash or new lesion Neuro: Denies: headache, numbness in extremities or weakness in extremities [facility] ED PFSH: Medical History Adjustment disorder with mixed disturbance of emotions and conduct Psychotic disorder Social History Smoking and tobacco status: current every day smoker cigarettes Packs smoked per day: 1 Years cigarettes smoked: 1 Quit status (tobacco): not considering quitting Second hand smoke exposure: No Physical Exam Const: COMMON NORMALS: oriented x3 HENMT: COMMON NORMALS: normocephalic HEAD & SCALP: normocephalic MOUTH: oral and palatal mucosa normal THROAT: posterior oropharynx normal and uvula midline Neck/C-Spine: COMMON NORMALS: supple GENERAL: Yes normal visual inspection CERVICAL SPINE: Yes trapezius muscle tenderness left Resp: COMMON NORMALS: normal respiratory effort, no retractions, no use of accessory muscles and clear to auscultation bilaterally AUSCULTATION: clear to auscultation bilaterally Cardio: COMMON NORMALS: regular rate, regular rhythm, S1 normal heart sound, S2 normal heart sound, no gallops, no clicks, no murmurs and peripheral pulses 2+ throughout RATE: regular rate RHYTHM: regular rhythm HEART SOUNDS: S1 normal and S2 normal PERIPHERAL PULSES: pulses 2+ throughout GI: COMMON NORMALS: normal to inspection, nondistended, normoactive bowel sounds, soft to palpation, non-tender and no masses PALPATION: Yes soft : COMMON NORMALS: Yes no CVA tenderness BLADDER/KIDNEY EXAM: Yes no CVA tenderness Back/Pelvis: COMMON NORMALS: no CVA tenderness Extremity: COMMON NORMALS: normal to inspection Neuro: COMMON NORMALS: oriented x3 and moves all extremities Skin: GENERAL SKIN EXAM: dry skin Course Vital Signs: Vital signs: Vital Signs Temperature 98.2 F 06/17/19 09:39 Pulse Rate 82 06/17/19 11:24 Respiratory Rate 16 06/17/19 11:24 Blood Pressure 152/93 06/17/19 11:24 Pulse Oximetry 96 06/17/19 11:24 MDM - SOB/Dyspnea Lab Data: Attestation: I reviewed the patient's lab results. Labs: Lab Results 06/17/19 Range/Units 10:47 Urine Color Yellow (Yellow) Urine Appearance Clear (CLEAR) Urine pH 6.5 (5-7) Ur Specific Gravit y 1.010 (1.005-1.030) Urine Protein Neg (Negative) Urine Glucose (UA) Norm (Normal) Urine Ketones Negative (Negative) Urine Occult Blood Neg (Negative) Urine Nitrate Negative (Negative) Urine Bilirubin Neg (NEGATIVE) Urine Urobilinogen Norm (Negative) mg/dL Ur Leukocyte Lisa ase Negative (Negative) Urine RBC TNP Urine WBC TNP Ur Squamous Epith Cells TNP Urine Bacteria TNP Imaging Data^: CXR: Attestation: I personally reviewed and interpreted this imaging study as follows: Radiologist's impression: [address] [address] XRay Report Signed Patient: IsaelYahir Vazquez Unit #: [id number] : 1975 Age/Sex: 43 / M ADM Date: 06/17/19 Loc: ER Room/Bed: Attending Dr: Ordering Provider/Ordering MD: Pavel Rogers Date of Service: 06/17/19 Procedure(s): XR chest 1V portable [id number] Accession Number(s): [id number] Report Number: [id number] WS: [id number] XR chest 1V portable [id number] REASON FOR EXAM: cough and SOB FINDINGS: Sternotomy findings are identified with prior coronary bypass changes. This study was compared to June 14, 2019 with no interval changes. The peripheral lung show no active infiltrates no pneumonia or pulmonary edema pleural effusion or mass effect. The hilum and apices were normal. XR/XR chest 1V portable [id number] IMPRESSION: Coronary bypass findings. Dictated By: Bj Akers DO Signed By: Bj Akers DO Signed Date/Time: 06/17/19999 DD/ 0958 Discharge Plan Discharge Patient Disposition: Home, Self-Care Clinical Impression: Upper respiratory infection Qualifiers: URI type: unspecified viral URI Qualified Code(s): J06.9 - Acute upper res piratory infection, unspecified Condition: Stable Prescriptions: No Action lithium carbonate 300 mg capsule 300 mg PO BID Qty: 60 RF: 2 trazodone 50 mg Tablet 50 mg PO BEDTIME PRN (Reason: Sleep) Qty: 15 RF: 1 gabapentin 100 mg Capsule 100 mg PO TID Qty: 90 RF: 0 aripiprazole 10 mg Tablet 10 mg PO DAILY 30 Days Qty: 30 RF: 1 gabapentin 100 mg Capsule 100 mg PO TID 30 Days Qty: 90 RF: 0 ibuprofen 800 mg tablet 800 mg PO Q8H PRN (Reason: pain) Qty: 20 RF: 0 Discharge Orders: Discharge Order (Routine); Ordered 06/17/19 Ordered By: Pavel Rogers Referrals: Kyree Naqvi MD [Primary Care Provider] - Discharge Diet: Regular Discharge Activity: Resume usual activity Patient Instructions: Upper Respiratory Infection - Adult Activity Restrictions/Additional Instructions: Follow-up with your PCP in 7 days for reevaluation. Drink plenty of fluids and stay hydrated. Take Tylenol and/or Motrin for fever control. Also take [id number] decongestants to help with nasal symptoms. Discharge Date/Time: 06/17/19 11:25 Coding Level of Care Code ED Transfer Controller for Sriram Davalos Exam Detailed
[2019-06-17 09:39] VITALS: BP 136/79; RESP 18; TEMP 36.8; O2SAT 93
--- NOTE | 2019-06-17 09:41 | XR_ITS ---
WS: [id number] XR chest 1V portable [id number] REASON FOR EXAM: cough and SOB FINDINGS: Sternotomy findings are identified with prior coronary bypass changes. This study was keyla red to June 14, 2019 with no interval changes. The peripheral lung show no active infiltrates no pneumonia or pulmonary edema pleural effusion or ma ss effect. The hilum and apices were normal. XR/XR chest 1V portable [id number] IMPRESSION: Coronary bypass findings.
[2019-06-17] MEDS: ketorolac 30 mg/mL INJ IM (10:22)
[2019-06-17 11:13] LABS: Add Urine Culture? No; Bilirubin Urine Neg (NEGATIVE); Blood Urine Neg (Negative); Glucose Urine UA Norm (Normal); Ketones Urine Negative (Negative); Leukocyte Esterase Urine Negative (Negative); Nitrate Urine Negative (Negative); Protein Urine Neg (Negative); Urine Color Yellow (Yellow); Urobilinogen Urine Norm (Negative); pH Urine 6.5 (5-7)
[2019-06-17 11:15] LABS: Urine Appearance Clear (CLEAR)
[2019-06-17 11:24] VITALS: BP 152/93; PULSE 82; RESP 16; O2SAT 96
== END 2019-06-17 11:25 | disposition home or self-care (01) ==
PROVIDERS: Emergency Provider Physician Assistant; PCP Urology
DX: J06.9 Acute upper respiratory infection, unspecified (principal); F17.210 Nicotine dependence, cigarettes, uncomplicated
CPT/HCPCS: 71045; 81001; 96372; 99281; 99282; 99283; A9270; J1885

== ENCOUNTER 2019-06-19 22:56 | Emergency (ER) | payer MEDICAID, SELFPAY ==
[2019-06-19 23:05] VITALS: BP 148/95; PULSE 107; RESP 18; TEMP 36.9; O2SAT 96; BMI 29.1
--- NOTE | 2019-06-19 23:18 | ED_ITS ---
HPI - Male Genitourinary General: Chief complaint: Urogenital-Male Stated complaint: needle puncture??? Time Seen by Provider: 06/19/19 23:11 Source: patient Mode of arrival: ambulatory Limitations: no limitations History of Present Illness: HPI Narrative: Patient is a 43-year-old male who presents to ED today with complaints of left groin pain. Patient states he has had pain intermittently for several months now. His pain today began while walking. When asked specifically where he is having pain he shows me his left testicle. He has not noticed any redness or swelling. MD Complaint: testicle pain Onset (ago): month(s) Duration: intermittent Location: left testicle Severity: mild Associated symptoms: Deny dysuria, hematuria, nausea, urinary incontinence or vomiting Review of Systems Const: Denies: fever or chills ENMT: Denies: throat pain, enlarged tonsils or painful swallowing Card: Denies: chest pain, palpitations, irregular heart rhythm, edema, lightheadedness, syncope or pre-syncope Resp: Denies: shortness of breath, productive cough, coughing up blood or chest congestion GI: Denies: abdominal pain, nausea, vomiting or diarrhea : Reports: testicular pain; Denies: flank pain, difficulty urinating, painful urination, urinary frequency, urinary urgency, urinary hesitancy, urinary incontinence, blood in urine, genital lesion, penile discharge, testicular mass or scrotal swelling Skin/Breast: Denies: rash, itching, sores or new lesion PFS ED PFSH: Social History Smoking and tobacco status: current every day smoker cigarettes Packs smoked per day: 1 Years cigarettes smoked: 1 Quit status (tobacco): not considering quitting Second hand smoke exposure: No Physical Exam Const: COMMON NORMALS: no apparent distress, no limitations, alert and well nourished GI: COMMON NORMALS: normal to inspection, nondistended, normoactive bowel soun ds, soft to palpation, non-tender, no hepatosplenomegaly and no masses PALPATION: Yes soft and Yes no hepatosplenomegaly : COMMON NORMALS: Yes no CVA tenderness, Yes external exam normal, Yes teste s normal, Yes scrotum normal, Yes no scrotal swelling and Yes no hernias present BLADDER/KIDNEY EXAM: Yes no CVA tenderness PENIS: normal penis MEATUS: meatus normal SCROTUM: Yes testes descended bilaterally TESTES: Yes testicular lie normal Back/Pelvis: COMMON NORMALS: no CVA tenderness Neuro: SENSORIUM/ORIENTATION: Yes alert Skin: COMMON NORMALS: no rashes or lesions noted GENERAL SKIN EXAM: no rashes or lesions noted Course Vital Signs: Vital signs: Vital Signs Temperature 98.5 F 06/19/19 23:05 Pulse Rate 107 H 06/19/19 23:05 Respiratory Rate 18 06/19/19 23:05 Blood Pressure 148/95 06/19/19 23:05 Pulse Oximetry 96 06/19/19 23:05 MDM - Male MDM Narrative: Medical decision making narrative: Patient states he just wants a shot of Toradol and wants to go home. He refuses any form of work-up from the emergency department including UA, blood work, testicular ultrasound. Discharge Plan Discharge Patient Disposition: Home, Self-Care Clinical Impression: Pain in left testicle Condition: Stable Prescriptions: No Action lithium carbonate 300 mg capsule 300 mg PO BID Qty: 60 RF: 2 trazodone 50 mg Tablet 50 mg PO BEDTIME PRN (Reason: Sleep) Qty: 15 RF: 1 gabapentin 100 mg Capsule 100 mg PO TID Qty: 90 RF: 0 Abilify 10 mg tablet 10 mg PO DAILY RF: 0 gabapentin 100 mg Capsule 100 mg PO TID 30 Days Qty: 90 RF: 0 ibuprofen 800 mg tablet 800 mg PO Q8H PRN (Reason: pain) Qty: 20 RF: 0 Discharge Orders: Discharge Order (Routine); Ordered 06/19/19 Ordered By: Lise Meier Referrals: Kyree Naqvi MD [Primary Care Provider] - Discharge Diet: Usual diet Discharge Activity: Resume usual activity Activity Restrictions/Additional Instructions: As discussed you have refused any form of evaluation for your testicular/scrotal pain including urine analysis, blood work, testicular ultrasound. Given your history of pain over the past several months this is most likely nonemergent in nature however I still recommended that you stay for evaluation but again you have refused. Please follow-up with your primary care provider so they can assess your discomfort. Coding Level of Care Code ED Golf Cart Assembler for Sriram Davalos
[2019-06-19] MEDS: ketorolac 60 mg/2 mL INJ IM (23:23)
== END 2019-06-19 23:24 | disposition home or self-care (01) ==
LOC: ER 23:32
PROVIDERS: Emergency Provider Physician Assistant; PCP Urology
DX: N50.812 Left testicular pain (principal); F17.210 Nicotine dependence, cigarettes, uncomplicated
CPT/HCPCS: 96372; 99281; 99283; J1885

== ENCOUNTER 2019-06-22 20:37 | Emergency (ER) | payer MEDICAID, SELFPAY ==
[2019-06-22 20:43] VITALS: BP 148/95; PULSE 83; RESP 16; TEMP 36.6; O2SAT 97; BMI 29.8
--- NOTE | 2019-06-22 20:53 | ED_ITS ---
HPI - General Adult General: Chief complaint: General Medical Stated complaint: stiffness both legs Time Seen by Provider: 06/22/19 20:53 History of Present Illness: HPI narrative: Patient is a 43-year-old male who comes into the ED with neck pain and some bilateral leg soreness. Patient said symptoms started a couple days ago. Denies any injury or fall or trauma. He describes the neck pain is muscular soreness is worse in the mornings when he wakes up and then gets a little better throughout the day. The leg pain is similar and affects both calf muscles. He says in the mornings when he wakes up his calf muscles feel sore and tight but then get all better throughout the day. Denies any chest pain or shortness of breath or cough. Associated symptoms: Deny chest pain, dyspnea, headache(s), nausea, rash, palpitations or vomiting Review of Systems Const: Denies: fever, chills or fatigue Eyes: Denies: change in vision or eye discomfort ENMT: Denies: throat pain, painful swallowing, nasal discharge or nasal congestion Card: Denies: chest pain, palpitations, edema, swelling of feet/ankles, shortness of breath on exertion or shortness of breath when lying down Resp: Denies: shortness of breath, productive cough or non-productive cough GI: Denies: abdominal pain, nausea, vomiting, diarrhea, constipation or blood in stool : Denies: flank pain, difficulty urinating, painful urination or blood in urine Musc: Reports: neck pain (muscular pain and stiffness) and extremity pain (bilateral calf muscles); Denies: back pain or extremity swelling Skin/Breast: Denies: rash or new lesion Neuro: Denies: headache, numbness in extremities or weakness in extremities PFS ED PFSH: Social History Smoking and tobacco status: current every day smoker cigarettes Packs smoked per day: 1 Years cigarettes smoked: 1 Quit status (tobacco): not considering quitting Second hand smoke exposure: No Physical Exam Narrative: EXAM NARRATIVE: Patient is a 43-year-old male sitting comfortably in chair in the exam room. He is showing no signs of acute pain or respiratory distress. Const: COMMON NORMALS: oriented x3 HENMT: COMMON NORMALS: normocephalic HEAD & SCALP: normocephalic MOUTH: oral and palatal mucosa normal THROAT: posterior oropharynx normal and uvula midline Neck/C-Spine: COMMON NORMALS: full ROM and supple GENERAL: Yes normal visual inspection CERVICAL SPINE: Yes paracervical muscle tenderness and Yes trapezius muscle tenderness Resp: COMMON NORMALS: normal respiratory effort, no retractions, no use of ac cessory muscles and clear to auscultation bilaterally AUSCULTATION: clear to auscultation bilaterally Cardio: COMMON NORMALS: regular rate, regular rhythm, S1 normal heart sound, S2 normal heart sound, no gallops, no clicks, no murmurs and peripheral pulses 2+ throughout RATE: regular rate RHYTHM: regular rhythm HEART SOUNDS: S1 normal and S2 normal PERIPHERAL PULSES: pulses 2+ throughout GI: COMMON NORMALS: normal to inspection, nondistended, normoactive bowel sounds, soft to palpation, non-tender and no masses PALPATION: Yes soft : COMMON NORMALS: Yes no CVA tenderness BLADDER/KIDNEY EXAM: Yes no CVA tenderness Back/Pelvis: COMMON NORMALS: no CVA tenderness Extremity: COMMON NORMALS: normal to inspection NARRATIVE EXTREMITY EXAM: No swelling in legs bilaterally. Patient has had some varicose veins in both lower extremities No tenderness upon palpation. Neuro: COMMON NORMALS: oriented x3 and moves all extremities Course ED course: pt's pain and symptoms improved after toradol and norflex. Vital Signs: Vital signs: Vital Signs Temperature 97.4 F L 06/22/19 22:57 Pulse Rate 83 06/22/19 22:57 Respiratory Rate 16 06/22/19 22:57 Blood Pressure 141/88 06/22/19 22:57 Pulse Oximetry 98 06/22/19 22:57 Discharge Plan Discharge Patient Disposition: Home, Self-Care Clinical Impression: Acute muscle stiffness of neck, Bilateral leg cramps Condition: Stable Prescriptions: New Robaxin-750 750 mg tablet 750 mg PO Q8H Qty: 10 RF: 0 No Action lithium carbonate 300 mg capsule 300 mg PO BID Qty: 60 RF: 2 trazodone 50 mg Tablet 50 mg PO BEDTIME PRN (Reason: Sleep) Qty: 15 RF: 1 gabapentin 100 mg Capsule 100 mg PO TID Qty: 90 RF: 0 Abilify 10 mg tablet 10 mg PO DAILY RF: 0 gabapentin 100 mg Capsule 100 mg PO TID 30 Days Qty: 90 RF: 0 ibuprofen 800 mg tablet 800 mg PO Q8H PRN (Reason: pain) Qty: 20 RF: 0 Discharge Orders: Discharge Order (Routine); Ordered 06/22/19 Ordered By: Pavel Rogers Referrals: Kyree Naqvi MD [Primary Care Provider] - Discharge Diet: Regular Discharge Activity: Resume usual activity Activity Restrictions/Additional Instructions: Follow-up with PCP in 7 days for reevaluation. Continue taking the previously prescribed ibuprofen to help with pain and inflammation. I'm also sending you with a prescription for muscle relaxer. He can take muscle relaxer before bed and help with pain and discomfort when sleeping. Muscle relaxer can make you drowsy so he use with caution. Drink plenty fluids and stay hydrated. Stretch out muscles in the morning. Discharge Date/Time: 06/22/19 23:05 Coding Level of Care Code ED Intellectual Property Counsel for Sriram Fwd Exam Comprehensive
[2019-06-22] MEDS: ketorolac 30 mg/mL INJ IM (22:51)
[2019-06-22] MEDS: orphenadrine 30 mg/mL Inj 2 mL 60 MG IM (22:53)
[2019-06-22 22:57] VITALS: BP 141/88; PULSE 83; RESP 16; TEMP 36.3; O2SAT 98
== END 2019-06-22 23:05 | disposition home or self-care (01) ==
PROVIDERS: Emergency Provider Physician Assistant; PCP Urology
DX: M43.6 Torticollis (principal); R25.2 Cramp and spasm; F17.210 Nicotine dependence, cigarettes, uncomplicated
CPT/HCPCS: 96372; 96375; 99281; 99283; J1885; J2360

== ENCOUNTER 2019-06-25 02:05 | Emergency (ER) | payer MEDICAID, SELFPAY ==
[2019-06-25 02:06] VITALS: BP 145/100; PULSE 98; RESP 18; O2SAT 97; BMI 30.7
--- NOTE | 2019-06-25 02:27 | ECG_ITS ---
Measurements Intervals [place] Rate: 93 P: 66 AR: 152 QRS: 36 QRSD: 98 T: 104 QT: 354 QTc: 442 SINUS RHYTHM NONSPECIFIC T-WAVE ABNORMALITY Compared to ECG 05/18/2019 19:32:13 Intraventricular conduction delay no longer present T-wave abnormality still present Electronically Signed On 06-25-2019 15:32:07 DIRECTOR INSURANCE by Zoe Hernandez M.D. [email or web address]
--- NOTE | 2019-06-25 02:28 | W.ED.CHESTPA ---
HPI - Chest Pain General: Chief Complaint: Chest Pain Stated Complaint: CHEST PAIN Time Seen by Provider: 06/25/19 02:14 History of Present Illness: MD complaint: chest discomfort Onset (ago): hour(s) Timing of current episode: episodic Onset: during rest Quality: tightness Relieving factors: nothing Exacerbating factors: other (agitation ) Associated symptoms: Deny abdominal pain, dyspnea, fever(s), nausea, palpitations or vomiting Review of Systems Const: Denies: fever or chills Eyes: Denies: change in vision ENMT: Denies: painful swallowing or facial/sinus pain Card: Denies: chest pain, palpitations, swelling of feet/ankles or shortness of breath when lying down Resp: Denies: shortness of breath, productive cough, non-productive cough or wheezing GI: Denies: abdominal pain, nausea or vomiting Musc: Denies: neck pain or back pain Skin/Breast: Denies: rash, itching or redness Neuro: Reports: dizziness; Denies: headache or vertigo Psych: Reports: anxiety; Denies: visual hallucinations or auditory hallucinations PFS ED PFSH: Social History Smoking and tobacco status: current every day smoker cigarettes Packs smoked per day: 1 Years cigarettes smoked: 1 Quit status (tobacco): not considering quitting Second hand smoke exposure: No Physical Exam Const: ORIENTATION/CONSCIOUSNESS: Yes oriented to person, Yes oriented to place and Yes oriented to time HENMT: COMMON NORMALS: normocephalic, external ears normal and external nose normal HEAD & SCALP: normocephalic; no scalp tenderness FACE & SINUS: normal facial exam NOSE: external nose normal and no nasal discharge EXTERNAL EAR: Yes external ears normal MOUTH: tongue normal TEETH & GINGIVA: no abnormal tooth and associated gingiva THROAT: posterior oropharynx normal; no peritonsillar mass Eye: COMMON NORMALS: PERRL, EOMs intact bilaterally and conjunctivae normal EYELID: eyelids normal CONJUNCTIVA: Yes conjunctivae normal PUPIL: Yes PERRL Neck/C-Spine: COMMON NORMALS: full ROM GENERAL: No tracheal deviation Chest: COMMONS NORMALS: inspection of chest normal CHEST: No tenderness Resp: COMMON NORMALS: clear to auscultation bilaterally EFFORT & INSPECTION: No tachypneic, No respiratory distress, No retractions, No uses accessory muscles and No tracheal deviation AUSCULTATION: clear to auscultation bilaterally, no rhonchi, no wheezes and lung sounds not diminished Cardio: COMMON NORMALS: regular rate and regular rhythm RATE: regular rate RHYTHM: regular rhythm HEART SOUNDS: no murmurs PERIPHERAL PULSES: radial pulses present GI: INSPECTION: No abdominal distension AUSCULTATION: No hyperactive bowel sounds and No hypoactive bowel sounds PALPATION: No guarding and No rigid PERCUSSION: no dullness to percussion and no tympanic to percussion : COMMON NORMALS: Yes no CVA tenderness BLADDER/KIDNEY EXAM: Yes no CVA tenderness Back/Pelvis: COMMON NORMALS: no CVA tenderness Neuro: SENSORIUM/ORIENTATION: Yes oriented to person, Yes oriented to place and Yes oriented to time Psych: COMMON NORMALS: denies suicidal ideation ATTITUDE: Yes agitated ACTIVITY/MOTOR BEHAVIOR: Yes psychomotor agitation and Yes avoids eye contact SPEECH: Yes rapid MOOD & AFFECT: Yes anxious THOUGHT PROCESS: disorganized THOUGHT CONTENT: No suicidality, No homicidality and No hallucination(s) MEMORY/COGNITION: Yes memory grossly intact Skin: COMMON NORMALS: no rashes or lesions noted GENERAL SKIN EXAM: no rashes or lesions noted Course Vital Signs: Vital signs: Vital Signs Pulse Rate 98 06/25/19 02:06 Respiratory Rate 18 06/25/19 02:06 Blood Pressure 145/100 06/25/19 02:06 Pulse Oximetry 97 06/25/19 02:06 MDM - Chest Pain MDM Narrative: Medical decision making narrative: 43 yo male presents with chest discomfort and palpitations. He is here freqeuntly with similar complaints. His symptoms are resolved currently. He's sleeping. Sats 95% on RA. HR 87 sinus. EKG SR 90, normal axis, no st segment changes. troponin neg. other labs normal. he'll be discharged. he has a history of malingering at this institution, especially when homeless. Lab Data: Labs: Lab Results 06/25/19 06/25/19 06/25/19 Range/Units 02:30 02:30 02:30 WBC 5.3 (4.0-10.0) 10^3/ uL RBC 4.50 (4.1-5.3) 10^6/u L Hgb 12.2 (11.7-16.6) g/dL Hct 38.8 L (42.0-52.0) % MCV 86.2 (80-94) fL MCH 27.1 L (28.0-34.0) pg MCHC 31.4 (30.0-36.0) g/dL RDW 13.4 (12.1-15.1) % Plt Count 202 (130-400) 10^3/c mm MPV 9.6 (7.4-10.4) fL Neut % (Auto) 58.6 % Lymph % (Auto) 30.7 % [place] % (Auto) 8.2 % Eos % (Auto) 2.1 % Baso % (Auto) 0.2 % Neut # (Auto) 3.1 (1.8-7.7) 10^3/u L Lymph # (Auto) 1.6 (0.8-4.8) 10^3/u L [place] # (Auto) 0.4 (0.2-0.9) 10^3/u L Eos # (Auto) 0.1 (0.0-0.8) 10^3/u L Baso # (Auto) 0.0 (0.0-0.1) 10^3/u L Nucleated RBC % (a uto) 0 % Nucleated RBCs # 0.0 /100WBC Sodium 143 (136-145) mmol/L Potassium 3.9 (3.5-5.1) mmol/L Chloride 104 (98-107) mmol/L Carbon Dioxide 28 (22-29) mmol/L Anion Gap 14.9 (5-19) BUN 13 (6-20) mg/dL Creatinine 0.9 (0.7-1.2) mg/dL GFR Calculation 92.1 (90-130) mL/min Glucose 106 (65-115) mg/dL Calcium 9.8 (8.5-10.5) mg/dL Total Bilirubin 0.2 (0.15-1.2) mg/dL AST 20 (0-40) U/L ALT 24 (0-41) U/L Alkaline Phosphata se 86 (40-130) IU/L Troponin T Baselin e 10 (0-15) ng/mL Total Protein 6.6 (6.6-8.7) g/dL Albumin 4.1 (3.5-5.2) g/dL Globulin 2.5 (1.3-4.6) g/dL Discharge Plan Discharge Patient Disposition: Home, Self-Care Clinical Impression: Chest pain Qualifiers: Chest pain type: unspecified Qualified Code(s): R07.9 - Chest pain, unspecified Condition: Stable Prescriptions: No Action lithium carbonate 300 mg capsule 300 mg PO BID Qty: 60 RF: 2 trazodone 50 mg Tablet 50 mg PO BEDTIME PRN (Reason: Sleep) Qty: 15 RF: 1 gabapentin 100 mg Capsule 100 mg PO TID Qty: 90 RF: 0 Abilify 10 mg tablet 10 mg PO DAILY RF: 0 Robaxin-750 750 mg tablet 750 mg PO Q8H Qty: 10 RF: 0 gabapentin 100 mg Capsule 100 mg PO TID 30 Days Qty: 90 RF: 0 ibuprofen 800 mg tablet 800 mg PO Q8H PRN (Reason: pain) Qty: 20 RF: 0 Discharge Orders: Discharge Order (Routine); Ordered 06/25/19 Ordered By: Jan Byrd Referrals: Kyree Naqvi MD [Primary Care Provider] - Discharge Diet: Advance as tolerated Discharge Activity: Resume usual activity Patient Instructions: Chest Pain (ED) Activity Restrictions/Additional Instructions: Return for concerning sympotms. Coding Level of Care Code ED Polish Maker for Sriram Fwestrella Exam Comprehensive
[2019-06-25 02:42] LABS: Basophils % 0.2 %; Eosinophils # 0.1 10^3/uL (0.0-0.8); Eosinophils % 2.1 %; Hematocrit 38.8 % (42.0-52.0); Hemoglobin 12.2 g/dL (11.7-16.6); Lymphocytes # 1.6 10^3/uL (0.8-4.8); Lymphocytes % 30.7 %; Mean Corpuscular HGB Conc 31.4 g/dL (30.0-36.0); Mean Corpuscular Hemoglobin 27.1 pg (28.0-34.0); Mean Corpuscular Volume 86.2 fL (80-94); Mean Platelet Volume 9.6 fL (7.4-10.4); Monocytes # 0.4 10^3/uL (0.2-0.9); Monocytes % 8.2 %; Neutrophils # 3.1 10^3/uL (1.8-7.7); Neutrophils % 58.6 %; Nucleated Red Blood Cells % 0 %; Platelet Count 202 10^3/cmm (130-400); Red Cell Distribution Width 13.4 % (12.1-15.1); White Blood Count 5.3 10^3/uL (4.0-10.0)
[2019-06-25] MEDS: LORazepam 1 mg Tablet 2 MG PO (02:44)
[2019-06-25 03:06] LABS: Alanine Aminotransferase 24 U/L (0-41); Albumin Level 4.1 g/dL (3.5-5.2); Alkaline Phosphatase 86 IU/L (40-130); Anion Gap 14.9 (5-19); Aspartate Amino Transferase 20 U/L (0-40); Blood Urea Nitrogen 13 mg/dL (6-20); Calcium 9.8 mg/dL (8.5-10.5); Carbon Dioxide 28 mmol/L (22-29); Chloride 104 mmol/L (98-107); Globulin 2.5 g/dL (1.3-4.6); Glomerular Filtration Rate 92.1 mL/min (90-130); Glucose 106 mg/dL (65-115); Potassium 3.9 mmol/L (3.5-5.1); Sodium 143 mmol/L (136-145); Total Bilirubin 0.2 mg/dL (0.15-1.2); Total Protein 6.6 g/dL (6.6-8.7)
[2019-06-25 03:08] LABS: Troponin(5th) Baseline 10 ng/mL (0-15)
[2019-06-25 04:32] VITALS: BP 151/87; PULSE 98; RESP 18; O2SAT 99
== END 2019-06-25 04:32 | disposition home or self-care (01) ==
PROVIDERS: Emergency Provider Emergency Medicine; PCP Urology
DX: R07.9 Chest pain, unspecified (principal); F17.210 Nicotine dependence, cigarettes, uncomplicated
CPT/HCPCS: 80053; 84484; 85025; 93005; 99281; 99284

== ENCOUNTER 2019-06-28 06:37 | Emergency (ER) | payer MEDICAID, SELFPAY ==
[2019-06-28 07:06] VITALS: BMI 32.1
[2019-06-28 07:09] VITALS: BP 150/109; PULSE 71; RESP 18; TEMP 36.6; O2SAT 97
--- NOTE | 2019-06-28 07:24 | ED_ITS ---
HPI - Back Pain/Injury General: Chief Complaint: Back Pain/Injury Stated Complaint: BACK PAIN Time Seen by Provider: 06/28/19 07:24 Source: patient Mode of arrival: ambulatory Limitations: no limitations History of Present Illness: HPI Narrative: Patient is a 43-year-old male who is well-known to our emergency department here for complaints of right-sided neck pain. Patient states he has had this pain over the past 1 to 2 weeks. Patient has already been seen at our facility once for this. He states pain is worse with movement of his head and shoulders. He denies any numbness, tingling, weakness, loss of sensation to his extremities. Denies neck stiffness, headache, or fevers. MD elicited complaint: other (neck pain) Onset (ago): week(s) Timing: constant Similar Symptoms Previously: Yes Radiation: other (movement of neck/head ) Associated symptoms: Deny chills, fatigue, fever(s), nausea, syncope or vomiting Review of Systems Const: Denies: fever, chills, body aches, change in appetite, change in weight, fatigue or malaise Card: Denies: chest pain, palpitations, irregular heart rhythm, edema, swelling of feet/ankles, lightheadedness, syncope or pre-syncope Resp: Denies: shortness of breath, productive cough, coughing up blood or chest congestion GI: Denies: nausea or vomiting Musc: Reports: neck pain and extremity pain (shoulders ); Denies: back pain, extremity swelling, joint pain or joint swelling Skin/Breast: Denies: rash, new lesion, changing lesion or changes in skin color Neuro: Denies: headache, numbness in extremities, weakness in extremities or changes in sensation PFS ED PFSH: Social History Smoking and tobacco status: current every day smoker cigarettes Packs smoked per day: 1 Years cigarettes smoked: 1 Quit status (tobacco): not considering quitting Second hand smoke exposure: No Physical Exam Const: COMMON NORMALS: no apparent distress, oriented x3, no limitations, alert and well nourished Neck/C-Spine: COMMON NORMALS: full ROM, no lymphadenopathy and no meningeal signs OTHER: TTP R lateral paraspinal musculature; no midline tenderness Extremity: COMMON NORMALS: normal to inspection, full ROM and no joint enl argement OTHER: full unlabored ROM of shoulders Neuro: COMMON NORMALS: oriented x3 SENSORIUM/ORIENTATION: Yes alert MENINGEAL SIGNS: Yes no meningeal signs Skin: COMMON NORMALS: no rashes or lesions noted GENERAL SKIN EXAM: no rashes or lesions noted Course Vital Signs: Vital signs: Vital Signs Temperature 97.8 F 06/28/19 07:09 Pulse Rate 82 06/28/19 07:37 Respiratory Rate 17 06/28/19 07:37 Blood Pressure 118/78 06/28/19 07:37 Pulse Oximetry 96 06/28/19 07:37 Discharge Plan Discharge Patient Disposition: Home, Self-Care Clinical Impression: Neck strain Qualifiers: Encounter type: initial encounter Qualified Code(s): S16.1XXA - Strain of muscle, fascia and tendon at neck level, initial encounter Condition: Stable Prescriptions: Continued Robaxin-750 750 mg tablet 750 mg PO Q8H Qty: 10 RF: 0 No Action lithium carbonate 300 mg capsule 300 mg PO BID Qty: 60 RF: 2 trazodone 50 mg Tablet 50 mg PO BEDTIME PRN (Reason: Sleep) Qty: 15 RF: 1 gabapentin 100 mg Capsule 100 mg PO TID Qty: 90 RF: 0 Abilify 10 mg tablet 10 mg PO DAILY RF: 0 gabapentin 100 mg Capsule 100 mg PO TID 30 Days Qty: 90 RF: 0 ibuprofen 800 mg tablet 800 mg PO Q8H PRN (Reason: pain) Qty: 20 RF: 0 Discharge Orders: Discharge Order (Routine); Ordered 06/28/19 Ordered By: Lise Meier Referrals: Kyree Naqvi MD [Primary Care Provider] - Patient Instructions: Cervical Spine Strain (ED) Activity Restrictions/Additional Instructions: As discussed you need to follow up with your primary care provider for these non-emergent complaints. Discharge Date/Time: 06/28/19 07:38 Coding Level of Care Code ED Technology Architect for Sriram Davalos
[2019-06-28] MEDS: orphenadrine 30 mg/mL Inj 2 mL 60 MG IM (07:36)
[2019-06-28 07:37] VITALS: BP 118/78; PULSE 82; RESP 17; O2SAT 96
== END 2019-06-28 07:38 | disposition home or self-care (01) ==
PROVIDERS: Emergency Provider Physician Assistant; PCP Urology
DX: S16.1XXA Strain of muscle, fascia and tendon at neck level, initial encounter (principal); F17.210 Nicotine dependence, cigarettes, uncomplicated; X58.XXXA Exposure to other specified factors, initial encounter
CPT/HCPCS: 96372; 99281; 99283; J2360

== ENCOUNTER 2019-06-29 02:02 | Emergency (ER) | payer MEDICAID, SELFPAY ==
[2019-06-29 02:52] VITALS: BP 162/109; PULSE 82; RESP 18; TEMP 37; O2SAT 97; BMI 32.1
--- NOTE | 2019-06-29 03:01 | ED_ITS ---
HPI - General Adult General: Chief complaint: General Medical Stated complaint: VOMITING Time Seen by Provider: 06/29/19 02:53 History of Present Illness: HPI narrative: Patient says he had possibly couple episodes of diarrhea and threw up x1 he is feeling better now. Neck feels better. Is off his blood pressure medicine now would like to be back on that. Not taking any medicine for his diarrhea at home MD complaint: Diarrhea and high blood pressure Onset (ago): hour(s) Severity: mild Relieving factors: none Associated symptoms: Reports vomiting (1 time very little); Deny chest pain, dyspnea, headache(s), nausea or rash Review of Systems Const: Denies: fever, chills or body aches Eyes: Denies: change in vision or blurry vision ENMT: Denies: throat pain or nasal congestion Card: Denies: chest pain or shortness of breath on exertion Resp: Denies: shortness of breath, productive cough or non-productive cough GI: Reports: vomiting (1 time very little) and other (Diarrhea x2); Denies: abdominal pain or nausea : Denies: difficulty urinating Musc: Denies: extremity pain Skin/Breast: Denies: rash Neuro: Denies: headache Psych: Denies: anxiety or depression Bull/Lymph: Denies: easy bruising PFSH ED PFSH: Social History Smoking and tobacco status: current every day smoker cigarettes Packs smoked per day: 1 Years cigarettes smoked: 1 Quit status (tobacco): not considering quitting Second hand smoke exposure: No Physical Exam Const: COMMON NORMALS: no apparent distress, average body habitus and oriented x3 HENMT: COMMON NORMALS: normocephalic HEAD & SCALP: normal to inspection and normocephalic FACE & SINUS: normal facial exam Eye: COMMON NORMALS: conjunctivae normal GENERAL EYE: normal appearance of both eyes CONJUNCTIVA: Yes conjunctivae normal Neck/C-Spine: COMMON NORMALS: no JVD Chest: COMMONS NORMALS: inspection of chest normal Resp: COMMON NORMALS: normal respiratory effort and clear to auscultation bilaterally AUSCULTATION: clear to auscultation bilaterally Cardio: COMMON NORMALS: no JVD, regular rate and regular rhythm RATE: regular rate RHYTHM: regular rhythm GI: COMMON NORMALS: normal to inspection, nondistended, normoactive bowel sounds Extremity: COMMON NORMALS: normal to inspection and full ROM Neuro: COMMON NORMALS: oriented x3 Course Vital Signs: Vital signs: Vital Signs Temperature 98.6 F 06/29/19 02:52 Pulse Rate 82 06/29/19 02:52 Respiratory Rate 18 06/29/19 02:52 Blood Pressure 162/109 06/29/19 02:52 Pulse Oximetry 97 06/29/19 02:52 Discharge Plan Discharge Prescriptions: No Action lithium carbonate 300 mg capsule 300 mg PO BID Qty: 60 RF: 2 trazodone 50 mg Tablet 50 mg PO BEDTIME PRN (Reason: Sleep) Qty: 15 RF: 1 gabapentin 100 mg Capsule 100 mg PO TID Qty: 90 RF: 0 aripiprazole [Abilify] 10 mg tablet 10 mg PO DAILY RF: 0 methocarbamol [Robaxin-750] 750 mg tablet 750 mg PO Q8H Qty: 10 RF: 0 gabapentin 100 mg Capsule 100 mg PO TID 30 Days Qty: 90 RF: 0 ibuprofen 800 mg tablet 800 mg PO Q8H PRN (Reason: pain) Qty: 20 RF: 0 Coding Level of Care Code ED Operator Engineer for Sriram Davalos
--- NOTE | 2019-07-02 10:55 | DCPLANNER ---
manager multimedia called patient due to multiple visits. manager multimedia called number on file, it was patients sister number. manager multimedia left message that if patient calls his sister for her to give him a message to call window caser.
== END 2019-06-29 04:24 | disposition home or self-care (01) ==
PROVIDERS: Emergency Provider Nurse Practitioner Family; PCP Urology
DX: R11.10 Vomiting, unspecified (principal); R19.7 Diarrhea, unspecified; I10 Essential (primary) hypertension; F17.210 Nicotine dependence, cigarettes, uncomplicated
CPT/HCPCS: 99281; 99282

== ENCOUNTER 2019-07-02 20:26 | Emergency (ER) | payer MEDICAID, SELFPAY ==
[2019-07-02 21:10] VITALS: BP 131/84; PULSE 91; RESP 16; TEMP 37; O2SAT 96; BMI 30.7
--- NOTE | 2019-07-02 23:10 | ED_ITS ---
Entered by Sheela Gar, acting as scribe for Mora Canseco MD Jul 02, 2019 20:26 HPI - Back Pain/Injury General: Chief Complaint: Back Pain/Injury Stated Complaint: body ache Time Seen by Provider: 07/02/19 23:09 Source: patient Mode of arrival: ambulatory History of Present Illness: HPI Narrative: 43 y/o male presents to the ED with complaint of back/flank pain and painful urination. Pt states he used meth yesterday and his symptoms started today. He is concerned about his kidneys due to the burning sensation. MD elicited complaint: back pain and other (painful urination) Pertinent past history: other (meth) Onset (ago): day(s) Severity: mild Quality: burning Location: left flank and right flank Relieving factors: none Associated symptoms: Reports dysuria; Deny abdominal pain, chills, fever(s), nausea or vomiting Review of Systems Const: Denies: fever, chills, body aches or change in appetite Eyes: Denies: blurry vision or eye discomfort ENMT: Denies: throat pain or dental pain Card: Denies: chest pain Resp: Denies: shortness of breath GI: Denies: abdominal pain, nausea, vomiting or diarrhea : Reports: painful urination Musc: Reports: back pain; Denies: neck pain Skin/Breast: Denies: rash Neuro: Denies: headache Psych: Denies: depression Bull/Lymph: Denies: easy bruising All/Imm: Denies: hives PFSH ED PFSH: Social History Smoking and tobacco status: current every day smoker cigarettes Packs smoked per day: 1 Years cigarettes smoked: 1 Quit status (tobacco): not considering quitting Second hand smoke exposure: No Physical Exam Const: COMMON NORMALS: no apparent distress NUTRITIONAL APPEARANCE: overweight HENMT: COMMON NORMALS: normocephalic and head/scalp atraumatic HEAD & SCALP: normocephalic and atraumatic Eye: COMMON NORMALS: PERRL and EOMs intact bilaterally PUPIL: Yes PERRL Neck/C-Spine: COMMON NORMALS: full ROM and supple Chest: COMMONS NORMALS: inspection of chest normal and palpation of chest normal Resp: COMMON NORMALS: normal respiratory effort, no retractions, no use of accessory muscles and clear to auscultation bilaterally AUSCULTATION: clear to auscultation bilaterally Cardio: COMMON NORMALS: regular rate, regular rhythm and no murmurs RATE: regular rate RHYTHM: regular rhythm GI: COMMON NORMALS: normal to inspection, nondistended, normoactive bowel sounds, soft to palpation, non-tender and no masses PALPATION: Yes soft Extremity: COMMON NORMALS: normal to inspection and full ROM Neuro: COMMON NORMALS: moves all extremities and no focal motor deficits Psych: COMMON NORMALS: cooperative ATTITUDE: Yes calm Course Vital Signs: Vital signs: Vital Signs Temperature 98.6 F 07/02/19 21:10 Pulse Rate 91 07/02/19 21:10 Respiratory Rate 16 07/02/19 21:10 Blood Pressure 131/84 07/02/19 21:10 Pulse Oximetry 96 07/02/19 21:10 MDM - Back Pain/Injury MDM Narrative: Medical decision making narrative: Patient presents here with recent meth use. He is well-appearing here has no signs of urinary tract infection. He did have some back pain that is chronic. Patient states he is going to [employer] tomorrow. He is stable for discharge. Lab Data: Labs: Lab Results 07/02/19 Range/Units 23:20 Urine Color Yellow (Yellow) Urine Appearance Hazy A (CLEAR) Urine pH 6 (5-7) Ur Specific Gravit y 1.020 (1.005-1.030) Urine Protein Neg (Negative) Urine Glucose (UA) Norm (Normal) Urine Ketones Negative (Negative) Urine Blood Neg (Negative) Urine Nitrate Negative (Negative) Urine Bilirubin Neg (NEGATIVE) Urine Urobilinogen Norm (Negative) mg/dL Ur Leukocyte Lisa ase Negative (Negative) Discharge Plan Discharge Patient Disposition: Home, Self-Care Clinical Impression: Methamphetamine abuse Condition: Stable Prescriptions: No Action lithium carbonate 300 mg capsule 300 mg PO BID Qty: 60 RF: 2 trazodone 50 mg Tablet 50 mg PO BEDTIME PRN (Reason: Sleep) Qty: 15 RF: 1 gabapentin 100 mg Capsule 100 mg PO TID Qty: 90 RF: 0 aripiprazole [Abilify] 10 mg tablet 10 mg PO DAILY RF: 0 methocarbamol [Robaxin-750] 750 mg tablet 750 mg PO Q8H Qty: 10 RF: 0 ibuprofen 800 mg tablet 800 mg PO Q8H PRN (Reason: pain) Qty: 20 RF: 0 Imodium A-D 2 mg capsule 2 mg PO Q4H PRN (Reason: loose stool) Qty: 14 RF: 0 lisinopril 10 mg tablet 10 mg PO DAILY Qty: 14 RF: 0 Discharge Orders: Discharge Order (Routine); Ordered 07/02/19 Ordered By: Mora Canseco Referrals: Kyree Naqvi MD [Primary Care Provider] - Discharge Diet: Advance as tolerated Discharge Activity: Resume usual activity Patient Instructions: Methamphetamine Abuse (ED) Coding Level of Care Code ED Truck Hop for Chg Fwd Exam Comprehensive The documentation recorded by the Cong banks Ashley, accurately reflects the service I personally performed and the decisions made by Harleen bui Korby, MD Jul 02, 2019 20:26
[2019-07-02 23:42] LABS: Urine Appearance Hazy (CLEAR); Urine Color Yellow (Yellow); pH Urine 6 (5-7)
[2019-07-02 23:43] LABS: Add Urine Microscopic? YES; Bilirubin Urine Neg (NEGATIVE); Blood Urine Neg (Negative); Glucose Urine UA Norm (Normal); Ketones Urine Negative (Negative); Leukocyte Esterase Urine Negative (Negative); Nitrate Urine Negative (Negative); Protein Urine Neg (Negative); Urobilinogen Urine Norm (Negative)
[2019-07-03 00:13] LABS: Bacteria Urine TRACE; RBC Urine 0-4 /hpf (0-2); Uric Acid Crystals Urine 15-25 /hpf
[2019-07-03 00:15] LABS: Add Urine Culture? No; Hyaline Casts Urine 0-4
[2019-07-03 00:23] VITALS: BP 116/75; PULSE 74; RESP 16; TEMP 36.5; O2SAT 99
== END 2019-07-03 00:23 | disposition home or self-care (01) ==
PROVIDERS: Emergency Provider Emergency Medicine; PCP Urology
DX: F15.10 Other stimulant abuse, uncomplicated (principal); E66.3 Overweight; Z68.30 Body mass index [BMI] 30.0-30.9, adult; F17.210 Nicotine dependence, cigarettes, uncomplicated
CPT/HCPCS: 81001; 99281

== ENCOUNTER → 2019-07-05 08:34 | Outpatient (BNVA) | payer MEDICAID, SELFPAY | PROVIDERS: PCP Nurse Practitioner; Visit Provider Nurse Practitioner Psychiatric/Mental Health | DX: F15.10 Other stimulant abuse, uncomplicated (principal); F25.0 Schizoaffective disorder, bipolar type; Z59.0 Homelessness; F17.200 Nicotine dependence, unspecified, uncomplicated | CPT/HCPCS: 80178; 84443; 99213 ==

== ENCOUNTER 2019-07-07 19:09 | Emergency (ER) | payer MEDICAID, SELFPAY ==
--- NOTE | 2019-07-07 19:15 | ECG_ITS ---
Measurements Intervals [place] Rate: 131 P: 19 NC: 138 QRS: 35 QRSD: 95 T: 67 QT: 384 QTc: 567 SINUS TACHYCARDIA NONSPECIFIC T-WAVE ABNORMALITY ABNORMAL RHYTHM ECG Compared to ECG 06/25/2019 02:15:34 Sinus rhythm no longer present T-wave abnormality still present Electronically Signed On 07-08-2019 19:46:24 CDT by Saritha Ballesteros M.D. [email or web address]
--- NOTE | 2019-07-07 19:15 | XR_ITS ---
WS: [id number] XR chest 1V portable [id number] REASON FOR EXAM: cough FINDINGS: The heart and mediastinal interfaces are normal. Previous sternotomy changes. The lung camp are adequately aerated. No pneumonia, pleural effusion, pulmonary edema, mass effect, or pneumothorax. The hilum and apices normal. No osseous abnormalities. XR/XR chest 1V portable [id number] IMPRESSION: Prior coronary bypass changes.
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
[2019-07-07 19:24] VITALS: BP 146/95; PULSE 132; RESP 18; TEMP 37; O2SAT 96; BMI 32.1
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
[2019-07-07 19:36] LABS: Basophils % 0.1 %; Eosinophils % 0.5 %; Hematocrit 41.2 % (42.0-52.0); Hemoglobin 13.2 g/dL (11.7-16.6); Lymphocytes # 1.3 10^3/uL (0.8-4.8); Lymphocytes % 18.4 %; Mean Corpuscular Volume 84.4 fL (80-94); Mean Platelet Volume 9.5 fL (7.4-10.4); Monocytes # 0.6 10^3/uL (0.2-0.9); Monocytes % 7.6 %; Neutrophils # 5.3 10^3/uL (1.8-7.7); Neutrophils % 73.3 %; Nucleated Red Blood Cells % 0 %; Platelet Count 240 10^3/cmm (130-400); Red Blood Count 4.88 10^6/uL (4.1-5.3); Red Cell Distribution Width 12.9 % (12.1-15.1); White Blood Count 7.3 10^3/uL (4.0-10.0)
[2019-07-07] MEDS: sodium chloride 0.9% 1,000 ML 999 ML IV ×2 (19:44→21:03)
[2019-07-07 19:55] LABS: Alanine Aminotransferase 37 U/L (0-41); Albumin Level 4.5 g/dL (3.5-5.2); Alkaline Phosphatase 76 IU/L (40-130); Anion Gap 21.5 (5-19); Aspartate Amino Transferase 28 U/L (0-40); Blood Urea Nitrogen 10 mg/dL (6-20); Calcium 10.1 mg/dL (8.5-10.5); Carbon Dioxide 23 mmol/L (22-29); Chloride 96 mmol/L (98-107); Glomerular Filtration Rate 81.6 mL/min (90-130); Glucose 142 mg/dL (65-115); Magnesium 2.3 mg/dL (1.7-2.3); Potassium 3.5 mmol/L (3.5-5.1); Sodium 137 mmol/L (136-145); Total Bilirubin 0.4 mg/dL (0.15-1.2); Total Protein 7.5 g/dL (6.6-8.7)
[2019-07-07 19:59] LABS: Troponin(5th) Baseline 11 ng/mL (0-15)
[2019-07-07 19:59] LABS: Amphetamines Screen Urine Positive (Negative); Barbiturates Screen Urine Negative (Negative); Benzodiazepines Screen Urine Negative (Negative); Cocaine Screen Urine Negative (Negative); Opiate Screen Urine Negative (Negative); PCP Screen Urine Negative (Negative); THC Screen Urine Negative (Negative)
[2019-07-07 20:02] LABS: Bacteria Urine TRACE; Bilirubin Urine Neg (NEGATIVE); Blood Urine Neg (Negative); Glucose Urine UA Norm (Normal); Ketones Urine Negative (Negative); Leukocyte Esterase Urine Negative (Negative); Nitrate Urine Negative (Negative); Protein Urine Trace (Negative); RBC Urine 0-4 /hpf (0-2); Squamous Epithelial Cell Urine RARE (0-5); Urine Appearance Clear (CLEAR); Urine Color Yellow (Yellow); Urobilinogen Urine Norm (Negative); WBC Urine 0-4 /hpf (0-5); pH Urine 7 (5-7)
[2019-07-07 20:12] LABS: Hepatitis A Antibody IgM. Non-Reactive (Nonreactive); Hepatitis B Core IgM Non-Reactive (Nonreactive); Hepatitis B Surface Antigen. Non-Reactive (Nonreactive); Hepatitis C Virus Antibody Reactive (Nonreactive)
[2019-07-07 20:38] LABS: HIV 1 & 2 Antibody Non-Reactive (Non-Reactiv); HIV 1 & 2 Antigen Non-Reactive (Non-Reactiv)
[2019-07-07] MEDS: labetalol 5 mg/mL SDV 20mL 10 MG IVP (21:02)
[2019-07-07 21:13] VITALS: BP 162/111; PULSE 108; RESP 20; O2SAT 96
[2019-07-07 22:03] VITALS: BP 185/113; PULSE 110; RESP 16; O2SAT 98
--- NOTE | 2019-07-10 13:53 | DCPLANNER ---
export freight manager called patient due to multiple visits, unable to speak with patient at this time. export freight manager unable to leave a voicemail for patient at this time.
== END 2019-07-07 22:04 | disposition home or self-care (01) ==
PROVIDERS: Emergency Provider Emergency Medicine; PCP Nurse Practitioner
DX: T14.8XXA Other injury of unspecified body region, initial encounter (principal); F17.210 Nicotine dependence, cigarettes, uncomplicated; X58.XXXA Exposure to other specified factors, initial encounter
CPT/HCPCS: 12345; 36415; 71045; 80053; 80074; 80307; 81001; 83735; 84484; 85025; 87806; 93005; 96361; 96374; 99283; 99284; A9270; J3490; J7030

== ENCOUNTER 2019-09-16 13:31 | Emergency (ER) | payer MEDICAID, SELFPAY ==
[2019-09-16 13:40] VITALS: BP 147/85; PULSE 85; RESP 18; TEMP 36.9; O2SAT 96; BMI 30.7
--- NOTE | 2019-09-16 14:07 | ED_ITS ---
HPI - Male Genitourinary General: Chief complaint: Urogenital-Male Stated complaint: ? Time Seen by Provider: 09/16/19 13:45 History of Present Illness: HPI Narrative: Patient said he just like to have some tests run because is been a while since she had a test run and that he has a little bit of burning with urination last couple days denies any other problems MD Complaint: dysuria Onset (ago): day(s) (2) Duration: intermittent Severity: mild Associated symptoms: Reports no associated symptoms; Deny nausea or vomiting Review of Systems Const: Denies: fever(s), chills or body aches Eyes: Denies: change in vision or blurry vision ENMT: Denies: throat pain or nasal congestion Card: Denies: chest pain or dyspnea on exertion Resp: Denies: dyspnea, productive cough or non-productive cough GI: Denies: abdominal pain, nausea or vomiting : Reports: difficulty urinating Musc: Denies: extremity pain Skin/Breast: Denies: rash Neuro: Denies: headache(s) Psych: Denies: anxiety or depression Bull/Lymph: Denies: easy bruising PFSH ED PFSH: Medical History (Updated 07/15/19 @ 00:01 by ) 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 Schizoaffective disorder, bipolar type Tobacco use disorder Social History Smoking and tobacco status: current every day smoker cigarettes Packs smoked per day: 1 Years cigarettes smoked: 1 Quit status (tobacco): not considering quitting Second hand smoke exposure: No Physical Exam Const: COMMON NORMALS: no acute distress, average body habitus and patient oriented x3 HENMT: COMMON NORMALS: normocephalic HEAD & SCALP: normal to inspection and normocephalic FACE & SINUS: normal facial exam Eye: COMMON NORMALS: conjunctivae normal GENERAL EYE: appearance normal, both eyes and all related structures CONJUNCTIVA: Yes conjunctivae normal Neck/C-Spine: COMMON NORMALS: no JVD Chest: COMMONS NORMALS: normal inspection of the chest Resp: COMMON NORMALS: normal respiratory effort and clear to auscultation bilaterally AUSCULTATION: clear to auscultation bilaterally Cardio: COMMON NORMALS: no JVD, regular rate and regular rhythm RATE: regular rate RHYTHM: regular rhythm GI: COMMON NORMALS: Normal to inspection, nondistended, normoactive bowel sounds present Extremity: COMMON NORMALS: normal to inspection and full ROM Neuro: COMMON NORMALS: patient oriented x3 Course Vital Signs: Vital signs: Vital Signs Temperature 98.4 F 09/16/19 13:40 Pulse Rate 85 09/16/19 13:40 Respiratory Rate 18 09/16/19 13:40 Blood Pressure 147/85 09/16/19 13:40 Pulse Oximetry 96 09/16/19 13:40 Discharge Plan Discharge Prescriptions: No Action aripiprazole [Abilify] 10 mg tablet 10 mg PO DAILY Qty: 30 RF: 0 lithium carbonate 300 mg capsule 300 mg PO BID Qty: 60 RF: 0 gabapentin 100 mg capsule 100 mg PO TID Qty: 90 RF: 0 trazodone 50 mg tablet 50 mg PO BEDTIME PRN (Reason: Sleep) Qty: 30 RF: 0 methocarbamol [Robaxin-750] 750 mg tablet 750 mg PO Q8H Qty: 10 RF: 0 ibuprofen 800 mg tablet 800 mg PO Q8H PRN (Reason: pain) Qty: 20 RF: 0 loperamide [Imodium A-D] 2 mg capsule 2 mg PO Q4H PRN (Reason: loose stool) Qty: 14 RF: 0 lisinopril 10 mg tablet 10 mg PO DAILY Qty: 14 RF: 0 Coding Level of Care Code ED Retail Special Event Associate for Sriram Davalos
[2019-09-16 14:25] LABS: Add Urine Microscopic? YES; Bilirubin Urine Neg (NEGATIVE); Blood Urine 3+ (Negative); Glucose Urine UA Norm (Normal); Ketones Urine Negative (Negative); Leukocyte Esterase Urine Negative (Negative); Nitrate Urine Negative (Negative); Protein Urine Neg (Negative); Specific Gravity, Urine 1.025 (1.005-1.030); Urine Appearance Clear (CLEAR); Urine Color Yellow (Yellow); Urobilinogen Urine Norm (Negative); pH Urine 5 (5-7)
[2019-09-16 14:32] LABS: Bacteria Urine TRACE; Mucus Urine 1+; RBC Urine 15-25 /hpf (0-2); Squamous Epithelial Cell Urine RARE (0-5); WBC Urine RARE /hpf (0-5)
[2019-09-16 14:33] LABS: Add Urine Culture? Yes
== END 2019-09-16 14:20 | disposition home or self-care (01) ==
LOC: ER 14:14
PROVIDERS: Emergency Provider Nurse Practitioner Family
DX: R30.9 Painful micturition, unspecified (principal); F17.210 Nicotine dependence, cigarettes, uncomplicated
CPT/HCPCS: 12345; 81001; 87086; 99282

== ENCOUNTER 2019-09-19 19:58 | Emergency (ER) | payer MEDICAID, SELFPAY ==
[2019-09-19 20:02] VITALS: BP 177/109; PULSE 88; RESP 18; TEMP 36.6; O2SAT 97; BMI 31.4
--- NOTE | 2019-09-19 20:17 | ED_ITS ---
HPI - General Adult General: Chief complaint: General Medical Stated complaint: MHE Time Seen by Provider: 09/19/19 20:02 History of Present Illness: HPI narrative: Patient is a 43-year-old male who comes to the ED with chest pain. Patient has a history of malingering and is giving little detail about current chest pain during my history. Patient also stated he would like for us to give him a ride to [facility] for him to be evaluated there. Onset (ago): day(s) (pt states he often has chest pain.) Location: chest Radiation: non-radiation Severity: mild and similar to prior episodes Quality: aching Pain Consistency: intermittent Relieving factors: none Exacerbating factors: none Associated symptoms: Reports chest pain; Deny dyspnea, headache(s), nausea, rash, palpitations or vomiting Review of Systems Const: Denies: fever(s), chills or fatigue Eyes: Denies: change in vision or eye discomfort ENMT: Denies: throat pain, odynophagia, nasal discharge or nasal congestion Card: Reports: chest pain; Denies: palpitations, edema, swelling of feet/ankles, dyspnea on exertion or orthopnea Resp: Denies: dyspnea, productive cough or non-productive cough GI: Denies: abdominal pain, nausea, vomiting, diarrhea, constipation or hematochezia : Denies: flank pain, difficulty urinating, dysuria or hematuria Musc: Denies: neck pain, back pain or extremity swelling Skin/Breast: Denies: rash or new lesions Neuro: Denies: headache(s), numbness in extremities or weakness in extremities PFS ED PFSH: Medical History 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 Schizoaffective disorder, bipolar type Tobacco use disorder Social History Smoking and tobacco status: current every day smoker cigarettes Packs smoked per day: 1 Years cigarettes smoked: 1 Quit status (tobacco): not considering quitting Second hand smoke exposure: No Physical Exam Narrative: EXAM NARRATIVE: Patient is lying comfortably on the exam bed when I enter the room. He is showing no signs of any distress or pain. Patient was very vague and provided little information or detail when asking him about his chest pain. Const: COMMON NORMALS: patient oriented x3 HENMT: COMMON NORMALS: normocephalic HEAD & SCALP: normocephalic MOUTH: Normal oral and palatal mucosa present THROAT: posterior oropharynx normal and uvula midline Eye: PUPIL: Yes Pupil accommodation reflex normal and Yes Pinpoint pupils bilaterally Neck/C-Spine: COMMON NORMALS: supple GENERAL: Yes normal visual inspection Resp: COMMON NORMALS: normal respiratory effort, No retractions, No use of accessory muscles and clear to auscultation bilaterally AUSCULTATION: clear to auscultation bilaterally Cardio: COMMON NORMALS: regular rate, regular rhythm, S1 normal heart sound present, S2 normal heart sound present, No gallops present (Cardio), No clicks present (Cardio), No murmurs present (Cardio) and Peripheral pulses 2+ throughout RATE: regular rate RHYTHM: regular rhythm HEART SOUNDS: S1 normal heart sound present and S2 normal heart sound present PERIPHERAL PULSES: Peripheral pulses 2+ throughout GI: COMMON NORMALS: Normal to inspection, nondistended, normoactive bowel sounds present, Soft to palpation, non-tender and no masses PALPATION: Yes Soft to palpation : COMMON NORMALS: Yes no CVA tenderness BLADDER/KIDNEY EXAM: Yes no CVA tenderness Back/Pelvis: COMMON NORMALS: no CVA tenderness Extremity: COMMON NORMALS: normal to inspection and no pedal edema Neuro: COMMON NORMALS: patient oriented x3 and moves all extremities Skin: COMMON NORMALS: no rashes or lesions noted GENERAL SKIN EXAM: no rashes or lesions noted and dry skin Course Vital Signs: Vital signs: Vital Signs Temperature 97.9 F 09/19/19 20:02 Pulse Rate 88 09/19/19 20:02 Respiratory Rate 18 09/19/19 20:02 Blood Pressure 177/109 09/19/19 20:02 Pulse Oximetry 97 09/19/19 20:02 MDM - General Adult MDM Narrative: Medical decision making narrative: Patient is a 43-year-old man who comes to the ED with chest pain. CBC, CMP were normal and unremarkable. EKG showed normal sinus rhythm with no ST segment elevation or depression. Troponins were negative. Patient is a known malinger and was discharged with noncardiac chest pain. Patient got upset and stormed out of exam room after I told him about his normal EKG and negative troponins ruling out cardiac cause of chest pain. Patient gave me the middle finger and told me to F#*k you. He did not wait around for his official discharge papers. Patient is a known malingerer Lab Data: Attestation: I reviewed the patient's lab results. Labs: Lab Results 09/19/19 09/19/19 09/19/19 Range/Units 20:44 20:44 20:44 WBC 5.5 (4.0-10.0) 10^3/ uL RBC 4.44 (4.1-5.3) 10^6/u L Hgb 12.6 (11.7-16.6) g/dL Hct 38.2 L (42.0-52.0) % MCV 86.0 (80-94) fL MCH 28.4 (28.0-34.0) pg MCHC 33.0 (30.0-36.0) g/dL RDW 12.9 (12.1-15.1) % Plt Count 201 (130-400) 10^3/c mm MPV 9.3 (7.4-10.4) fL Neut % (Auto) 51.2 % Lymph % (Auto) 36.8 % [place] % (Auto) 8.5 % Eos % (Auto) 2.9 % Baso % (Auto) 0.4 % Neut # (Auto) 2.8 (1.8-7.7) 10^3/u L Lymph # (Auto) 2.0 (0.8-4.8) 10^3/u L [place] # (Auto) 0.5 (0.2-0.9) 10^3/u L Eos # (Auto) 0.2 (0.0-0.8) 10^3/u L Baso # (Auto) 0.0 (0.0-0.1) 10^3/u L Nucleated RBC % (a uto) 0 % Nucleated RBCs # 0.0 /100WBC Sodium 144 (136-145) mmol/L Potassium 3.7 (3.5-5.1) mmol/L Chloride 106 (98-107) mmol/L Carbon Dioxide 26 (22-29) mmol/L Anion Gap 15.7 (5-19) BUN 10 (6-20) mg/dL Creatinine 0.8 (0.7-1.2) mg/dL GFR Calculation 105.5 (90-130) mL/min Glucose 107 (65-115) mg/dL Calculated Osmolal ity 294 (285-295) mOsm/k g Calcium 8.9 (8.5-10.5) mg/dL Total Bilirubin 0.2 (0.15-1.2) mg/dL AST 22 (0-40) U/L ALT 28 (0-41) U/L Alkaline Phosphata se 65 (40-130) IU/L Troponin T Baselin e 6 (0-15) ng/mL Total Protein 6.9 (6.6-8.7) g/dL Albumin 4.6 (3.5-5.2) g/dL Globulin 2.3 (1.3-4.6) g/dL EKG Data^: EKG 1: Attestation: I personally reviewed and interpreted this EKG as follows: EKG interpretation date: 09/19/19 Interpretation: Normal sinus rhythm with occasional PVC. 80 bpm, no ST segment elevation or depression seen. P waves present. Discharge Plan Discharge Patient Disposition: Home, Self-Care Clinical Impression: Non-cardiac chest pain Condition: Stable Prescriptions: No Action aripiprazole [Abilify] 10 mg tablet 10 mg PO DAILY Qty: 30 RF: 0 lithium carbonate 300 mg capsule 300 mg PO BID Qty: 60 RF: 0 gabapentin 100 mg capsule 100 mg PO TID Qty: 90 RF: 0 trazodone 50 mg tablet 50 mg PO BEDTIME PRN (Reason: Sleep) Qty: 30 RF: 0 methocarbamol [Robaxin-750] 750 mg tablet 750 mg PO Q8H Qty: 10 RF: 0 ibuprofen 800 mg tablet 800 mg PO Q8H PRN (Reason: pain) Qty: 20 RF: 0 loperamide [Imodium A-D] 2 mg capsule 2 mg PO Q4H PRN (Reason: loose stool) Qty: 14 RF: 0 lisinopril 10 mg tablet 10 mg PO DAILY Qty: 14 RF: 0 Discharge Orders: Discharge Order (Routine); Ordered 09/19/19 Ordered By: Pavel Rogers Discharge Diet: Regular Discharge Activity: Resume usual activity Activity Restrictions/Additional Instructions: Follow-up with your PCP in 7 to 10 days for reevaluation. Take ibuprofen or Tylenol for pain. Discharge Date/Time: 09/19/19 21:36 Coding Level of Care Code ED Sales Enablement Specialist for Chg Fwd Exam Comprehensive
--- NOTE | 2019-09-19 20:37 | ECG_ITS ---
Measurements Intervals [place] Rate: 80 P: 25 OR: 160 QRS: 30 QRSD: 107 T: 89 QT: 412 QTc: 477 SINUS RHYTHM WITH OCCASIONAL VENTRICULAR PREMATURE COMPLEXES NONSPECIFIC T-WAVE ABNORMALITY Compared to ECG 07/07/2019 19:28:44 Ventricular premature complex(es) now present Sinus tachycardia no longer present T-wave abnormality still present Electronically Signed On 09-21-2019 18:18:11 CDT by Zoe Hernandez M.D. [email or web address]
[2019-09-19 20:51] LABS: Basophils % 0.4 %; Eosinophils # 0.2 10^3/uL (0.0-0.8); Eosinophils % 2.9 %; Hematocrit 38.2 % (42.0-52.0); Hemoglobin 12.6 g/dL (11.7-16.6); Lymphocytes % 36.8 %; Mean Corpuscular Hemoglobin 28.4 pg (28.0-34.0); Mean Platelet Volume 9.3 fL (7.4-10.4); Monocytes # 0.5 10^3/uL (0.2-0.9); Monocytes % 8.5 %; Neutrophils # 2.8 10^3/uL (1.8-7.7); Neutrophils % 51.2 %; Nucleated Red Blood Cells % 0 %; Platelet Count 201 10^3/cmm (130-400); Red Blood Count 4.44 10^6/uL (4.1-5.3); Red Cell Distribution Width 12.9 % (12.1-15.1); White Blood Count 5.5 10^3/uL (4.0-10.0)
[2019-09-19 21:10] LABS: Alanine Aminotransferase 28 U/L (0-41); Albumin Level 4.6 g/dL (3.5-5.2); Alkaline Phosphatase 65 IU/L (40-130); Anion Gap 15.7 (5-19); Aspartate Amino Transferase 22 U/L (0-40); Blood Urea Nitrogen 10 mg/dL (6-20); Calcium 8.9 mg/dL (8.5-10.5); Carbon Dioxide 26 mmol/L (22-29); Chloride 106 mmol/L (98-107); Globulin 2.3 g/dL (1.3-4.6); Glomerular Filtration Rate 105.5 mL/min (90-130); Glucose 107 mg/dL (65-115); Osmolality Calculated 294 mOsm/kg (285-295); Potassium 3.7 mmol/L (3.5-5.1); Sodium 144 mmol/L (136-145); Total Bilirubin 0.2 mg/dL (0.15-1.2); Total Protein 6.9 g/dL (6.6-8.7)
[2019-09-19 21:12] LABS: Troponin(5th) Baseline 6 ng/mL (0-15)
== END 2019-09-19 21:36 | disposition home or self-care (01) ==
PROVIDERS: Emergency Provider Physician Assistant
DX: R07.9 Chest pain, unspecified (principal); F17.210 Nicotine dependence, cigarettes, uncomplicated
CPT/HCPCS: 12345; 36415; 80053; 84484; 85025; 93005; 99281; 99283

== ENCOUNTER → 2019-09-25 08:02 | Outpatient (BNVA) | payer MEDICAID, SELFPAY | PROVIDERS: Visit Provider Nurse Practitioner Psychiatric/Mental Health | DX: F25.0 Schizoaffective disorder, bipolar type (principal); Z59.0 Homelessness; F17.200 Nicotine dependence, unspecified, uncomplicated; F15.10 Other stimulant abuse, uncomplicated | CPT/HCPCS: 99212 ==

== ENCOUNTER 2019-09-25 11:37 | Emergency (ER) | payer MEDICAID, SELFPAY | END 2019-09-25 12:00 | disposition left against medical advice (07) | LOC: ER 11:56 | PROVIDERS: Emergency Provider Emergency Medicine | DX: Z53.21 Procedure and treatment not carried out due to patient leaving prior to being seen by health care provider (principal) | CPT/HCPCS: 99281 ==

== ENCOUNTER 2019-09-25 18:24 | Emergency (ER) | payer MEDICAID, SELFPAY ==
[2019-09-25 18:46] VITALS: BP 116/73; PULSE 79; RESP 16; TEMP 36.6; O2SAT 96; BMI 31.1
--- NOTE | 2019-09-25 19:46 | ED_ITS ---
HPI - Psych General: Chief Complaint: Psychiatric Symptoms Stated Complaint: meth detox? Time Seen by Provider: 09/25/19 19:42 Source: patient Mode of arrival: ambulatory History of Present Illness: HPI Narrative: Overall is a 43-year-old male has a history of methamphetamine abuse and states he would like to detox. Patient has been seen here multiple times for the same. He has no suicidal homicidal id eations. Denies any worsening or improving factors. 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 Homeless Psychotic disorder Schizoaffective disorder, bipolar type Tobacco use disorder Social History Smoking and tobacco status: current every day smoker cigarettes Packs smoked per day: 1 Years cigarettes smoked: 1 Quit status (tobacco): not considering quitting Second hand smoke exposure: No Physical Exam Const: COMMON NORMALS: no acute distress, patient oriented x3 and healthy appearing HENMT: COMMON NORMALS: normocephalic and atraumatic HEAD & SCALP: normocephalic and atraumatic Eye: COMMON NORMALS: Equal, round and reactive pupils present and EOMs intact bilaterally PUPIL: Yes Equal, round and reactive pupils present Neck/C-Spine: COMMON NORMALS: full ROM and supple Chest: COMMONS NORMALS: normal inspection of the chest and normal palpation of entire chest wall Resp: COMMON NORMALS: normal respiratory effort, No retractions, No use of accessory muscles and clear to auscultation bilaterally AUSCULTATION: clear to auscultation bilaterally Cardio: COMMON NORMALS: regular rate, regular rhythm and No murmurs present (Cardio) RATE: regular rate RHYTHM: regular rhythm GI: COMMON NORMALS: Normal to inspection, nondistended, normoactive bowel sounds present, Soft to palpation, non-tender and no masses PALPATION: Yes Soft to palpation Extremity: COMMON NORMALS: normal to inspection and full ROM Neuro: COMMON NORMALS: patient oriented x3, moves all extremities and no focal motor deficits Psych: COMMON NORMALS: mental status grossly normal, Normal thought process present and cooperative THOUGHT PROCESS: Normal thought process present Skin: COMMON NORMALS: no rashes or lesions noted and no wounds GENERAL SKIN EXAM: no rashes or lesions noted MDM - Psych MDM Narrative: Medical decision making narrative: Patient presents here seeking meth detox. We do not do meth detox here instructed him to follow-up with [facility]. Patient is well-appearing here and is stable for discharge. He is to return if worsening. Discharge Plan Discharge Patient Disposition: Home, Self-Care Clinical Impression: Episodic methamphetamine abuse Condition: Stable Prescriptions: No Action aspirin 81 mg tablet,delayed release (DR/EC) 81 mg PO DAILY RF: 0 fluoxetine 10 mg capsule 10 mg PO DAILY RF: 0 metoprolol succinate 25 mg tablet extended release 24 hr 25 mg PO DAILY RF: 0 Proair Digihaler 90 mcg/actuation aero powdr breath act w/sensor 2 inh INHALATION Q4H RF: 0 ibuprofen [IBU] 800 mg tablet 800 mg PO Q8H PRN (Reason: pain) RF: 0 lisinopril 5 mg tablet 5 mg PO DAILY RF: 0 divalproex 250 mg tablet,delayed release (DR/EC) 250 mg PO BID RF: 0 trazodone 50 mg tablet 50 mg PO DAILY PRN (Reason: insomnia) Qty: 30 RF: 1 lithium carbonate 300 mg capsule 300 mg PO BID Qty: 60 RF: 1 Discharge Orders: Discharge Order (Routine); Ordered 09/25/19 Ordered By: Mora Canseco Discharge Diet: Advance as tolerated Discharge Activity: Resume usual activity Patient Instructions: Methamphetamine Abuse (ED) Coding Level of Care Code ED Molecular Biologist for Sriram Davalos
[2019-09-25 20:11] VITALS: BP 110/63; PULSE 68; RESP 18; TEMP 36.9; O2SAT 95
== END 2019-09-25 20:12 | disposition home or self-care (01) ==
PROVIDERS: Emergency Provider Emergency Medicine
DX: F15.10 Other stimulant abuse, uncomplicated (principal); Z79.82 Long term (current) use of aspirin; F17.210 Nicotine dependence, cigarettes, uncomplicated
CPT/HCPCS: 12345; 99284

== ENCOUNTER → 2019-10-18 07:48 | Outpatient (BNVA) | payer MEDICAID, SELFPAY | PROVIDERS: Visit Provider Nurse Practitioner Psychiatric/Mental Health | DX: F25.0 Schizoaffective disorder, bipolar type (principal); F15.10 Other stimulant abuse, uncomplicated; Z76.5 Malingerer [conscious simulation] | CPT/HCPCS: 99212 ==

== ENCOUNTER → 2019-11-01 07:52 | Outpatient (BNVA) | payer MEDICAID, SELFPAY | PROVIDERS: Visit Provider Nurse Practitioner Psychiatric/Mental Health | DX: F25.0 Schizoaffective disorder, bipolar type (principal); F15.10 Other stimulant abuse, uncomplicated; Z76.5 Malingerer [conscious simulation] | CPT/HCPCS: 99213 ==

== ENCOUNTER → 2019-11-05 11:39 | Outpatient (BNVA) | payer MEDICAID, SELFPAY | PROVIDERS: Visit Provider Nurse Practitioner Psychiatric/Mental Health | DX: Z51.81 Encounter for therapeutic drug level monitoring (principal); Z79.899 Other long term (current) drug therapy | CPT/HCPCS: 80178; 84439; 84443 ==

== ENCOUNTER → 2019-11-29 16:38 | Outpatient (BNVA) | payer MEDICAID, SELFPAY | PROVIDERS: Visit Provider Internal Medicine | DX: B19.20 Unspecified viral hepatitis C without hepatic coma (principal); R76.8 Other specified abnormal immunological findings in serum; F17.200 Nicotine dependence, unspecified, uncomplicated | CPT/HCPCS: 87522 ==

== ENCOUNTER → 2019-12-06 08:47 | Outpatient (BNVA) | payer MEDICAID, SELFPAY | PROVIDERS: Visit Provider Nurse Practitioner Psychiatric/Mental Health | DX: F25.0 Schizoaffective disorder, bipolar type (principal); F43.25 Adjustment disorder with mixed disturbance of emotions and conduct; F15.10 Other stimulant abuse, uncomplicated | CPT/HCPCS: 99212 ==